=== PATIENT | female | born 1935 | race Caucasian/White ===

== ENCOUNTER 2018-11-11 17:29 | Emergency (ER) | payer MEDICARE ==
[2018-11-11] MEDS ORDERED: Ondansetron INJ* 2 MG/ML VIAL IV ONE (18:01)
[2018-11-11] MEDS ORDERED: NS 0.9% 1000 ML** 1,000 ML IV ONE (18:01)
[2018-11-11] MEDS ORDERED: Morphine VIAL* 10 MG/ML 1 ML VIAL IV ONE (18:01)
--- NOTE | 2018-11-11 18:07 | ED ---
Abdominal Pain/Female - HPI Summary HPI Summary: This pt is an 83 y/o female presenting to [facility] for left flank pain x3 days. She states her pain is non radiating and located on her left flank. Pt reports her pain is aggravated with deep breaths and sneezing. Denies any chest pain, SOB, nausea, vomiting, diarrhea, constipation. Per nurse's assessment, pt rates her pain 10/10 in severity. PMHx includes shingles, cholecystectomy, kidney stones. - History of Current Complaint Chief Complaint: EDAbdPain Stated Complaint: PAIN IN LEFT SIDE/HEART DROPPED DOWN, ITCHY PER PT Time Seen by Provider: 11/11/18 17:57 Hx Obtained From: Patient Onset/Duration: Lasting Days - 3, Still Present Timing: Days - 3 Severity Currently: Severe Pain Intensity: 10 Pain Scale Used: 0-10 Numeric Location: Flank - left Radiates: No Aggravating Factor(s): Deep Breaths Alleviating Factor(s): Nothing Associated Signs and Symptoms: Negative: Fever, Chest Pain, Constipation, Nausea , Vomiting, Diarrhea, Other: - SOB Allergies/Adverse Reactions: Allergies Allergy/AdvReac Type Severity Reaction Status Date / Time No Known Allergies Allergy Verified 11/11/18 17:34 PMH/Surg Hx/FS Hx/Imm Hx Endocrine/Hematology History: Reports: Hx Thyroid Disease - ON MEDS Cardiovascular History: Reports: Hx Hypertension - NO MEDS Denies: Hx Pacemaker/ICD, Other Cardiovascular Problems/Disorders GI History: Reports: Hx Gastroesophageal Reflux Disease, Hx Hiatal Hernia Musculoskeletal History: Reports: Hx Arthritis - WRIST AND FEET, LEGS AND BACK, Hx Bursitis Sensory History: Reports: Hx Cataracts - HAS HAD CATARACT SURGERY, Hx Contacts or Glasses Denies: Hx Hearing Aid Opthamlomology History: Reports: Hx Cataracts - HAS HAD CATARACT SURGERY, Hx Contacts or Glasses Neurological History: Denies: Other Neuro Impairments/Disorders Psychiatric History: Reports: Hx Anxiety - ON MEDS, Hx Depression - SEVERAL TIMES OVER THE YEARS, Hx Panic Disorder - Cancer History Cancer Type, Location and Year: Basal - Surgical History Surgery Procedure, Year, and Place: HYSTERECTOMY, , [facility]. GALLBLADDER, , [facility]. EMILIA CATARACTS, [facility], 2010. 1990S, EMILIA WRISTS, RIGHT 3 TIMES, [facility] - 4TH WRIST SURGERY NOW WITH PLATE. ABD SURGERY (ADIPOSE TISSUE REMOVAL) AND EMILIA BREAST REDUCTION, , [facility]. 6-7 SKIN CANCERS REMOVED. Marnie Hx Anesthesia Reactions: No Infectious Disease History: No Infectious Disease History: Reports: History Other Infectious Disease - shingles Denies: Traveled Outside the [place] in Last 30 Days - Family History Known Family History: Negative: Cardiac Disease, Hypertension, Diabetes - Social History Alcohol Use: None Substance Use Type: Reports: None Smoking Status (MU): Never Smoked Tobacco Have You Smoked in the Last Year: No Review of Systems Negative: Fever, Chills Negative: Chest Pain Negative: Shortness Of Breath Negative: Vomiting, Diarrhea, Nausea, Other - constipation Positive: flank pain - left All Other Systems Reviewed And Are Negative: Yes Physical Exam - Summary Physical Exam Summary: VITAL SIGNS: Reviewed. GENERAL: Patient is a well-developed and nourished female who is lying comfortable in the stretcher. Patient is not in any acute respiratory distress. HEAD AND FACE: Normocephalic EYES: PERRLA, EOMI x 2. EARS: Hearing grossly intact. MOUTH: Oropharynx within normal limits. NECK: Supple, trachea is midline, no adenopathy, no JVD, no carotid bruit. CHEST: Symmetric, no tenderness at palpation LUNGS: Clear to auscultation bilaterally. No wheezing or crackles. CVS: Regular rate and rhythm, S1 and S2 present, no murmurs or gallops appreciated. ABDOMEN: Soft, left flank tenderness. Bowel sounds are normal. No abdominal abnormal pulsations. EXTREMITIES: Full ROM in all major joints, no edema, no cyanosis or clubbing. NEURO: Alert and oriented x 3. No acute neurological deficits. Speech is normal and follows commands. SKIN: Dry and warm Triage Information Reviewed: Yes Vital Signs On Initial Exam: Initial Vitals Temp Pulse Resp BP Pulse Ox 98.3 F 101 18 121/74 99 11/11/18 17:34 11/11/18 17:34 11/11/18 17:34 11/11/18 17:34 11/11/18 17:34 Vital Signs Reviewed: Yes Diagnostics - Vital Signs Vital Signs Temp Pulse Resp BP Pulse Ox 11/11/18 17:34 98.3 F 101 18 121/74 99 - Laboratory Result Diagrams: 11/11/18 18:41 11/11/18 18:41 Lab Statement: Any lab studies that have been ordered have been reviewed, and results considered in the medical decision making process. - Radiology Chest XR Radiology Interpretation Completed By: ED Physician Summary of Radiographic Findings: Cardiomegaly. No acute pathology. She may have small pleural effusion. Questionable pulmonary nodules. - CT Abdomen/Pelvis CT CT Interpretation Completed By: Radiologist Summary of CT Findings: IMPRESSION: 1. No acute intra-abdominal pathology. 2. Scattered nodular opacities throughout the visualized lung bases, largest in the left lower lobe measuring 1.5 cm. Recommend correlation with dedicated chest imaging. 3. Other chronic findings, as above. Dr. Wilde has reviewed this report. - EKG 18:30 Cardiac Rate: NL - at 80 bpm EKG Rhythm: Sinus Rhythm EKG Comparison: No Significant Change - Similar to prior EKG on 02/03/15. Summary of EKG Findings: No ST elevations Re-Evaluation - Re-Evaluation First Eval Re-Evaluation Time: 18:28 Comment: Pt reports she is itchy all over. She states she has doubled up on her dose for Ativan. Will order Benadryl. Second Eval Re-Evaluation Time: 21:15 Comment: Reviewed lab, CT and CXR with pt. Pt will be discharged home with follow up from PCP. Abdominal Pain Fem Course/Dx - Course Course Of Treatment: This patient is an 83-year-old female who presents to the emergency department with a chief complaint of having left flank pain. She reports that the pain has been there for 3 days. The patient is intermittent and 10 out of 10 in severity. Patient reports history of kidney stones. Test results without any significant abnormality except for creatinine 1.33. Alkaline phosphatase is 118 and CRP is 87.14. Patient urineted w/o giving a sample. Waited a couple hours and she is unable to give urine. She reports she will f/u with PCP to check for a UTI. In the ED course the patient was given IV fluids and she was given Zofran and morphine for the pain. Abdominal/pelvic CT impression: No acute intra-abdominal pathology. His scattered nodular opacities throughout the visualized lung bases, largest in the left lower lobe measuring 1.5 cm. Positive chronic findings. After the patient was given these medications the patients symptoms improved. At this point the pain is 1 out of 10. Therefore I believe that the patient has musculoskeletal pain. I do not believe that the patient has pneumonia, she doesnt have any hypoxia or tachycardia therefore no suspicion for PE. Patient has lung nodules which she needs to follow up on with the primary care physician as an outpatient follow- up. Patient was given instructions to return to the emergency room if the patient develops any type of increased pain, nausea vomiting, dysuria or hematuria or fever. The patient also had hives and itching for which the patient was given Benadryl. The patient does have any shortness of breath, swelling of the tongue, or airway dysfunction. Patient is alert and oriented x3 , and hemodynamically stable. - Diagnoses Provider Diagnoses: Flank pain, Lung nodules, Urticaria Discharge - Sign-Out/Discharge Documenting (check all that apply): Patient Departure - Discharge home Patient Received Moderate/Deep Sedation with Procedure: No - Discharge Plan Condition: Stable Disposition: HOME Prescriptions: diPHENhydraMINE PO* [Benadryl PO 25 MG TAB*] 25 mg PO TID PRN #20 tab PRN Reason: Itching HYDROcodone/ACETAMIN 5-325 MG* [[place] 5-325 TAB*] 1 tab PO Q8H PRN #12 tab MDD 3 TABS PRN Reason: Pain Patient Education Materials: Urticaria (ED), Flank Pain (ED), Pulmonary Nodules (ED) Referrals: Naomi Ratliff MD [Primary Care Provider] - Additional Instructions: PLEASE FOLLOW UP WITH YOUR PRIMARY CARE PROVIDER IN 2-3 DAYS. RETURN TO THE ED FOR ANY WORSENING OR NEW SYMPTOMS. - Billing Disposition and Condition Condition: STABLE Disposition: Home - Attestation Statements Document Initiated by Son: Yes Documenting Scribe: Ingrid Avila Provider For Whom Son is Documenting (Include Credential): Jin Wilde MD Scribe Attestation: Ingrid Albright, scribed for Jin Wilde MD on 11/12/18 at 1015. Scribe Documentation Reviewed: Yes Provider Attestation: The documentation as recorded by the Ingrid noriega accurately reflects the service I personally performed and the decisions made by , Jin Wilde MD Status of Scribe Document: Viewed
[2018-11-11] MEDS ORDERED: diPHENhydraMINE PO* 25 MG PO ONE ×2 (18:28→21:13)
[2018-11-11 18:51] LABS: ABS Basophils 0.1 10^3/ul (0-0.2); ABS Eosinophils 0.4 10^3/ul (0-0.6); ABS Lymphocytes 1.1 10^3/ul (1.0-4.8); ABS Monocytes 0.9 10^3/ul (0-0.8); ABS Neutrophils 5.9 10^3/ul (1.5-7.7); ABS Nucleated RBC 0 10^3/ul; Eosinophil % 4.9 %; Hematocrit 40 % (35-47); Lymphocyte % 13.4 %; Mean Corpuscular HGB Conc 33 g/dl (31-36); Mean Corpuscular Hemoglobin 29 pg (27-31); Mean Corpuscular Volume 90 fL (80-97); Mean Platelet Volume 6.7 fL (7.4-10.4); Nucleated Red Blood Cells % 0; Platelet Count 309 10^3/ul (150-450); Red Blood Count 4.44 10^6/ul (4.00-5.40); Red Cell Distribution Width 13 % (10.5-15); White Blood Count 8.5 10^3/ul (3.5-10.8)
[2018-11-11 19:24] LABS: Albumin 4.2 g/dL (3.2-5.2); Albumin/Globulin Ratio 1.1 (1-3); C Reactive Protein 87.14 mg/L (<8.01); Calcium 9.5 mg/dL (8.6-10.3); EGFR African American 46.2 (>60); EGFR Non-African American 38.2 (>60); Potassium 4.2 mmol/L (3.5-5.0); Total Bilirubin 0.7 mg/dL (0.2-1.0); Total Protein 8.2 g/dL (6.4-8.9)
[2018-11-11] MEDS ORDERED: HYDROcodone/ACETAMIN 5-325 MG* 1 TAB PO ONE (21:13)
[2018-11-11 21:26] VITALS: BP 142/88
== END 2018-11-11 21:45 | disposition home or self-care (01) ==
LOC: ED 17:29
DX: R10.84 Generalized abdominal pain (principal); R91.8 Other nonspecific abnormal finding of lung field; L50.9 Urticaria, unspecified; K21.9 Gastro-esophageal reflux disease without esophagitis; Z87.19 Personal history of other diseases of the digestive system
CPT/HCPCS: 36415; 71046; 74176; 80053; 82150; 82550; 83605; 83690; 83880; 84484; 85025; 86140; 93005; 96374; 96375; 99283; A9270-GY; J2270; J2405

== ENCOUNTER 2018-11-24 13:27 | Emergency (ER) | payer MEDICARE ==
--- NOTE | 2018-11-24 16:56 | ED ---
Complex/Multi-Sys Presentation - HPI Summary HPI Summary: This patient is an 83 year old F presenting to ED with a chief complaint of LLQ abdominal pain radiating to the back but now it has rested on the R side of her abdomen since 2 weeks ago. The CC is described as sharp. She was seen in the ED 1 week ago and she had a CT done which was negative. The patient rates the pain 2/10 in severity. Symptoms aggravated by movement. Symptoms alleviated by nothing. Patient reports diffuse pruritus like somethings running through me for about 3 weeks ago and urinary incontinence (only has been going 2x a day, began a couple days ago). Patient denies N/V, SOB, CP, and edema. She has not been able to get in to see her PCP. The patient saw a doctor and she was negative for a UTI. The patient also saw a mechanical test technician for the rash and she was given a cream. - History Of Current Complaint Chief Complaint: EDAbdPain Time Seen by Provider: 11/24/18 13:43 Hx Obtained From: Patient Onset/Duration: Sudden Onset, Lasting Weeks Timing: Constant, Weeks Severity Currently: Mild - 2/10 Location: Pain At: - R-sided abdominal pain Aggravating Factor(s): movement Alleviating Factor(s): nothing Associated Signs And Symptoms: Positive: Abdominal Pain. Negative: SOB, Chest Pain, Edema, Nausea, Vomiting - Allergies/Home Medications Allergies/Adverse Reactions: Allergies Allergy/AdvReac Type Severity Reaction Status Date / Time No Known Allergies Allergy Verified 11/24/18 13:36 PMH/Surg Hx/FS Hx/Imm Hx Endocrine/Hematology History: Reports: Hx Thyroid Disease - ON MEDS Cardiovascular History: Reports: Hx Hypertension - NO MEDS Denies: Hx Pacemaker/ICD, Other Cardiovascular Problems/Disorders GI History: Reports: Hx Gastroesophageal Reflux Disease, Hx Hiatal Hernia Musculoskeletal History: Reports: Hx Arthritis - WRIST AND FEET, LEGS AND BACK, Hx Bursitis Sensory History: Reports: Hx Cataracts - HAS HAD CATARACT SURGERY, Hx Contacts or Glasses Denies: Hx Hearing Aid Opthamlomology History: Reports: Hx Cataracts - HAS HAD CATARACT SURGERY, Hx Contacts or Glasses Neurological History: Denies: Other Neuro Impairments/Disorders Psychiatric History: Reports: Hx Anxiety - ON MEDS, Hx Depression - SEVERAL TIMES OVER THE YEARS, Hx Panic Disorder - Cancer History Cancer Type, Location and Year: Basal - Surgical History Surgery Procedure, Year, and Place: HYSTERECTOMY, , [facility]. GALLBLADDER, , [facility]. EMILIA CATARACTS, [facility], 2010. 1990S, EMILIA WRISTS, RIGHT 3 TIMES, [facility] - 4TH WRIST SURGERY NOW WITH PLATE. ABD SURGERY (ADIPOSE TISSUE REMOVAL) AND EMILIA BREAST REDUCTION, , [facility]. 6-7 SKIN CANCERS REMOVED. Marnie Hx Anesthesia Reactions: No Infectious Disease History: No Infectious Disease History: Reports: History Other Infectious Disease - shinheidirip Denies: Traveled Outside the US in Last 30 Days - Family History Known Family History: Negative: Cardiac Disease, Hypertension, Diabetes - Social History Alcohol Use: None Substance Use Type: Reports: None Smoking Status (MU): Never Smoked Tobacco Have You Smoked in the Last Year: No Review of Systems Negative: Chest Pain Negative: Shortness Of Breath Positive: Abdominal Pain - LLQ abdominal pain radiating to the back but now it has rested on the R side of her abdomen . Negative: Vomiting, Nausea Positive: incontinence Positive: Other - back pain. Negative: Edema All Other Systems Reviewed And Are Negative: Yes Physical Exam - Summary Physical Exam Summary: Constitutional: Well-developed, Well-nourished, Alert. (-) Distressed Skin: Warm, Dry, Erythematous, papular, excoriated rash on her back HENT: Normocephalic; Atraumatic Eyes: Conjunctiva normal Neck: Musculoskeletal ROM normal neck. (-) JVD, (-) Stridor, (-) Tracheal deviation Cardio: Rhythm regular, rate normal, Heart sounds normal; Intact distal pulses; The pedal pulses are 2+ and symmetric. Radial pulses are 2+ and symmetric. (-) Murmur Pulmonary/Chest wall: Effort normal. (-) Respiratory distress, (-) Wheezes, (-) Rales Abd: Soft, (-) tenderness, (-) Distension, (-) Guarding, (-) Rebound Musculoskeletal: (-) Edema Lymph: (-) Cervical adenopathy Neuro: Alert, Oriented x3 Psych: Mood and affect Normal Triage Information Reviewed: Yes Vital Signs On Initial Exam: Initial Vitals Temp Pulse Resp BP Pulse Ox 98.2 F 85 18 129/75 98 11/24/18 13:37 11/24/18 13:37 11/24/18 13:37 11/24/18 13:37 11/24/18 13:37 Vital Signs Reviewed: Yes Diagnostics - Vital Signs Vital Signs Temp Pulse Resp BP Pulse Ox 11/24/18 15:54 98.1 F 74 16 120/75 98 11/24/18 13:37 98.2 F 85 18 129/75 98 - Laboratory Result Diagrams: 11/24/18 17:32 11/24/18 17:35 Lab Statement: Any lab studies that have been ordered have been reviewed, and results considered in the medical decision making process. Complex Multi-Symp Course/Dx Assessment/Plan: This patient is an 83 year old F presenting to ED with a chief complaint of LLQ abdominal pain radiating to the back but now it has rested on the R side of her abdomen since 2 weeks ago. There are no significant abnormalities upon physical exam. In the ED course, the patient was administered Flexeril and Atarax. Blood work reveals slightly elevated absolute monos, absolute eos, BUN, creatinine, and alkaline phosphatase, and decreased Hgb and MPV. UA is negative. She is diagnosed with chronic flank pain and dermatitis. She will be discharged home with a prescription for Flexeril and Atarax. She agrees with this plan and understands the need for return to the ED for any new or worsening symptoms. - Diagnoses Provider Diagnoses: Chronic flank pain, Dermatitis Discharge - Sign-Out/Discharge Documenting (check all that apply): Patient Departure - Patient will be discharged home. Patient Received Moderate/Deep Sedation with Procedure: No - Discharge Plan Condition: Good Disposition: HOME Prescriptions: Cyclobenzaprine TAB* [Flexeril 10 MG TAB*] 5 mg PO TID PRN #20 tab PRN Reason: Pain hydrOXYzine HCL TAB* [Atarax 25 MG TAB*] 25 mg PO QID PRN #20 tab PRN Reason: Itching Patient Education Materials: Flank Pain (ED), Dermatitis (ED) Print Language: OCCITAN Referrals: Naomi Ratliff MD [Primary Care Provider] - - Billing Disposition and Condition Condition: GOOD Disposition: Home - Attestation Statements Document Initiated by Scribe: Yes Documenting Scribe: Pedro Christine Provider For Whom Scribe is Documenting (Include Credential): Madalyn Powell Scribe Attestation: Pedro Albright, scribed for Madalyn Frank on 11/24/18 at 2113. Scribe Documentation Reviewed: Yes Provider Attestation: The documentation as recorded by the scribe, Pedro Christine accurately reflects the service I personally performed and the decisions made by me, Madalyn Powell Status of Scribe Document: Viewed
[2018-11-24 17:45] LABS: ABS Basophils 0.1 10^3/ul (0-0.2); ABS Eosinophils 0.7 10^3/ul (0-0.6); ABS Lymphocytes 1.6 10^3/ul (1.0-4.8); ABS Monocytes 0.9 10^3/ul (0-0.8); ABS Neutrophils 5.4 10^3/ul (1.5-7.7); ABS Nucleated RBC 0 10^3/ul; Eosinophil % 8.1 %; Hematocrit 35 % (33-41); Hemoglobin 11.5 g/dL (12.0-16.0); Lymphocyte % 18.7 %; Mean Corpuscular HGB Conc 33 g/dL (31-36); Mean Corpuscular Hemoglobin 30 pg (27-31); Mean Corpuscular Volume 90 fL (80-97); Mean Platelet Volume 6.8 fL (7.4-10.4); Nucleated Red Blood Cells % 0; Platelet Count 343 10^3/uL (150-450); Red Blood Count 3.91 10^6 /uL (3.70-4.87); Red Cell Distribution Width 14 % (10.5-15); White Blood Count 8.8 10^3/uL (3.5-10.8)
[2018-11-24 18:01] LABS: Albumin 3.7 g/dL (3.2-5.2); Albumin/Globulin Ratio 1.1 (1-3); BUN/Creatinine Ratio 35.9 (8-20); Calcium 9.4 mg/dL (8.6-10.3); EGFR African American 62.1 (>60); EGFR Non-African American 51.3 (>60); Globulin 3.3 g/dL (2-4); Potassium 4.4 mmol/L (3.5-5.0); Total Bilirubin 0.5 mg/dL (0.2-1.0)
[2018-11-24 18:21] LABS: Urine Appearance Clear; Urine Bilirubin Negative (Negative); Urine Blood Negative (Negative); Urine Color Yellow; Urine Glucose Negative (Negative); Urine Ketones Negative (Negative); Urine Nitrite Negative (Negative); Urine Protein Negative (Negative); Urine Specific Gravity 1.025 (1.010-1.030); Urine Urobilinogen Negative (Negative)
[2018-11-24] MEDS ORDERED: Cyclobenzaprine TAB* 10 MG PO ONE (18:37)
[2018-11-24] MEDS ORDERED: hydrOXYzine HCL TAB* 25 MG PO ONE (18:37)
[2018-11-24 19:31] VITALS: BP 120/76
== END 2018-11-24 19:29 | disposition home or self-care (01) ==
LOC: ED 13:27
DX: R10.32 Left lower quadrant pain (principal); L30.9 Dermatitis, unspecified; M54.9 Dorsalgia, unspecified; R32 Unspecified urinary incontinence; E07.9 Disorder of thyroid, unspecified; F41.9 Anxiety disorder, unspecified; Z90.49 Acquired absence of other specified parts of digestive tract
CPT/HCPCS: 36415; 80053; 81003; 85025; 99282; A9270-GY

== ENCOUNTER 2018-12-08 17:20 | Inpatient (IN) | payer MEDICARE ==
[2018-12-08 17:59] LABS: ABS Basophils 0.1 10^3/ul (0-0.2); ABS Eosinophils 0.1 10^3/ul (0-0.6); ABS Lymphocytes 1.2 10^3/ul (1.0-4.8); ABS Monocytes 0.6 10^3/ul (0-0.8); ABS Neutrophils 7.7 10^3/ul (1.5-7.7); ABS Nucleated RBC 0 10^3/ul; Hematocrit 43 % (33-41); Hemoglobin 14.5 g/dL (12.0-16.0); Lymphocyte % 12.5 %; Mean Corpuscular HGB Conc 34 g/dL (31-36); Mean Corpuscular Hemoglobin 30 pg (27-31); Mean Corpuscular Volume 88 fL (80-97); Mean Platelet Volume 7.6 fL (7.4-10.4); Nucleated Red Blood Cells % 0; Platelet Count 348 10^3/uL (150-450); Red Cell Distribution Width 15 % (10.5-15); White Blood Count 9.7 10^3/uL (3.5-10.8)
--- NOTE | 2018-12-08 17:59 | ED ---
Complex/Multi-Sys Presentation - HPI Summary HPI Summary: This patient is an 83 year old F presenting to ED accompanied by family with a chief complaint of increased memory loss since 12/04/2018. Her most recent fall was about 1 hour ago. The patient reports she hit her head on 12/06/18 that was unwitnessed. According to the nurse, the patient is unable to answer orientation questions except who she is and where shes at. The patient rates the pain 0/10 in severity. Symptoms aggravated by nothing. Symptoms alleviated by nothing. Patients family says she is more forgetful, and is c/o lower abdominal pain and pruritus. Patient says she has CP and cramps in my lungs. She is usually able to ambulate without a wheelchair or walker but has been using it recently because of how many times she falls. Patients family says the patient is refusing to eat. Patient denies dysuria, hematuria, and SOB. The nurse says no facial droop or arm weakness noted. Daughter says the patient has been sick for about 5 weeks. PMHx of removal of cancer spot on her back on 2018. - History Of Current Complaint Chief Complaint: EDWeakness Time Seen by Provider: 12/08/18 17:34 Hx Obtained From: Patient, Family/Harvest Manager - accompanied by family Onset/Duration: Sudden Onset, Lasting Days, Still Present Timing: Constant, Days Severity Currently: None Aggravating Factor(s): nothing Alleviating Factor(s): nothing Associated Signs And Symptoms: Positive: Chest Pain, Abdominal Pain - lower, Other - increased memory loss, "cramps in my lungs", pruritus, recent falls, decreased PO; denies dysuria, hematuria, and SOB. Negative: SOB - Allergies/Home Medications Allergies/Adverse Reactions: Allergies Allergy/AdvReac Type Severity Reaction Status Date / Time No Known Allergies Allergy Verified 11/24/18 13:36 Home Medications: Home Medications Doxycycline Hyclate 50 mg PO BID 12/08/18 [History Confirmed 12/08/18] Gabapentin CAP(*) [Neurontin 300 CAP(*)] 300 mg PO TID 12/08/18 [History Confirmed 12/08/18] Ibuprofen TAB* [Motrin TAB* 800 MG] 800 mg PO BID PRN 12/08/18 [History Confirmed 12/08/18] LORazepam TAB(*) [Ativan 1 MG TAB (*)] 1 mg PO DAILY PRN 12/08/18 [History Confirmed 12/08/18] Levothyroxine TAB* [Synthroid TAB*] 75 mcg PO QAM 12/08/18 [History Confirmed ] Permethrin 5% CREAM* 1 applic TOPICAL SEE INSTRUCTIONS 12/08/18 [History Confirmed 12/08/18] Triamcinolone 0.1% CREAM(NF) [Kenalog Cream 0.1%(NF)] 1 applic TOPICAL BID 12/08 [History Confirmed 12/08/18] PMH/Surg Hx/FS Hx/Imm Hx Endocrine/Hematology History: Reports: Hx Thyroid Disease - ON MEDS Cardiovascular History: Reports: Hx Hypertension - NO MEDS Denies: Hx Pacemaker/ICD, Other Cardiovascular Problems/Disorders GI History: Reports: Hx Gastroesophageal Reflux Disease, Hx Hiatal Hernia Musculoskeletal History: Reports: Hx Arthritis - WRIST AND FEET, LEGS AND BACK, Hx Bursitis Sensory History: Reports: Hx Cataracts - HAS HAD CATARACT SURGERY, Hx Contacts or Glasses Denies: Hx Hearing Aid Opthamlomology History: Reports: Hx Cataracts - HAS HAD CATARACT SURGERY, Hx Contacts or Glasses Neurological History: Denies: Other Neuro Impairments/Disorders Psychiatric History: Reports: Hx Anxiety - ON MEDS, Hx Depression - SEVERAL TIMES OVER THE YEARS, Hx Panic Disorder - Cancer History Cancer Type, Location and Year: Basal - Surgical History Surgery Procedure, Year, and Place: HYSTERECTOMY, , [facility]. GALLBLADDER, , [facility]. EMILIA CATARACTS, [facility], 2010. 1990S, EMILIA WRISTS, RIGHT 3 TIMES, [facility] - 4TH WRIST SURGERY NOW WITH PLATE. ABD SURGERY (ADIPOSE TISSUE REMOVAL) AND EMILIA BREAST REDUCTION, , [facility]. 6-7 SKIN CANCERS REMOVED. Marnie Hx Anesthesia Reactions: No Infectious Disease History: No Infectious Disease History: Reports: History Other Infectious Disease - shingles Denies: Traveled Outside the [place] in Last 30 Days - Family History Known Family History: Negative: Cardiac Disease, Hypertension, Diabetes - Social History Alcohol Use: None Substance Use Type: Reports: None Smoking Status (MU): Never Smoked Tobacco Have You Smoked in the Last Year: No Review of Systems Negative: Fever, Chills Negative: Erythema Negative: Sore Throat Positive: Chest Pain Positive: Other - "cramps in my lungs". Negative: Shortness Of Breath, Cough Positive: Abdominal Pain - lower, Other - decreased PO. Negative: Vomiting, Nausea Negative: dysuria, hematuria Positive: Other - recent falls. Negative: Myalgia, Edema Positive: Other - pruritus. Negative: Rash Neurological: Other - increased memory loss; per the nurse, no facial droop or arm weakness is noted All Other Systems Reviewed And Are Negative: Yes Physical Exam - Summary Physical Exam Summary: Constitutional: Well-developed, Well-nourished, Alert. (-) Distressed Skin: Warm, Dry HENT: Normocephalic; Atraumatic, dry mucous membranes Eyes: Conjunctiva normal Neck: Musculoskeletal ROM normal neck. (-) JVD, (-) Stridor, (-) Tracheal deviation Cardio: Rhythm regular, rate normal, Heart sounds normal; Intact distal pulses; The pedal pulses are 2+ and symmetric. Radial pulses are 2+ and symmetric. (-) Murmur Pulmonary/Chest wall: Effort normal. (-) Respiratory distress, (-) Wheezes, (-) Rales, Bibasilar crackles Abd: Soft, (-) epigastric tenderness, (-) Distension, (-) Guarding, (-) Rebound Musculoskeletal: (-) Edema Lymph: (-) Cervical adenopathy Neuro: Alert, Oriented x3 Psych: Mood and affect Normal GCS: 15 Triage Information Reviewed: Yes Vital Signs On Initial Exam: Initial Vitals Temp Pulse Resp BP Pulse Ox 96.3 F 107 20 116/86 100 12/08/18 17:23 12/08/18 17:23 12/08/18 17:23 12/08/18 17:23 12/08/18 17:23 Vital Signs Reviewed: Yes Diagnostics - Vital Signs Vital Signs Temp Pulse Resp BP Pulse Ox 12/08/18 17:23 96.3 F 107 20 116/86 100 - Laboratory Result Diagrams: 12/08/18 17:49 12/08/18 17:49 Lab Statement: Any lab studies that have been ordered have been reviewed, and results considered in the medical decision making process. - Radiology CXR Radiology Interpretation Completed By: Radiologist Summary of Radiographic Findings: NO EVIDENCE FOR ACUTE DISEASE. Dr. Laws has reviewed this radiology report. - CT Brain CT CT Interpretation Completed By: Radiologist Summary of CT Findings: 1. No traumatic intracranial abnormalities. 2. Age- related atrophy and mild chronic small vessel ischemic disease. Dr. Laws has reviewed this radiology report. CT C-spine CT Interpretation Completed By: Radiologist Summary of CT Findings: 1. No cervical spine traumatic abnormalities. 2. Mild multilevel cervical spondylopathy. Dr. Laws has reviewed this radiology report. Re-Evaluation - Re-Evaluation First Eval Re-Evaluation Time: 19:16 Comment: Discussed results and plan for admission. Patient understands and agrees with this plan. Complex Multi-Symp Course/Dx Assessment/Plan: This patient is an 83 year old F presenting to ED accompanied by family with a chief complaint of increased memory loss since 12/04/2018. In the ED course, the patient was given fluids. CXR reveals NO EVIDENCE FOR ACUTE DISEASE. Brain CT reveals 1. No traumatic intracranial abnormalities. 2. Age- related atrophy and mild chronic small vessel ischemic disease. CT C-spine reveals 1. No cervical spine traumatic abnormalities. 2. Mild multilevel cervical spondylopathy. Consulted Dr. Asher about the patient's case at 1847 and she accepts the patient for admission. This patient will be admitted with dx of acute renal failure and hypovolemia. Patient and family understand and agree with this plan. - Diagnoses Differential Diagnoses/HQI/PQRI: Other - acute renal failure and hypovolemia Provider Diagnoses: Acute renal failure, Hypovolemia - Physician Notifications Discussed Care Of Patient With: Eli Asher Time Discussed With Above Provider: 18:47 Instructed by Provider To: Admit As Inpatient Discharge - Sign-Out/Discharge Documenting (check all that apply): Patient Departure - admit Patient Received Moderate/Deep Sedation with Procedure: No - Discharge Plan Condition: Stable Disposition: ADMITTED TO [facility] Referrals: Naomi Ratliff MD [Primary Care Provider] - - Attestation Statements Document Initiated by Scribe: Yes Documenting Scribe: Pedro Christine Provider For Whom Janetteibe is Documenting (Include Credential): Quentin Laws MD Scribe Attestation: Pedro Albright, scribed for Quentin Laws MD on 12/08/18 at 1915. Status of Scribe Document: Ready
[2018-12-08 18:07] LABS: Activated Partial Thrombo Time 34.5 seconds (26.0-36.3); INR 1.15 (0.77-1.02)
[2018-12-08] MEDS: NS 0.9% 1000 ML** 2,000 ML IV ONE ×2 (18:12→18:13)
[2018-12-08 18:22] LABS: Albumin 3.9 g/dL (3.2-5.2); Albumin/Globulin Ratio 0.9 (1-3); BUN/Creatinine Ratio 55.8 (8-20); Calcium 9.9 mg/dL (8.6-10.3); EGFR African American 24.2 (>60); Globulin 4.2 g/dL (2-4); Potassium 4.1 mmol/L (3.5-5.0); Total Bilirubin 0.7 mg/dL (0.2-1.0); Total Protein 8.1 g/dL (6.4-8.9)
[2018-12-08 18:24] LABS: Troponin I 0.03 ng/mL (<0.04)
[2018-12-08] MEDS ORDERED: ED cefTRIAXone 1 GM/50 ML 1 GM/50 ML PREMIX.SET IVPB ONE (19:21)
[2018-12-08 19:40] LABS: Urine Appearance Cloudy; Urine Bacteria Absent (Absent); Urine Bilirubin Negative (Negative); Urine Blood 2+ (Negative); Urine Color Yellow; Urine Glucose Negative (Negative); Urine Ketones Negative (Negative); Urine Nitrite Negative (Negative); Urine Protein Negative (Negative); Urine Red Blood Cell Trace(0-2/hpf) (Absent); Urine Specific Gravity 1.015 (1.010-1.030); Urine Squamous Epithelial Cell Present (Absent); Urine Urobilinogen Negative (Negative); Urine White Blood Cell 2+(11-20/hpf) (Absent)
[2018-12-08] MEDS ORDERED: NS 0.9% 1000 ML** 1,000 ML IV ONE (20:39)
[2018-12-08 22:06] LABS: Alcohol < 10 mg/dL (<10); Prealbumin 15 mg/dL (18-38)
[2018-12-08 22:20] LABS: TSH (Thyroid Stimulating Horm) 0.16 mcIU/mL (0.34-5.60)
[2018-12-08] MEDS: Heparin VIAL(*) 5000 UNITS/ML VIAL (FIVE THOUSAND) SUBCUT SCH (22:44)
[2018-12-08] MEDS: NS 0.9% 1000 ML** 1,000 ML IV SCH (22:44)
[2018-12-09 00:21] LABS: Free T4 1.07 ng/dL (0.61-1.12)
--- NOTE | 2018-12-09 00:25 | HP ---
CC: Naomi Ratliff MD * HISTORY AND PHYSICAL: DATE OF ADMISSION: 12/08/18 PRIMARY CARE PROVIDER: Namoi Ratliff MD. ATTENDING PHYSICIAN: Bruna Guadarrama MD * (dictated by CÉSAR Acevedo). CHIEF COMPLAINT: Weakness, decreased oral intake. HISTORY OF PRESENT ILLNESS: Ms. Martin is an 83-year-old female with a past medical history of hiatal hernia, GERD, hyperlipidemia, hypothyroidism, who presents to the ER today at the request of her son and daughter. She states that she was forced here. She states that she has not been eating "because I do not want to gain weight." She also notes that when she eats she gets a cramping feeling in the stomach and she immediately has diarrhea. She describes her bowel movements as brown in color, although she states she does not look at them often. Her daughter states that she noted the color was brown today, both deny melena and hematochezia. The patient is typically ambulatory and very active. Her daughter notes that she mows her own lawn over the summer , now she has decreased walking due to weakness. She also reports 3 to 4 falls in the last week. The patient noted that she did hit her head on one occasion. It is noted that the patient has been to the ER twice in the last 1 month. She presented in the beginning of November with abdominal pain and left flank pain and had a CT abdomen and pelvis without contrast that showed no acute intraabdominal pathology, scattered nodular opacities throughout the lung bases. She went to the ER on 11/24/18 and was discharged with flank pain and dermatitis. Currently, she complains of diarrhea x2 days, which occurs every time she eats solid food. She denies weight loss, although notes that does not weigh herself. She denies cough, fever, confusion. Her daughter states that she is occasionally confused regarding details. She denies any focal weakness or sidedness. She denies urinary symptoms. She denies presyncope or syncope. She denies loss of consciousness with falls. She denies use of NSAIDs or alcohol. In the ER, the patient received a full workup including chest x-ray, brain and C-spine CAT scan as well as laboratory work. The hospitalist team was asked to evaluate the patient for admission. PAST MEDICAL HISTORY: 1. Hyperlipidemia. 2. Hypothyroidism. 3. GERD. 4. Hiatal hernia. 5. Neuropathy. 6. History of skin cancer. PAST SURGICAL HISTORY: 1. Cholecystectomy. 2. Hysterectomy. 3. Cataracts. 4. Bilateral wrist surgery, multiple on the right. 5. Abdominal surgery where adipose tissue was removed. 6. Bilateral breast reduction. 7. She is also noted to have had 6 to 7 skin cancers removed, most recent was on Saturday on her back. HOME MEDICATIONS: 1. Lorazepam 1 mg p.o. daily p.r.n. 2. Omeprazole 40 mg p.o. daily. 3. Levothyroxine 75 mcg p.o. q.a.m. 4. Simvastatin 40 mg p.o. daily. 5. Gabapentin 300 mg p.o. q.i.d. ALLERGIES: No known drug allergies. FAMILY HISTORY: The patient states that she has an extensive history of cancer throughout her family including lung, skin, and brain cancer. Her daughter has had a CVA. She denies a cardiac history. SOCIAL HISTORY: The patient states that she has never smoked. She socially drinks alcohol and has not done so in quite some time. She does not use illicit drugs. She is retired from [employer]. She typically lives alone, and her boyfriend visits on the weekends, but her daughter has been staying with her for the past approximately 5 weeks due to ongoing illness. In the event that she is unable to make her own medical decision, she appoints her daughter Hanna Rowe, home phone number is [phone], cell number [phone] to be her surrogate decision maker. REVIEW OF SYSTEMS: A 10-point review of systems was performed and all the pertinent positives and negatives are in the HPI. All other findings are negative. PHYSICAL EXAMINATION GENERAL: Ms. Martin is a well-developed, well-nourished elderly white woman, who is sitting up in bed. She appears pale, but not acutely ill, she is in no acute distress. VITAL SIGNS: Temperature 96.3, heart rate 112, respiratory rate 16, oxygen saturation 97% on room air, blood pressure 159/91. HEENT: Visual carranza are grossly intact. Her pupils are equally round and reactive to light. Extraocular movements are intact. Hearing is grossly intact. The oral mucous membranes are dry. There are no lesions. The pharynx is clear. RESPIRATORY: Symmetrical chest expansion with no use of accessory muscles. The lungs are clear to auscultation. There is no rhonchi, wheezes or rubs. CARDIOVASCULAR: Regular rate and rhythm with S1, S2 present. There are no murmurs, rubs or gallops. There is no JVD. ABDOMEN: Bowel sounds are hypoactive throughout. The abdomen is soft, is nontender. There is no hepatosplenomegaly. EXTREMITIES: Skin is warm and smooth bilaterally. There is no edema. There is no clubbing or cyanosis. Radial pulses 1+ bilaterally, pedal pulses 2+ bilaterally. NEURO: The patient is awake. She is alert. She is oriented to self and location. She is able to move all of her extremities. Her motor strength is 5/ 5 in both upper and lower extremities bilaterally. The skin is grossly intact. There is a healing wound on the right upper back with no signs of infection. The wound is intact. There is no discharge. There is no surrounding erythema. This is from the removal of a skin cancer that occurred on Saturday. DIAGNOSTIC STUDIES/LAB DATA: Chest x-ray 12/08/18, impression: No evidence for acute disease. Brain CT on 12/08/18, impression: No traumatic intracranial abnormalities, age - related atrophy and mild chronic small vessel ischemic disease. Cervical spine CT 12/08/18, impression: No cervical spine traumatic abnormalities, mild multilevel cervical spondylopathy. WBC 9.7, RBC 4.9, HGB 14.5, HCT 43, platelets 348. Sodium 136, potassium 4.1, chloride 106, carbon dioxide 16, anion gap 14, BUN 130, creatinine 2.33. BUN over creatinine ratio 55.8. Lactic acid 1.3. AST 60, ALT 39, alk phos 201. Troponin 0.03, albumin 3.9, globulin 4.2. ASSESSMENT AND PLAN: Ms. Martin is an 83-year-old female with a past medical history as described above, who presents to the ER today with complaints of weakness and decreased oral intake. The patient will be admitted inpatient for: 1. Anion gap metabolic acidosis with uremia and acute kidney injury, unsure if this is prerenal or due to gastrointestinal bleed. Hemoglobin is within normal limits, but may be hemoconcentrated. Ordered fecal occult blood to rule out gastrointestinal bleed. Unsure if this is due to hypovolemia and dehydration. FENa, urine sodium, and urine creatinine have been ordered. The patient will be given 3 L bolus of normal saline followed by normal saline at 125 an hour after that. 2. Weakness. This could also be multifactorial likely due, in part, to decreased p.o. intake but could also be due to acute kidney injury causing poor renal excretion of medication such as gabapentin or lorazepam. These medications will be held temporarily. Physical therapy, occupational therapy, and nutritional consult will be ordered. I's and O's and calorie count have also been ordered. TSH ordered. 3. Possible urinary tract infection. The patient did have 3+ leukocyte esterase, but there was no bacteria and there was presence of squamous epithelial cells, which could indicate contamination. Ceftriaxone 1 g IV was given in the ER. The patient denies symptoms of urinary tract infection such as frequency, urgency, burning, or retention. Urine has been sent to the lab for culture and sensitivity. 4. Gastroesophageal reflux disease. Continue omeprazole 40 mg p.o. daily. 5. Hypothyroidism. Continue levothyroxine 75 mcg p.o. q.a.m. 6. Hyperlipidemia. Continue simvastatin. 7. DVT prophylaxis: According to the DVT risk assessment, the patient scores 3 and is high risk. She will be placed on heparin 5000 subcu q.8 hours. 8. FEN: The patient will have a heart healthy diet with no caffeine. TIME SPENT: Approximately 70 minutes were spent on this admission, greater than half that time was spent with the patient and her caregivers obtaining history, performing a physical, and reviewing the plan of care. This case has been reviewed with my attending Dr. Guadarrama, who is in agreement with the plan of care. CÉSAR SMITH [id number]/[facility] #: [id number] SHREE
--- NOTE | 2018-12-09 00:41 | PN ---
Progress Note - Progress Note Date of Service: 12/09/18 Note: Patient with hypothyroid on synthroid. TSH low with normal Free T4. Will lower her synthroid dose to 50 mcg from 75 mcg. Recommend follow up in 2-3 weeks.
[2018-12-09] MEDS: Levothyroxine TAB* 50 MCG TAB PO SCH (05:08)
[2018-12-09] MEDS: Heparin VIAL(*) 5000 UNITS/ML VIAL (FIVE THOUSAND) SUBCUT SCH ×3 (05:08→21:15)
[2018-12-09] MEDS ORDERED: Levothyroxine TAB* 75 MCG TAB PO SCH (06:00)
[2018-12-09 07:07] LABS: ABS Basophils 0.1 10^3/ul (0-0.2); ABS Eosinophils 0.3 10^3/ul (0-0.6); ABS Lymphocytes 1.5 10^3/ul (1.0-4.8); ABS Monocytes 0.7 10^3/ul (0-0.8); ABS Nucleated RBC 0 10^3/ul; Eosinophil % 3.9 %; Hematocrit 34 % (33-41); Hemoglobin 11.3 g/dL (12.0-16.0); Lymphocyte % 19.3 %; Mean Corpuscular HGB Conc 33 g/dL (31-36); Mean Corpuscular Hemoglobin 29 pg (27-31); Mean Corpuscular Volume 88 fL (80-97); Mean Platelet Volume 7.4 fL (7.4-10.4); Nucleated Red Blood Cells % 0; Platelet Count 216 10^3/uL (150-450); Red Blood Count 3.85 10^6 /uL (3.70-4.87); Red Cell Distribution Width 15 % (10.5-15); White Blood Count 7.5 10^3/uL (3.5-10.8)
[2018-12-09 07:25] LABS: Albumin 2.8 g/dL (3.2-5.2); BUN/Creatinine Ratio 67.7 (8-20); Calcium 8.1 mg/dL (8.6-10.3); EGFR African American 47.5 (>60); EGFR Non-African American 39.2 (>60); Globulin 2.9 g/dL (2-4); Potassium 3.4 mmol/L (3.5-5.0); Total Bilirubin 0.6 mg/dL (0.2-1.0); Total Protein 5.7 g/dL (6.4-8.9)
[2018-12-09] MEDS: NS 0.9% 1000 ML** 1,000 ML IV SCH (08:21)
[2018-12-09] MEDS: Pantoprazole TAB * 40 MG TAB PO SCH (08:25)
[2018-12-09] MEDS: Atorvastatin* 20 MG TAB PO SCH (08:25)
[2018-12-09 08:42] LABS: Urine Creatinine Concentration 39.31 mg/dL
[2018-12-09] MEDS ORDERED: Potassium Chlor TAB* 20 MEQ TAB.ER PO ONE (11:26)
[2018-12-09] MEDS: Lactated Ringers 1000 ML Bag* 1,000 ML IV SCH (13:54)
--- NOTE | 2018-12-09 15:37 | PN ---
Subjective Date of Service: 12/09/18 Interval History: Resting in bed on assessment. Patient alert to self and place. She is engaging in ROS and exam well. Patient denies abd pain, diarrhea, nausea, vomiting. Reports she has not had any diarrhea since admission. Denies cp, sob, palpitations, dizziness, headache, focal weakness. Objective Active Medications: Atorvastatin Calcium (Lipitor*) 20 mg PO DAILY [facility] Last Admin: 12/09/18 08:25 Dose: 20 mg Heparin Sodium (Porcine) (Heparin Vial(*)) 5,000 units SUBCUT Q8HR [facility] Last Admin: 12/09/18 13:55 Dose: 5,000 units Lactated Ringer's (Lactated Ringers 1000 Ml Bag*) 1,000 mls @ 125 mls/hr IV PER RATE [facility] Last Admin: 12/09/18 13:54 Dose: 125 mls/hr Levothyroxine Sodium (Synthroid Tab*) 50 mcg PO 0600 [facility] Last Admin: 12/09/18 05:08 Dose: 50 mcg Pantoprazole Sodium (Protonix Tab*) 40 mg PO DAILY [facility] Last Admin: 12/09/18 08:25 Dose: 40 mg Vital Signs - 8 hr 12/09/18 12/09/18 12/09/18 07:36 08:00 11:29 Temperature 97.1 F 97.4 F Pulse Rate 82 83 Respiratory 16 16 18 Rate Blood Pressure 126/59 117/60 (mmHg) O2 Sat by Pulse 99 100 Oximetry Oxygen Devices in Use Now: None Appearance: Comfortable, NAD Eyes: No Scleral Icterus Ears/Nose/Mouth/Throat: Clear Oropharnyx, Mucous Membranes Moist Neck: NL Appearance and Movements; NL JVP Respiratory: Symmetrical Chest Expansion and Respiratory Effort, Clear to Auscultation Cardiovascular: NL Sounds; No Murmurs; No JVD, RRR, No Edema Abdominal: NL Sounds; No Tenderness; No Distention Lymphatic: No Cervical Adenopathy Extremities: No Clubbing, Cyanosis Skin: No Rash or Ulcers Neurological: NL Muscle Strength and Tone, - - Alert to self and place. Nutrition: Taking PO's Result Diagrams: 12/09/18 06:53 12/09/18 06:53 Additional Lab and Data: Laboratory Results - last 24 hr 12/08/18 12/08/18 12/08/18 17:35 17:49 17:49 WBC 9.7 RBC 4.90 H Hgb 14.5 Hct 43 H MCV 88 MCH 30 MCHC 34 RDW 15 Plt Count 348 MPV 7.6 Neut % (Auto) 79.0 Lymph % (Auto) 12.5 [place] % (Auto) 6.1 Eos % (Auto) 1.0 Baso % (Auto) 1.4 Absolute Neuts (auto) 7.7 Absolute Lymphs (auto) 1.2 Absolute Monos (auto) 0.6 Absolute Eos (auto) 0.1 Absolute Basos (auto) 0.1 Absolute Nucleated RBC 0 Nucleated RBC % 0 INR (Anticoag Therapy) 1.15 H APTT 34.5 Sodium Potassium Chloride Carbon Dioxide Anion Gap BUN Creatinine Est GFR ( Amer) Est GFR (Non-Af Amer) BUN/Creatinine Ratio Glucose Lactic Acid Calcium Total Bilirubin AST ALT Alkaline Phosphatase Troponin I Total Protein Albumin Globulin Albumin/Globulin Ratio Prealbumin TSH Free T4 Urine Color Yellow Urine Appearance Cloudy Urine pH 5.0 Ur Specific [place] 1.015 Urine Protein Negative Urine Ketones Negative Urine Blood 2+ A Urine Nitrate Negative Urine Bilirubin Negative Urine Urobilinogen Negative Ur Leukocyte Esterase 3+ A Urine WBC (Auto) 2+(11-20/hpf) A Urine RBC (Auto) Trace(0-2/hpf) Ur Squamous Epith Cells Present A Urine Bacteria Absent Ur Creatinine Concen U Sodium Concentration Urine Glucose Negative Serum Alcohol 12/08/18 12/08/18 12/08/18 17:49 17:49 21:18 WBC RBC Hgb Hct MCV MCH MCHC RDW Plt Count MPV Neut % (Auto) Lymph % (Auto) [place] % (Auto) Eos % (Auto) Baso % (Auto) Absolute Neuts (auto) Absolute Lymphs (auto) Absolute Monos (auto) Absolute Eos (auto) Absolute Basos (auto) Absolute Nucleated RBC Nucleated RBC % INR (Anticoag Therapy) APTT Sodium 136 Potassium 4.1 Chloride 106 Carbon Dioxide 16 L Anion Gap 14 H BUN 130 H Creatinine 2.33 H Est GFR ( Amer) 24.2 Est GFR (Non-Af Amer) 20.0 BUN/Creatinine Ratio 55.8 H Glucose 186 H Lactic Acid 1.3 0.6 Calcium 9.9 Total Bilirubin 0.70 AST 60 H ALT 39 Alkaline Phosphatase 201 H Troponin I 0.03 Total Protein 8.1 Albumin 3.9 Globulin 4.2 H Albumin/Globulin Ratio 0.9 L Prealbumin TSH Free T4 Urine Color Urine Appearance Urine pH Ur Specific [place] Urine Protein Urine Ketones Urine Blood Urine Nitrate Urine Bilirubin Urine Urobilinogen Ur Leukocyte Esterase Urine WBC (Auto) Urine RBC (Auto) Ur Squamous Epith Cells Urine Bacteria Ur Creatinine Concen U Sodium Concentration Urine Glucose Serum Alcohol 12/08/18 12/09/18 12/09/18 21:18 06:53 06:53 WBC 7.5 RBC 3.85 Hgb 11.3 L Hct 34 MCV 88 MCH 29 MCHC 33 RDW 15 Plt Count 216 MPV 7.4 Neut % (Auto) 67.0 Lymph % (Auto) 19.3 [place] % (Auto) 9.0 Eos % (Auto) 3.9 Baso % (Auto) 0.8 Absolute Neuts (auto) 5.0 Absolute Lymphs (auto) 1.5 Absolute Monos (auto) 0.7 Absolute Eos (auto) 0.3 Absolute Basos (auto) 0.1 Absolute Nucleated RBC 0 Nucleated RBC % 0 INR (Anticoag Therapy) APTT Sodium 140 Potassium 3.4 L Chloride 114 H Carbon Dioxide 15 L Anion Gap 11 BUN 88 H Creatinine 1.30 H Est GFR ( Amer) 47.5 Est GFR (Non-Af Amer) 39.2 BUN/Creatinine Ratio 67.7 H Glucose 79 Lactic Acid Calcium 8.1 L Total Bilirubin 0.60 AST 38 ALT 25 Alkaline Phosphatase 138 H Troponin I Total Protein 5.7 L Albumin 2.8 L Globulin 2.9 Albumin/Globulin Ratio 1.0 Prealbumin 15 L TSH 0.16 L Free T4 1.07 Urine Color Urine Appearance Urine pH Ur Specific [place] Urine Protein Urine Ketones Urine Blood Urine Nitrate Urine Bilirubin Urine Urobilinogen Ur Leukocyte Esterase Urine WBC (Auto) Urine RBC (Auto) Ur Squamous Epith Cells Urine Bacteria Ur Creatinine Concen U Sodium Concentration Urine Glucose Serum Alcohol < 10 12/09/18 08:12 WBC RBC Hgb Hct MCV MCH MCHC RDW Plt Count MPV Neut % (Auto) Lymph % (Auto) [place] % (Auto) Eos % (Auto) Baso % (Auto) Absolute Neuts (auto) Absolute Lymphs (auto) Absolute Monos (auto) Absolute Eos (auto) Absolute Basos (auto) Absolute Nucleated RBC Nucleated RBC % INR (Anticoag Therapy) APTT Sodium Potassium Chloride Carbon Dioxide Anion Gap BUN Creatinine Est GFR ( Amer) Est GFR (Non-Af Amer) BUN/Creatinine Ratio Glucose Lactic Acid Calcium Total Bilirubin AST ALT Alkaline Phosphatase Troponin I Total Protein Albumin Globulin Albumin/Globulin Ratio Prealbumin TSH Free T4 Urine Color Urine Appearance Urine pH Ur Specific [place] Urine Protein Urine Ketones Urine Blood Urine Nitrate Urine Bilirubin Urine Urobilinogen Ur Leukocyte Esterase Urine WBC (Auto) Urine RBC (Auto) Ur Squamous Epith Cells Urine Bacteria Ur Creatinine Concen 39.31 U Sodium Concentration 42 Urine Glucose Serum Alcohol Microbiology and Other Data: . Assess/Plan/Problems-Billing Assessment: 83 yr old female who has pmh of hld, hypothyroid, gerd, hiatal hernia, and neuropathy; who presented to the ED with c/o abd pain, diarrhea, increase weakness and frequent falls - Patient Problems (1) Metabolic acidosis Comment: - Anion gap metabolic acidosis on admissoin, bolus of NS provided, NS continued as infusion - Today Chloride 114 and Carbon dioxide 15, therefore, IVF changed to LR - Cont to monitor (2) Acute kidney injury Comment: - On admission creatinine 2.33 and today 1.30 - Fena consistent with pre - renal and improving with IVF; suspected dehydration - Continue IVF and monitor creatinine (3) Hypothyroidism Comment: - TSH elevated on admission and Levothyroxine decreased in response. - Will need repeat TSH in 4 to 6 wks as outpatient. - Continue lower dose of Levothyroxine. (4) Diarrhea Comment: - Reported diarrhea after eating when presenting to ED yesterday. - Denies diarrhea today since being admitted. - Could be secondary to hyperthyroid state noted on admission (5) Abdominal pain Comment: - On admission reports abd pain/cramping with eating - Today ate 10 and 20 percent of breakfast and lunch respectively. Denies pain. - Cont to monitor. (6) Weakness Comment: - Phyiscal therapy consulting - MY? (7) Hyperlipidemia Comment: - Cont Simvastatin (8) GERD (gastroesophageal reflux disease) Comment: - Cont omeprazole - Currently asymptomatic (9) DVT prophylaxis Comment: - SQ heparin. Status and Disposition: Inpatient. May need MY at discharge as she lives alone Attending: Mihaela Borja
[2018-12-10] MEDS: Lactated Ringers 1000 ML Bag* 1,000 ML IV SCH (02:14)
[2018-12-10] MEDS: Levothyroxine TAB* 50 MCG TAB PO SCH (05:35)
[2018-12-10] MEDS: Heparin VIAL(*) 5000 UNITS/ML VIAL (FIVE THOUSAND) SUBCUT SCH ×3 (05:35→21:29)
--- NOTE | 2018-12-10 06:07 | PN ---
Progress Note - Progress Note Date of Service: 12/10/18 Note: Per RN - crackles heard on respiratory exam. Will d/c IVFs.
[2018-12-10 07:24] LABS: Albumin 2.8 g/dL (3.2-5.2); Albumin/Globulin Ratio 0.9 (1-3); BUN/Creatinine Ratio 49.4 (8-20); Calcium 8.5 mg/dL (8.6-10.3); EGFR African American 75.4 (>60); EGFR Non-African American 62.3 (>60); Potassium 3.9 mmol/L (3.5-5.0); Total Bilirubin 0.6 mg/dL (0.2-1.0); Total Protein 5.8 g/dL (6.4-8.9)
[2018-12-10] MEDS: Pantoprazole TAB * 40 MG TAB PO SCH (09:41)
[2018-12-10] MEDS: Atorvastatin* 20 MG TAB PO SCH (09:41)
[2018-12-10 09:59] LABS: Magnesium 1.6 mg/dL (1.9-2.7)
[2018-12-10] MEDS ORDERED: cefTRIAXone(*) 1 GM in NS 0.9% 50 ML* 50 ML IVPB SCH (10:00)
--- NOTE | 2018-12-10 12:49 | PN ---
Subjective Date of Service: 12/10/18 Interval History: Patient sitting in chair on assessment. Reports she has not had any episodes of diarrhea since admission. In addition she ate meals yesterday and breakfast today with no pain or diarrhea. Denies weakness, dizziness, chest pain or palpitations. Objective Active Medications: Atorvastatin Calcium (Lipitor*) 20 mg PO DAILY [facility] Last Admin: 12/10/18 09:41 Dose: 20 mg Heparin Sodium (Porcine) (Heparin Vial(*)) 5,000 units SUBCUT Q8HR [facility] Last Admin: 12/10/18 05:35 Dose: 5,000 units Levothyroxine Sodium (Synthroid Tab*) 50 mcg PO 0600 [facility] Last Admin: 12/10/18 05:35 Dose: 50 mcg Pantoprazole Sodium (Protonix Tab*) 40 mg PO DAILY [facility] Last Admin: 12/10/18 09:41 Dose: 40 mg Vital Signs - 8 hr 12/10/18 12/10/18 12/10/18 05:00 07:21 11:30 Temperature 97.1 F 97.3 F Pulse Rate 80 94 99 Respiratory 16 16 Rate Blood Pressure 133/69 113/73 (mmHg) O2 Sat by Pulse 99 99 Oximetry Oxygen Devices in Use Now: None Appearance: Comfortable, NAD Eyes: No Scleral Icterus Ears/Nose/Mouth/Throat: Clear Oropharnyx, Mucous Membranes Moist Neck: NL Appearance and Movements; NL JVP Respiratory: Symmetrical Chest Expansion and Respiratory Effort, Clear to Auscultation Cardiovascular: NL Sounds; No Murmurs; No JVD, RRR, No Edema Abdominal: NL Sounds; No Tenderness; No Distention Lymphatic: No Cervical Adenopathy Extremities: No Edema, No Clubbing, Cyanosis Skin: No Rash or Ulcers Neurological: NL Muscle Strength and Tone, - - Alert. Oriented to self and place. Nutrition: Taking PO's Result Diagrams: 12/09/18 06:53 12/10/18 06:22 Additional Lab and Data: Laboratory Results - last 24 hr 12/10/18 06:22 Sodium 141 Potassium 3.9 Chloride 113 H Carbon Dioxide 20 L Anion Gap 8 BUN 43 H Creatinine 0.87 Est GFR ( Amer) 75.4 Est GFR (Non-Af Amer) 62.3 BUN/Creatinine Ratio 49.4 H Glucose 81 Calcium 8.5 L Magnesium 1.6 L Total Bilirubin 0.60 AST 42 H ALT 31 Alkaline Phosphatase 141 H Total Protein 5.8 L Albumin 2.8 L Globulin 3.0 Albumin/Globulin Ratio 0.9 L Microbiology and Other Data: Microbiology 12/08/18 17:35 Urine Urine Culture - Final Escherichia Coli 12/09/18 20:52 Stool Stool Occult Blood (BAYRON) - Final 12/08/18 17:35 Blood Venous Aerobic Blood Culture - Preliminary No Growth Day 1 12/08/18 17:35 Blood Venous Anaerobic Blood Culture - Preliminary No Growth Day 1 12/08/18 17:49 Blood Venous Aerobic Blood Culture - Preliminary No Growth Day 1 12/08/18 17:49 Blood Venous Anaerobic Blood Culture - Preliminary No Growth Day 1 Assess/Plan/Problems-Billing Assessment: 83 yr old female who has pmh of hld, hypothyroid, gerd, hiatal hernia, and neuropathy; who presented to the ED with c/o abd pain, diarrhea, increase weakness and frequent falls - Patient Problems (1) Urine finding Comment: - Urine grew 25,000 to 50,000 Ecoli. - Suspected contaimination and/or colonization. - Free from other signs/symptoms of UTI or infection. - Did have hoskins placed in ED. Order placed to remove today. (2) Metabolic acidosis Comment: - Anion gap metabolic acidosis on admissoin, initially received NS than changed to LR given hyperchorimic metabolic acidosis. - Last night nurse expressed concern for crackles at bases and IVF discontinued by night time provider - Labs improving - Cont to monitor (3) Acute kidney injury Comment: - On admission creatinine 2.33 and now 0.81 - Fena consistent with pre - renal and improved with IVF; suspected secondary to dehydration - Continue PO fluids (4) Hypothyroidism Comment: - TSH elevated on admission and Levothyroxine decreased in response. - Will need repeat TSH in 4 to 6 wks as outpatient. - Continue lower dose of Levothyroxine. (5) Diarrhea Comment: - Reported diarrhea after eating when presenting to ED yesterday. - Denies diarrhea since admission - Could be secondary to hyperthyroid state noted on admission (6) Abdominal pain Comment: - On admission reports abd pain/cramping with eating - Has been eating without difficulty and continues to deny abd pain/cramping - Cont to monitor. (7) Weakness Comment: - Phyiscal therapy consulting - Per SW PT recommend MY, but daughter refused stating she will take the patient home and be with her 01/04 (8) Hyperlipidemia Comment: - Cont Simvastatin (9) GERD (gastroesophageal reflux disease) Comment: - Cont omeprazole - Currently asymptomatic (10) DVT prophylaxis Comment: - SQ heparin. Status and Disposition: Inpatient. Discharge home when medically stable as family refused MY Attending: Mihaela Borja
[2018-12-10] MEDS ORDERED: Magnesium Sulfate 2 GM IV* 2 GM/50 ML BAG IVPB ONE (13:08)
[2018-12-11] MEDS: Heparin VIAL(*) 5000 UNITS/ML VIAL (FIVE THOUSAND) SUBCUT SCH (05:29)
[2018-12-11] MEDS: Levothyroxine TAB* 50 MCG TAB PO SCH (05:30)
[2018-12-11 07:47] LABS: Albumin 2.7 g/dL (3.2-5.2); BUN/Creatinine Ratio 32.9 (8-20); Calcium 8.3 mg/dL (8.6-10.3); EGFR African American 92.4 (>60); EGFR Non-African American 76.3 (>60); Globulin 2.8 g/dL (2-4); Magnesium 1.7 mg/dL (1.9-2.7); Potassium 3.5 mmol/L (3.5-5.0); Total Bilirubin 0.5 mg/dL (0.2-1.0); Total Protein 5.5 g/dL (6.4-8.9)
[2018-12-11] MEDS ORDERED: Magnesium Sulfate IV* 3 GM in NS 0.9% 100 ML* 100 ML IVPB ONE (08:30)
[2018-12-11] MEDS: Atorvastatin* 20 MG TAB PO SCH (09:40)
[2018-12-11] MEDS: Pantoprazole TAB * 40 MG TAB PO SCH (09:40)
[2018-12-11 12:05] VITALS: BP 118/76
--- NOTE | 2018-12-11 16:15 | DS ---
CC: Dr. Naomi Ratliff * DISCHARGE SUMMARY: DATE OF ADMISSION: 12/08/18 DATE OF DISCHARGE: 12/11/18 PRIMARY CARE PROVIDER: Dr. Naomi Ratliff. MY ATTENDING WHILE IN THE HOSPITAL: Dr. Doug Thorne.* (DICTATED BY CÉSAR GREWAL) PRIMARY DISCHARGE DIAGNOSES: 1. Toxic metabolic encephalopathy due to decreased medication clearance. 2. Acute kidney injury secondary to dehydration. SECONDARY DISCHARGE DIAGNOSES: 1. Hypertension. 2. Hyperlipidemia. 3. Gastroesophageal reflux disease. 4. Hiatal hernia. 5. Neuropathy. 6. History of skin cancer. STUDIES DONE WHILE IN THE HOSPITAL: Chest x-ray from 12/08/18 read as no evidence for acute disease. Brain CT from 12/08/18 read as no traumatic intracranial abnormalities, age- related atrophy, and mild chronic vessel ischemic disease. Cervical spine CT from 12/08/18 read as no cervical spine traumatic abnormalities, mild multilevel cervical spondylopathy. MEDICATIONS AT DISCHARGE: 1. Omeprazole 40 mg p.o. daily. 2. Simvastatin 40 mg p.o. daily. 3. Permethrin 1 application topical as needed. 4. Lorazepam 1 mg at bedtime as needed. 5. Triamcinolone 1 application topical b.i.d. 6. Tylenol 650 mg p.o. q.6 hours as needed. 7. Levothyroxine 50 mcg p.o. daily. Medications discontinued at discharge: 1. Motrin 800 mg p.o. b.i.d. as needed. 2. Doxycycline 50 mg p.o. b.i.d. 3. Synthroid 75 mcg p.o. daily. 4. Gabapentin 300 mg p.o. four times a day. New medications at discharge: 1. Tylenol. 2. Synthroid. HOSPITAL COURSE: This is a brief summary of the patient's presentation. For more details, please see the history and physical from CÉSAR Acevedo, on 12/08/18. In brief, the patient is an 83-year-old female with past medical history significant for the above, who presented to the emergency department with several days of decreased oral intake, confusion, ataxia with falls, and diarrhea with abdominal pain. The patient is having normal bowel movements and has no melena or hematochezia. The patient is generally very active. The patient also had diarrhea before coming in. The patient was found to have acute kidney injury with acidosis. The patient was admitted to the hospital and started on normal saline. The patient's renal function improved, but her acidosis worsened. The patient's fluids were switched to lactated Ringer's and her acidosis again improved. The patient initially was recommended to go to rehab by Physical Therapy and Occupational Therapy due to confusion and unsteadiness on her feet; however, these improved throughout her hospitalization. The patient had pyuria, but only a small amount of E. coli in her urine likely indicative of urinary tract infection. The patient continued to improve throughout her hospitalization with her lorazepam and gabapentin ____ _. The patient's creatinine on her day of discharge was 0.73. The patient on admission had a slightly elevated globulin and as above a significant acidosis with a low potassium as well. The patient's potassium increased without supplementation. The patient had decreased TSH with a normal T4 and her Synthroid was decreased. The patient was stable and amenable for discharge on 12/11/18 to home with 24x7 care with her daughter and visiting nurse services. PHYSICAL EXAM ON THE DAY OF DISCHARGE: General: The patient is an 83-year-old female, who appears stated age and sitting comfortably in bed, in no acute distress. Vital Signs: At the time of evaluation, temperature 97.6, pulse rate 80, respiratory rate 18, oxygen saturation 100% on room air, blood pressure 118/76. HEENT: Head normocephalic, atraumatic. Sclerae anicteric. No conjunctival injection. Nasal mucosa moist. Oral mucosa moist. No pharyngeal erythema, discharge, or exudate. Neck: Supple, nontender. No lymphadenopathy. No carotid bruits auscultated. No JVD. Cardiac: Regular rate and rhythm. No clicks, murmurs, gallops, or rubs. Pulses are 2+ in the bilateral dorsalis pedis, posterior tibialis, and radial areas. Respiratory: Clear to auscultation bilaterally. No wheezes, rales, or rhonchi. Good air exchange bilaterally. Abdomen: Soft, nontender, nondistended. Bowel sounds present and normoactive in all 4 quadrants. No hepatosplenomegaly. No abdominal bruits auscultated. No hepatojugular reflux. Genitourinary: No suprapubic or CVA tenderness. Skin: Clean, dry, and intact. No rash. Neuro: Cranial nerves II through XII grossly intact. No focal deficits. Alert and oriented x3. Psychiatric: Pleasant and cooperative. DISCHARGE PLAN: The patient will be discharged to home. The patient has 24- hour care from her daughter and will also have visiting nurse services. The family is working on getting a live-in home health aide. The patient's gabapentin at this time will be discontinued as while she was in the hospital, the patient noticed no difference with it being gone and it was likely due to the accumulation of this medication with acute kidney injury the patient was acutely confused. It was discussed with the patient and her family that she should be encouraged to have oral intake particularly fluids. The patient had no issues with nausea, vomiting, or diarrhea while she was in the hospital. The patient should have a repeat TSH drawn in 3 months with a decrease in her Synthroid dosing. The patient has a low albumin/prealbumin. The patient's oral intake should be encouraged. However, low albumin/prealbumin, elevated globulin, elevated alkaline phosphatase, and metabolic acidosis raise the possibility of myeloma. If the patient continues to be significantly acidotic, repeat BMP should be performed in 1 week and SPEP and UPEP should be considered. However, the more likely explanation for the patient's laboratory abnormalities was prerenal acute kidney injury. The patient should have a regular unrestricted diet with encouragement of p.o. intake. The patient should engage in activity as tolerated, working with PT and OT to restore functional status. TIME SPENT: Approximately 60 minutes was spent on the discharge of this patient , 30 of which was spent [id number] with the patient obtaining history and physical and discussing treatment plan. CÉSAR GREWAL [id number]/[facility] #: [id number] SHREE
== END 2018-12-11 14:30 | disposition home health service (06) | DRG 682 ==
LOC: ED 17:20 → MED 20:28
PROVIDERS: ADMIT Pediatrics; ATTEND Internal Medicine
DX: N17.9 Acute kidney failure, unspecified (principal); G92 Toxic encephalopathy; E87.2 Acidosis; N39.0 Urinary tract infection, site not specified; E86.0 Dehydration; E86.1 Hypovolemia; E78.5 Hyperlipidemia, unspecified; E03.9 Hypothyroidism, unspecified; K21.9 Gastro-esophageal reflux disease without esophagitis; T50.995A Adverse effect of other drugs, medicaments and biological substances, initial encounter; K44.9 Diaphragmatic hernia without obstruction or gangrene; G62.9 Polyneuropathy, unspecified; R29.6 Repeated falls; B96.20 Unspecified Escherichia coli [E. coli] as the cause of diseases classified elsewhere; M48.8X2 Other specified spondylopathies, cervical region; R19.7 Diarrhea, unspecified; I10 Essential (primary) hypertension; F41.9 Anxiety disorder, unspecified; F32.9 Major depressive disorder, single episode, unspecified; M15.9 Polyosteoarthritis, unspecified; Z98.42 Cataract extraction status, left eye; Z85.828 Personal history of other malignant neoplasm of skin; Y92.9 Unspecified place or not applicable; Z98.41 Cataract extraction status, right eye; Z90.710 Acquired absence of both cervix and uterus; Z80.1 Family history of malignant neoplasm of trachea, bronchus and lung; Z80.8 Family history of malignant neoplasm of other organs or systems
CPT/HCPCS: 36415; 70450; 71045; 72125; 80053; 80320; 81003; 81015; 82272; 82570; 83605; 83735; 84134; 84300; 84439; 84443; 84484; 85025; 85610; 85730; 87040; 87077; 87086; 87186; 99284; A9270-GY; G0480; G8978-GP-CK; G8979-GP-CI; G8987-GO-CJ; G8988-GO-CI; J0696; J1644; J3475

== ENCOUNTER 2019-01-04 19:42 | Inpatient (IN) | payer MEDICARE ==
--- NOTE | 2019-01-04 20:15 | ED ---
Complex/Multi-Sys Presentation - HPI Summary HPI Summary: This patient is an 83 year old F presenting to [facility] accompanied by with a chief complaint of weakness that began approximately 2 weeks ago. The patient rates the pain 0/10 in severity. Symptoms aggravated by nothing. Symptoms alleviated by nothing. Patient reports fatigue, sores on back, vomiting , SOB, and decreased memory. Patient denies abd pain. Patient states she was admitted to the hospital for these symptoms; she reports her symptoms had improved by the time of her discharge. - History Of Current Complaint Chief Complaint: EDNauseaVomitDiarrh Time Seen by Provider: 01/04/19 20:05 Hx Obtained From: Patient Onset/Duration: Sudden Onset, Lasting Weeks, Still Present Timing: Constant Severity Currently: Mild Severity Initially: Mild Aggravating Factor(s): Nothing Alleviating Factor(s): Nothing Associated Signs And Symptoms: Positive: Other - Positive fatigue, sores on back , vomiting, SOB, and decreased memory. Negative abd pain. - Allergies/Home Medications Allergies/Adverse Reactions: Allergies Allergy/AdvReac Type Severity Reaction Status Date / Time iodine Allergy Unknown Verified 01/04/19 22:15 Reaction Details Home Medications: Home Medications Gabapentin 600 mg PO BID 01/04/19 [History Confirmed 01/04/19] Magnesium Oxide TAB* [MagOx 400 TAB*] 400 mg PO BID 01/04/19 [History Confirmed 01/04/19] PMH/Surg Hx/FS Hx/Imm Hx Previously Healthy: No Endocrine/Hematology History: Reports: Hx Thyroid Disease - ON MEDS Cardiovascular History: Reports: Hx Hypertension - NO MEDS Denies: Hx Pacemaker/ICD, Other Cardiovascular Problems/Disorders GI History: Reports: Hx Gastroesophageal Reflux Disease, Hx Hiatal Hernia Musculoskeletal History: Reports: Hx Arthritis - WRIST AND FEET, LEGS AND BACK, Hx Bursitis Sensory History: Reports: Hx Cataracts - HAS HAD CATARACT SURGERY, Hx Contacts or Glasses - not with pt Denies: Hx Hearing Aid Opthamlomology History: Reports: Hx Cataracts - HAS HAD CATARACT SURGERY, Hx Contacts or Glasses - not with pt Neurological History: Denies: Other Neuro Impairments/Disorders Psychiatric History: Reports: Hx Anxiety - ON MEDS, Hx Depression - SEVERAL TIMES OVER THE YEARS, Hx Panic Disorder - Cancer History Cancer Type, Location and Year: Basal - Surgical History Surgery Procedure, Year, and Place: HYSTERECTOMY, , [facility]. GALLBLADDER, , [facility]. EMILIA CATARACTS, [facility], 2011. 1990S, EMILIA WRISTS, RIGHT 3 TIMES, [facility] - 4TH WRIST SURGERY NOW WITH PLATE. ABD SURGERY (ADIPOSE TISSUE REMOVAL) AND EMILIA BREAST REDUCTION, , [facility]. 6-7 SKIN CANCERS REMOVED. Marnie Hx Anesthesia Reactions: No Infectious Disease History: No Infectious Disease History: Reports: History Other Infectious Disease - shingles Denies: Traveled Outside the [place] in Last 30 Days - Family History Known Family History: Negative: Cardiac Disease, Hypertension, Diabetes - Social History Occupation: Retired Lives: With Family Alcohol Use: None Hx Substance Use: No Substance Use Type: Reports: None Hx Tobacco Use: No Smoking Status (MU): Never Smoked Tobacco Have You Smoked in the Last Year: No Review of Systems Positive: Fatigue Positive: Shortness Of Breath Positive: Vomiting. Negative: Abdominal Pain Positive: Other - Positive sores on back Neurological: Other - Positive decreased memory Positive: Weakness All Other Systems Reviewed And Are Negative: Yes Physical Exam - Summary Physical Exam Summary: Appearance: Elderly, Well-appearing, Well-nourished, lying in bed comfortably Skin: Warm, dry, no obvious rash Eyes: sclera anicteric, no conjunctival pallor ENT: mucous membranes somewhat dry, pharynx appears normal Neck: Supple, nontender Respiratory: Clear to auscultation, no signs of respiratory distress Cardiovascular: Normal S1, S2. No murmurs. Mildly elevated pulse, somewhat low BP in triage. Abdomen: Soft, nontender, normal active bowel sounds present Musculoskeletal: Normal, Strength/ROM Intact Neurological: A&Ox3, awake and alert, mentation is normal, speech is fluent and appropriate Psychiatric: affect is normal, does not appear anxious or depressed Triage Information Reviewed: Yes Vital Signs On Initial Exam: Initial Vitals Temp Pulse Resp BP Pulse Ox 97 F 104 20 91/67 97 01/04/19 19:46 01/04/19 19:46 01/04/19 19:46 01/04/19 19:46 01/04/19 19:46 Vital Signs Reviewed: Yes Diagnostics - Vital Signs Vital Signs Temp Pulse Resp BP Pulse Ox 01/04/19 19:46 97 F 104 20 91/67 97 - Laboratory Result Diagrams: 01/04/19 21:05 01/04/19 21:05 Lab Statement: Any lab studies that have been ordered have been reviewed, and results considered in the medical decision making process. - CT CT Abdomen and Pelvis CT Interpretation Completed By: Radiologist Summary of CT Findings: CT abdomen and pelvis reveals, per radiologist, 1. Several pulmonary nodules located in the lung bases. Some of these were noted on the prior study of 11/11/2018. A prominent pulmonary nodule located in the left lung base above the diaphragm is not seen on the current study. There are other subpleural nodules. For patients at low risk (minimal or absent history of smoking and of other known risk factors), no routine follow-up is indicated. For patients at high risk (history of smoking or of other known risk factors), consider optional CT at 12 months. (PatricMahoez, et al., Fleischner Society, 2017) . 2. Prominent lymph nodes located around the abdominal aorta and inferior vena cava. This has developed since the prior study of 11/11/2018. This may represent reactive adenopathy. Cannot exclude the present of an occult neoplasm. Recommend followup CT scan in 6 months to a year. ED physician has reviewed this radiology report. Complex Multi-Symp Course/Dx Course Of Treatment: This patient is an 83 year old F presenting to [facility] accompanied by with a chief complaint of weakness that began approximately 2 weeks ago. Physical Exam Findings: Elderly female lying comfortably in the stretcher. Mildly elevated pulse, somewhat low BP in triage, elderly, mucous membranes are somewhat dry. CT abdomen and pelvis reveals, per radiologist, 1. Several pulmonary nodules located in the lung bases. Some of these were noted on the prior study of 11/11/2018. A prominent pulmonary nodule located in the left lung base above the diaphragm is not seen on the current study. There are other subpleural nodules. For patients at low risk (minimal or absent history of smoking and of other known risk factors), no routine follow- up is indicated. For patients at high risk (history of smoking or of other known risk factors), consider optional CT at 12 months. (Piedad et al., Fleischner Society, 2017). 2. Prominent lymph nodes located around the abdominal aorta and inferior vena cava. This has developed since the prior study of 11/11/2018. This may represent reactive adenopathy. Cannot exclude the present of an occult neoplasm. Recommend followup CT scan in 6 months to a year. In the ED course the patient was given fluids. Consult with Dr. Cartagena ( hospitalist) at 0200. She agrees to admit the pt for further evaluation. The patient is agreeable with this plan. - Diagnoses Provider Diagnoses: Weakness, Dehydration - Physician Notifications Discussed Care Of Patient With: Bhumika Cartagena Time Discussed With Above Provider: 02:00 Instructed by Provider To: Other - Consult with Dr. Cartagena (hospitalist) at 0200. She agrees to admit the pt for further evaluation. Discharge - Sign-Out/Discharge Documenting (check all that apply): Patient Departure - Admit to [facility] Patient Received Moderate/Deep Sedation with Procedure: No - Discharge Plan Condition: Stable Disposition: ADMITTED TO [facility] Referrals: Naomi Ratliff MD [Primary Care Provider] - - Billing Disposition and Condition Condition: STABLE Disposition: Admitted to [facility] - Attestation Statements Document Initiated by Janetteibe: Yes Documenting Scribe: Flores Somers Provider For Whom Scribe is Documenting (Include Credential): Dr. Reed Maher MD Scribe Attestation: IFlores scribed for Dr. Reed Maher MD on 01/05/19 at 0354. Scribe Documentation Reviewed: Yes Provider Attestation: The documentation as recorded by the Flores noriega accurately reflects the service I personally performed and the decisions made by me, Dr. Reed Maher MD Status of Scribe Document: Viewed
[2019-01-04] MEDS ORDERED: NS 0.9% 1000 ML** 2,000 ML IV ONE (20:16)
[2019-01-04 21:17] LABS: ABS Basophils 0.1 10^3/ul (0-0.2); ABS Eosinophils 0.6 10^3/ul (0-0.6); ABS Lymphocytes 1.4 10^3/ul (1.0-4.8); ABS Neutrophils 6.4 10^3/ul (1.5-7.7); ABS Nucleated RBC 0 10^3/ul; Eosinophil % 6.2 %; Hematocrit 33 % (33-41); Hemoglobin 10.8 g/dL (12.0-16.0); Lymphocyte % 14.5 %; Mean Corpuscular HGB Conc 33 g/dL (31-36); Mean Corpuscular Hemoglobin 29 pg (27-31); Mean Corpuscular Volume 89 fL (80-97); Mean Platelet Volume 6.6 fL (7.4-10.4); Nucleated Red Blood Cells % 0; Platelet Count 290 10^3/uL (150-450); Red Blood Count 3.67 10^6 /uL (3.70-4.87); Red Cell Distribution Width 17 % (10.5-15); White Blood Count 9.4 10^3/uL (3.5-10.8)
[2019-01-04 21:33] LABS: Albumin 2.7 g/dL (3.2-5.2); BUN/Creatinine Ratio 18.4 (8-20); C Reactive Protein 123.65 mg/L (<8.01); Calcium 7.9 mg/dL (8.6-10.3); EGFR African American 65.7 (>60); EGFR Non-African American 54.3 (>60); Globulin 2.6 g/dL (2-4); Magnesium 1.7 mg/dL (1.9-2.7); Total Bilirubin 0.6 mg/dL (0.2-1.0); Total Protein 5.3 g/dL (6.4-8.9)
[2019-01-05 07:23] LABS: TSH (Thyroid Stimulating Horm) 3.86 mcIU/mL (0.34-5.60)
[2019-01-05 07:25] LABS: Carcinoembryonic Antigen 6.2 ng/mL (0.1-5.0)
[2019-01-05 07:30] LABS: Ferritin 875.7 ng/mL (11-307)
[2019-01-05 07:34] LABS: Folate 3.93 ng/mL (>3.99)
[2019-01-05] MEDS ORDERED: Omeprazole CAP (NF) 20 MG CAP.DR PO SCH (09:00)
[2019-01-05] MEDS: NS 0.9% 1000 ML** 1,000 ML IV SCH ×2 (09:18→19:55)
[2019-01-05] MEDS: Ondansetron INJ* 2 MG/ML VIAL IV SCH ×5 (09:19→23:19)
[2019-01-05] MEDS: Atorvastatin* 20 MG TAB PO SCH (09:34)
[2019-01-05] MEDS: Enoxaparin(*) 40 MG/0.4 ML SYR SUBCUT SCH (09:34)
[2019-01-05] MEDS: Magnesium Oxide TAB* 400 MG PO SCH ×2 (09:35→19:54)
[2019-01-05] MEDS: Gabapentin CAP(*) 300 MG PO SCH ×2 (09:35→19:54)
[2019-01-05] MEDS: Potassium Chloride LIQUID* 20 MEQ PACKET PO SCH (09:37)
[2019-01-05] MEDS: Pantoprazole TAB * 40 MG TAB PO SCH (09:37)
[2019-01-05] MEDS: Hydrocortisone 1% CREAM* 30 GM TUBE TOPICAL SCH ×2 (09:43→19:55)
--- NOTE | 2019-01-05 12:58 | HP ---
HISTORY AND PHYSICAL: DATE OF ADMISSION: 01/05/19 CHIEF COMPLAINT: Nausea, weakness, and altered mental status. PRIMARY CARE PROVIDER: Dr. Naomi Ratliff. PROFESSOR/NURSE ANESTHETIST: Trev Martin, patient's son. CODE STATUS: Full. History of present illness is obtained from family and review of chart and from patient though patient is a very poor historian. HISTORY OF PRESENT ILLNESS: This is an 83-year-old female with a past medical history of GERD, hyperlipidemia, hypothyroidism, neuropathy, and recurrent skin cancer, nonmelanoma, per patient, who presents to the emergency room with her children today for the second time in 1 month for weakness, nausea, and decreased oral intake. Patient's son reports that over the last 2-1/2 to 3 months, patient has had a decline in her health, notably decreased oral intake with patient stating that she gets nauseous and wants to throw up every time she eats. Patient's son says that they have to frequently encourage her to drink in that she easily gets dehydrated and as a result gets very weak and spends a lot of time sleeping in the bed. Her children brought her in for this earlier in the month and she was found to have a UTI. She was discharged to home with 24-hour care with her daughter caring for her, although both the son and the daughter feel that her care needs are now overwhelming the home situation and that her health status has declined. Also, they said that she has had new altered mental status and easily confused and needs frequent redirection, which has been going on for the past week or so. They said that she had always had perhaps some difficulty with specifics in memory but never problems with cue alteration, they deny any pepe obtundation or waxing and waning or changes in day and night pattern, although they do say that she sleeps most of the day. At her baseline, earlier the son and daughter say that patient is typically very active and used to live alone unassisted and completed all her IADLs and ADLs independently. She basically has these symptoms in about the end of October. EMERGENCY ROOM COURSE: Patient's vital signs on arrival are 91/67, temperature 97, pulse rate 98, respiratory rate 18, saturating 97% on room air. Laboratory data notable for hemoglobin of 10.8, potassium of 3, elevated anion gap at 16, hypocalcemia at 7.9, and elevated alkaline phosphatase to 150, elevated CRP at 123, and low albumin at 2.7. Imaging was done, which included CT of the abdomen and pelvis, which showed several pulmonary nodules located in the lung bases and subpleural nodules, looking largely unchanged in appearance from prior CT scan as well as prominent lymph nodes around the abdominal aorta and inferior vena cava. This is a new finding since the prior study done on 11/11/18 that is concerning for reactive adenopathy. Because of patient's weakness and inability to be cared for in the home and persistent nausea and poor p.o. intake, the hospitalist team was asked to evaluate patient for admission for further treatment and workup. PAST MEDICAL HISTORY: Hyperlipidemia, hypothyroidism, GERD, hiatal hernia, neuropathy, and history of skin cancer. PAST SURGICAL HISTORY: Cholecystectomy, hysterectomy, cataracts, bilateral wrist surgery, abdominal surgery, bilateral breast reduction, history of frequent skin cancer what sounds like actinic keratosis removal. MEDICATIONS: 1. Lorazepam 1 mg p.o. daily. 2. Omeprazole 40 mg p.o. daily. 3. Levothyroxine 75 mcg p.o. q.a.m. 4. Simvastatin 40 mg p.o. daily. 5. Gabapentin 300 mg p.o. four times a day. ALLERGIES: No known drug allergies. FAMILY HISTORY: Patient states that there is extensive cancer history throughout her family, lung, skin, and brain cancer. SOCIAL HISTORY: Patient is retired and currently living with her daughter for the last month and used to live alone. She is a lifetime nonsmoker. She does not use alcohol, she has never used illicit's. REVIEW OF SYSTEMS: Review of systems was completed. Constitutional: Negative for fevers or chills. Positive for fatigue. HEENT: Denies vision changes or headaches. Some difficulty swallowing. Cardiovascular: Negative for chest pain, palpitations. Respiratory: Negative for shortness of breath, cough. GI: Positive for nausea and vomiting. No pepe abdominal pain. Denies constipation or diarrhea. : Denies dysuria or hematuria. Musculoskeletal: Denies myalgias or arthralgias. Skin: Does complain of frequent itching and scaly frequent rashes and dermitis. Neurologic: Negative for focal weakness. Positive for confusion. Psychiatric: Negative for depression, positive for anxiety. Endocrine: Negative for polyuria, polydipsia. Heme: Negative for easy bruising or bleeding. PHYSICAL EXAMINATION GENERAL: This is a frail woman in no acute distress, lying up in bed, she is A and O x2, oriented to herself and place and not time. VITAL SIGNS: At the time of physical exam, blood pressure is 114/79, heart rate is 93, oxygen saturation is 98% on room air. HEENT: Shows dry mucous membranes. Pupils are equal and reactive. Extraocular muscles are intact, although she is difficult to complete the exam. NECK: Supple with no supraclavicular or cervical lymphadenopathy. LUNGS: Clear to auscultation bilaterally. CARDIAC: Heart has regular rate and rhythm with no murmurs, rubs or gallops. ABDOMEN: Belly is soft, nontender, nondistended. Scaphoid abdomen. MUSCULOSKELETAL: Moves all 4 extremities spontaneously, no edema. 2+ pulses and bilateral DPs. NEUROLOGIC: Cranial nerves II through XII are intact. Patient is A and O x2. She is easily agitated and has difficulty following commands or to task. Her sensation is intact throughout. She has no focal neurological deficits. SKIN: She has diffuse maculopapular areas of excoriation across both forearms, but otherwise clean, dry, and intact. DIAGNOSTIC STUDIES/LAB DATA: White blood cell count 9.4, hemoglobin 10.8, hematocrit 33, platelets 290. Sodium 136, potassium 3, chloride 98, carbon dioxide 22, anion gap 16, BUN 18, creatinine 0.98, glucose 79, lactic acid 1.4, calcium 7.9. Alkaline phosphatase 150, AST 31, ALT 21. CRP is elevated at 123. Total protein 5.[address] abdomen and pelvis completed, which shows new reactive adenopathy at abdominal aorta and inferior vena cava that is new since prior study in November 2018 and stable pulmonary nodules located in the lung bases. Imaging and labs reviewed by myself. ASSESSMENT AND PLAN: This is an 83-year-old female with past medical history of gastroesophageal reflux disease and hypothyroidism, who is formerly independent until early October 2018, who has had precipitous decline in health with poor p.o. intake, nausea, weakness, and overall clinical presentation concerning for failure to thrive. Furthermore, she presents to the emergency room today with new altered mental status and reactive adenopathy with elevated alkaline phosphatase and possible concern for occult malignancy as the unifying diagnosis for the total of her symptoms. 1. Nausea and weakness with poor p.o. intake. Again, all this is in the setting of new reactive lymphadenopathy. We will hydrate patient with normal saline. We will replete electrolytes as needed. We will consult GI to consider if EGD is appropriate in this setting. We will add tumor markers given no clear mass seen on CT abdomen and pelvis though high suspicion. 2. Elevated alkaline phosphatase. Again, in the above setting, no clear pathology seen on CT abdomen and pelvis. We will add GGT to determine source. 3. Altered mental status. Patient has new altered mental status A and O x2 and is easily agitated, which her family says this is an acute deviation from her prior baseline earlier in the year. I have added vitamin B12, TSH, and folate and a social work consult. We will also hold patient's p.r.n. Lorazepam at this time given it is not helping in her altered mental status. 4. Anion gap. This most likely in the setting of ketosis with poor p.o. intake. 5. Gastroesophageal reflux disease. We will offer PPI. 6. Hypothyroidism. We will give home levothyroxine. 7. Hypokalemia. We will replete potassium for goal greater than 3.5. 8. Neuropathy. We will continue home gabapentin. 9. Dermatitis. Patient has itchy, scaly rash throughout her body, which she reports has been going on since the beginning of her symptoms. We will offer hydroxyzine and hydrocortisone, consider biopsy or reaching out to her outpatient director of assisted living if there is any concern that this is her overall presentation. 10. DVT prophylaxis. Patient will be placed on Lovenox. 11. FEN. Patient will be placed on clear liquid diet. 12. Disposition: Patient is stable for admission to medical floor [address] [place] [address]. 13. Code status: Full. Long discussion with son and patient about code measures including CPR, intubation, and "life support" and family is incredibly ambivalent on our discussion and ultimately opts for full code while her son and daughter continued to discuss her overall prognosis and care as more data is obtained. TIME SPENT: Thirty-five minutes was spent in the planning of this admission with over half of that spent directly at the bedside providing direct patient care. Plan of care was discussed with patient's son, who is agreeable to admission and continued workup for her ongoing symptoms. Furthermore, he expresses to me his concerns for unsafe home environment and would like Social Work consult placed, which was generated for him. [id number]/CPS #: [id number] SHREE
[2019-01-05] MEDS: hydrOXYzine HCL TAB* 25 MG PO PRN ×2 (13:00→19:54)
[2019-01-06] MEDS: hydrOXYzine HCL TAB* 25 MG PO PRN ×4 (01:48→21:15)
[2019-01-06] MEDS: Ondansetron INJ* 2 MG/ML VIAL IV SCH ×6 (03:46→23:22)
[2019-01-06] MEDS: Levothyroxine TAB* 50 MCG TAB PO SCH (05:48)
[2019-01-06] MEDS: Enoxaparin(*) 40 MG/0.4 ML SYR SUBCUT SCH (05:48)
[2019-01-06 06:26] LABS: ABS Basophils 0.1 10^3/ul (0-0.2); ABS Eosinophils 1.2 10^3/ul (0-0.6); ABS Lymphocytes 1.5 10^3/ul (1.0-4.8); ABS Monocytes 0.8 10^3/ul (0-0.8); ABS Neutrophils 4.9 10^3/ul (1.5-7.7); ABS Nucleated RBC 0 10^3/ul; Eosinophil % 13.9 %; Hematocrit 30 % (33-41); Lymphocyte % 17.6 %; Mean Corpuscular HGB Conc 34 g/dL (31-36); Mean Corpuscular Hemoglobin 30 pg (27-31); Mean Corpuscular Volume 89 fL (80-97); Mean Platelet Volume 6.5 fL (7.4-10.4); Nucleated Red Blood Cells % 0; Platelet Count 228 10^3/uL (150-450); Red Blood Count 3.35 10^6 /uL (3.70-4.87); Red Cell Distribution Width 17 % (10.5-15); White Blood Count 8.5 10^3/uL (3.5-10.8)
[2019-01-06 06:56] LABS: BUN/Creatinine Ratio 13.2 (8-20); Calcium 7.3 mg/dL (8.6-10.3); EGFR African American 88.2 (>60); EGFR Non-African American 72.9 (>60); Potassium 3.3 mmol/L (3.5-5.0)
[2019-01-06] MEDS: Gabapentin CAP(*) 300 MG PO SCH ×2 (09:12→21:14)
[2019-01-06] MEDS: Atorvastatin* 20 MG TAB PO SCH (09:12)
[2019-01-06] MEDS: Pantoprazole TAB * 40 MG TAB PO SCH (09:13)
[2019-01-06] MEDS: Magnesium Oxide TAB* 400 MG PO SCH ×2 (09:13→21:15)
[2019-01-06] MEDS: Polyethylene Glycol 3350* 17 GM PACKET PO SCH ×2 (09:14→21:14)
[2019-01-06] MEDS: Hydrocortisone 1% CREAM* 30 GM TUBE TOPICAL SCH ×2 (09:14→21:16)
[2019-01-06] MEDS: Potassium Chloride LIQUID* 20 MEQ PACKET PO SCH (09:19)
[2019-01-06 09:24] LABS: Urine Appearance Clear; Urine Bacteria Absent (Absent); Urine Bilirubin Negative (Negative); Urine Blood Negative (Negative); Urine Color Yellow; Urine Glucose Negative (Negative); Urine Ketones 1+ (Negative); Urine Nitrite Negative (Negative); Urine Protein Negative (Negative); Urine Red Blood Cell 1+(3-5/hpf) (Absent); Urine Specific Gravity 1.016 (1.010-1.030); Urine Squamous Epithelial Cell Present (Absent); Urine Urobilinogen Negative (Negative); Urine White Blood Cell 3+(>20/hpf) (Absent)
[2019-01-06] MEDS ORDERED: Metoprolol Tartrate IV* 1 MG/ML 5 ML VIAL ONE (11:48)
--- NOTE | 2019-01-06 12:28 | PN ---
Hospitalist Progress Note Date of Service: 01/06/19 I was called for a HR of 180 found on routine vital signs. Ms. Martin was having no complaints at that time. I came to see her and we connected her to the EKG machine and she was in a regular, narrow complex tachycardia at 180. She had no palpitations, chest pain, shortness of breath, lightheadedness, or any other symptoms. Initial BP was 90s/50s. Valsalva maneuver was attempted with no success. 1L NS was hung wide open. A subsequent BP was unable to be obtained even manually, so the CAT team was called in preparation for possible cardioversion, however her heart rate converted spontaneously to sinus tachycardia at 108 and a manual BP was 102/58. She remained asymptomatic. Will transfer to and check TTE now.
--- NOTE | 2019-01-06 12:36 | PN ---
Hospitalist Progress Note Date of Service: 01/06/19 Concepcion (patient's daughter) called the floor and asked that I call her and update her--Lenka agreed with this. I called Concepcion and updated her that an egd is planned and and echo, and the events of this morning. She explains that she and her brother Trev do not talk, so I called Trev separately updated him.
[2019-01-06] MEDS: NS 0.9% 1000 ML** 1,000 ML IV SCH ×2 (14:16→22:51)
[2019-01-06] MEDS ORDERED: LORazepam TAB(*) 1 MG PO PRN (15:10)
--- NOTE | 2019-01-06 15:45 | PN ---
Subjective Date of Service: 01/06/19 Interval History: Lenka is admittedly depressed--she has no specific complaints other than being in the hospital. She denies pain, nausea, vomiting, diarrhea, constipation. See my progress notes from earlier today for the events of the morning. RN reported that she found several loose pills in the patient's bed this morning and they were identified as lorazepam and tylenol pm. Lenka says she had not taken any of them. Objective Active Medications: Acetaminophen (Tylenol Tab*) 650 mg PO Q6H PRN PRN Reason: PAIN Atorvastatin Calcium (Lipitor*) 20 mg PO DAILY [facility] Last Admin: 01/06/19 09:12 Dose: 20 mg Enoxaparin Sodium (Lovenox(*)) 40 mg SUBCUT Q24H [facility] Last Admin: 01/06/19 05:48 Dose: 40 mg Gabapentin (Neurontin Cap(*)) 600 mg PO BID [facility] Last Admin: 01/06/19 09:12 Dose: Not Given Hydrocortisone (Hytone Cream 1%*) 1 applic TOPICAL BID [facility] Last Admin: 01/06/19 09:14 Dose: 1 applic Hydroxyzine HCl (Atarax Tab*) 25 mg PO Q4H PRN PRN Reason: ANXIETY Last Admin: 01/06/19 14:16 Dose: 25 mg Sodium Chloride (Ns 0.9% 1000 Ml) 1,000 mls @ 150 mls/hr IV PER RATE [facility] Last Admin: 01/06/19 14:16 Dose: 150 mls/hr Levothyroxine Sodium (Synthroid Tab*) 50 mcg PO 0600 [facility] Last Admin: 01/06/19 05:48 Dose: 50 mcg Lorazepam (Ativan Tab(*)) 1 mg PO DAILY PRN PRN Reason: ANXIETY Magnesium Oxide (Magox 400 Tab*) 400 mg PO BID [facility] Last Admin: 01/06/19 09:13 Dose: 400 mg Ondansetron HCl (Zofran Inj*) 4 mg IV Q4H [facility] Last Admin: 01/06/19 14:30 Dose: Not Given Pantoprazole Sodium (Protonix Tab*) 40 mg PO DAILY [facility] Last Admin: 01/06/19 09:13 Dose: 40 mg Polyethylene Glycol/Electrolytes (Miralax*) 17 gm PO 0800,2100 [facility] Last Admin: 01/06/19 09:14 Dose: 17 gm Potassium Chloride (Klor-Con Liquid*) 20 meq PO DAILY [facility] Last Admin: 01/06/19 09:19 Dose: 20 meq Vital Signs - 8 hr 01/06/19 01/06/19 01/06/19 07:50 08:00 09:12 Temperature 98.3 F Pulse Rate 90 94 Respiratory 18 20 Rate Blood Pressure 102/54 (mmHg) O2 Sat by Pulse 92 Oximetry 01/06/19 01/06/19 01/06/19 09:15 11:29 12:54 Temperature 97.6 F 97.5 F Pulse Rate 176 67 Respiratory 18 18 16 Rate Blood Pressure 94/67 103/64 (mmHg) O2 Sat by Pulse 96 100 Oximetry Oxygen Devices in Use Now: None Appearance: elderly, thin, no distress Eyes: No Scleral Icterus Ears/Nose/Mouth/Throat: NL Teeth, Lips, Gums Neck: NL Appearance and Movements; NL JVP Respiratory: Symmetrical Chest Expansion and Respiratory Effort, Clear to Auscultation Cardiovascular: - - tachycardic Lymphatic: No Cervical Adenopathy Extremities: No Edema Skin: No Rash or Ulcers Neurological: Alert and Oriented x 3, - - withdrawn Result Diagrams: 01/06/19 06:07 01/06/19 06:07 Assess/Plan/Problems-Billing Assessment: This is an 83 year old lady with history of GERD, neuropathy, and nonmelanoma skin cancer who had had poor PO intake and declining functional status over hte past two months who was brought to the ED 01/05 because her family could not get her to eat. - Patient Problems (1) Lymphadenopathy, abdominal Current Visit: Yes Status: Acute Code(s): R59.0 - LOCALIZED ENLARGED LYMPH NODES SNOMED Code(s): 041138156 Comment: unclear significance reactive vs. malignant? Dr. Bruno consulted; plan for EGD (2) SVT (supraventricular tachycardia) Current Visit: Yes Status: Acute Code(s): I47.1 - SUPRAVENTRICULAR TACHYCARDIA SNOMED Code(s): 5331023 Comment: no history check TTE lytes okay check TSH (3) Hypothyroidism Current Visit: No Status: Acute Code(s): E03.9 - HYPOTHYROIDISM, UNSPECIFIED SNOMED Code(s): 60937907 Comment: levothyroxine dose just adjusted earlier this month (4) Weakness Current Visit: No Status: Acute Code(s): R53.1 - WEAKNESS SNOMED Code(s): 30705055 Comment: PT recommended MY at last visit but family declined Evaluated by PT again this morning, recommended MY again
[2019-01-06] MEDS: KCL 20 MEQ/100 ML IVPREMIX* 20 MEQ/100 ML BAG IV SCH ×2 (16:12→22:48)
--- NOTE | 2019-01-06 17:04 | ECHO ---
*[facility]* [place] [address] Fax #: [phone] Transthoracic Echocardiogram Patient: Mario, Height: 61 in / Lenka Mathis 154.9 cm : 1935 Weight: 140.7 lb / Study Date: 01/06/2019 64 kg Age: 83 BP: 94 / 67 Gender: F BMI/BSA: 26.6 kg/m^2 HR: 93 bpm / 1.63 m^2 *Sales Support Specialist: * Rufina Quach RDCS RN *Referring Physician: * Kasey Isbell *Reading Physician: * Ruslan Still MD Indications: Abnormal EKG. Supraventricular tachycardia. History: Risk factors: Dyslipidemia. Hypothroidism. Conclusions Summary: 1. Left ventricle: The cavity size is normal. Wall thickness is normal. Systolic function is at the lower limits of normal. The estimated ejection fraction is 50-55%. Wall motion is normal; there are no regional wall motion abnormalities. 2. Mitral valve: The annulus is mildly calcified. The leaflets are mildly thickened. There is trivial regurgitation. 3. Aortic valve: The findings are consistent with mild stenosis. There is no significant regurgitation. The mean systolic gradient is 7.0 mm Hg. 4. Tricuspid valve: There is trivial regurgitation. 5. Study data: No prior study is available for comparison. Study data: Transthoracic echocardiogram. Procedure: Transthoracic echocardiography was performed. Image quality was fair. Complete 2D, spectral Doppler, and color flow Doppler. Patient status: Inpatient. Patient room number: 439. No prior study is available for comparison. Rhythm: Normal sinus rhythm with PAC's. Findings Left ventricle: The cavity size is normal. Wall thickness is normal. Systolic function is at the lower limits of normal. The estimated ejection fraction is 50-55%. Wall motion is normal; there are no regional wall motion abnormalities. There is no consistent Doppler evidence of clinically significant diastolic dysfunction. Right ventricle: The cavity size is normal. Systolic function is normal. Left atrium: The atrium is normal in size. Right atrium: The atrium is normal in size. Mitral valve: The annulus is mildly calcified. The leaflets are mildly thickened. There is no evidence of stenosis. There is trivial regurgitation. Aortic valve: The annulus is mildly calcified. The valve is trileaflet. The leaflets are mildly thickened. The findings are consistent with mild stenosis. There is no significant regurgitation. The LVOT to aortic valve VTI ratio is 0.5. The valve area by the velocity-time integral method is 1.60 cm^2. The valve area index by the velocity-time integral method is 0.98 cm^2/m^2. The ratio of LVOT to aortic valve peak velocity is 0.59. The valve area by the peak velocity method is 1.80 cm^2. The valve area index by the peak velocity method is 1.1 cm^2/m^2. The ratio of LVOT to aortic valve mean velocity is 0.58. The valve area by the mean velocity method is 1.8 cm^2. The valve area index by the mean velocity method is 1.12 cm^2/m^2. The mean systolic gradient is 7.0 mm Hg. The peak systolic gradient is 11.0 mm Hg. Tricuspid valve: The valve is structurally normal. There is no evidence of stenosis. There is trivial regurgitation. Pulmonic valve: Not well visualized. There is no evidence of stenosis. There is no significant regurgitation. The peak systolic gradient is 2.0 mm Hg. Aorta: Aortic root: The aortic root is not dilated. Ascending aorta: The ascending aorta is not dilated. Aortic arch: The aortic arch is not dilated. Pericardium: There is no pericardial effusion. Pulmonary arteries: Not well visualized. Systemic veins: Inferior vena cava: The vessel is normal in size. The respirophasic diameter changes are in the normal range (>= 50%). Measurements Left ventricle Value Ref Right atrium Value Ref BRENDA, LAX (L) 3.6 cm 3.8 - 5.2 ML dim, ES, A4C 2.9 cm 2.6 - ESD, LAX 2.8 cm 2.2 - 3.5 4.4 PW, ED, LAX (H) 1.0 cm 0.6 - 0.9 SI dim, ES, A4C 4.8 cm 3.4 - FS (L) 23 % 27 - 45 5.3 E', lat stephen, TDI (L) 7.8 cm/sec >=10.0 SI dim/bsa, ES, 2.9 cm/m^2 1.9 - E/e', lat stephen, 8 A4C 3.1 TDI E', med stephen, TDI (L) 5.9 cm/sec >=7.0 Aortic valve Value Ref E/e', med stephen, 11 Stephen diam, ED 1.9 cm --- ----- TDI Peak v, S 1.65 m/sec -------- E', avg, TDI 6.9 cm/sec Mean v, S 1.14 m/sec --- ----- E/e', avg, TDI 10 <=14 VTI, S 34.4 cm -------- Mean grad, S 7.0 mm Hg -------- LVOT Value Ref Peak grad, S 11.0 mm Hg -------- Diam, S 2.00 cm GO, VTI 1.60 cm^2 -------- Area 3.1 cm^2 GO, Vmax 1.80 cm^2 -------- Peak paulette, S 0.97 m/sec Mean paulette, S 0.66 m/sec Mitral valve Value Ref VTI, S 17.2 cm Peak E 0.65 m/sec -------- Mean grad, S 2 mm Hg Peak A 0.79 m/sec -------- SV 54 ml Decel time 313 ms -------- Peak E/A ratio 0.8 -------- Ventricular septum Value Ref IVS, ED 0.9 cm 0.6 - 0.9 Aortic root Value Ref Root diam 3.1 cm <3.9 Right ventricle Value Ref BRENDA minor ax, 3.1 cm 1.9 - 3.5 Ascending aorta Value Ref A4C mid AAo AP diam, S 3.2 cm -------- Left atrium Value Ref Aortic arch Value Ref AP dim, ES 2.80 cm 2.70 - Arch diam 2.5 cm -------- 3.80 ML dim, A4C 3.0 cm Decending aorta Value Ref Vol/bsa, ES, 1-p 18 ml/m^2 11 - 40 Emmanuel peak paulette 0.59 m/sec -------- A4C Vol/bsa, ES, 1-p 17 ml/m^2 13 - 40 Inferior vena cava Value Ref A2C Diam 2.0 cm -------- Vol/bsa, ES, A/L 20 ml/m^2 16 - 34 Legend: (L) and (H) alyson values outside specified reference range. Prepared and electronically signed by Ruslan Still MD 01/06/2019 17:03
[2019-01-06] MEDS: Acetaminophen TAB* 325 MG PO PRN (23:14)
[2019-01-07] MEDS: Ondansetron INJ* 2 MG/ML VIAL IV SCH ×5 (04:45→20:29)
[2019-01-07] MEDS ORDERED: Haloperidol INJ IV/IM* 5 MG/ML AMP IM PRN (05:06)
[2019-01-07] MEDS: Levothyroxine TAB* 50 MCG TAB PO SCH (05:33)
[2019-01-07 06:48] LABS: ABS Basophils 0.1 10^3/ul (0-0.2); ABS Eosinophils 1.1 10^3/ul (0-0.6); ABS Lymphocytes 0.9 10^3/ul (1.0-4.8); ABS Monocytes 0.6 10^3/ul (0-0.8); ABS Neutrophils 4.9 10^3/ul (1.5-7.7); ABS Nucleated RBC 0 10^3/ul; Eosinophil % 14.4 %; Hematocrit 29 % (33-41); Hemoglobin 9.6 g/dL (12.0-16.0); Lymphocyte % 12.4 %; Mean Corpuscular HGB Conc 33 g/dL (31-36); Mean Corpuscular Hemoglobin 30 pg (27-31); Mean Corpuscular Volume 90 fL (80-97); Mean Platelet Volume 6.8 fL (7.4-10.4); Nucleated Red Blood Cells % 0.1; Platelet Count 229 10^3/uL (150-450); Red Blood Count 3.22 10^6 /uL (3.70-4.87); Red Cell Distribution Width 18 % (10.5-15); White Blood Count 7.6 10^3/uL (3.5-10.8)
[2019-01-07] MEDS: Enoxaparin(*) 40 MG/0.4 ML SYR SUBCUT SCH (06:49)
[2019-01-07 07:04] LABS: INR 1.2 (0.82-1.09)
[2019-01-07 07:05] LABS: Calcium 7.4 mg/dL (8.6-10.3); Magnesium 1.5 mg/dL (1.9-2.7); Potassium 3.7 mmol/L (3.5-5.0)
[2019-01-07 07:11] LABS: BUN/Creatinine Ratio 10.8 (8-20); C Reactive Protein 93.49 mg/L (<8.01); EGFR African American 90.9 (>60); EGFR Non-African American 75.1 (>60); Phosphorus 2.1 mg/dL (2.5-5.0)
[2019-01-07 07:25] LABS: TSH (Thyroid Stimulating Horm) 8.26 mcIU/mL (0.34-5.60)
[2019-01-07] MEDS: Polyethylene Glycol 3350* 17 GM PACKET PO SCH ×2 (09:07→20:29)
[2019-01-07] MEDS: Gabapentin CAP(*) 300 MG PO SCH ×3 (09:25→21:07)
[2019-01-07] MEDS: Magnesium Oxide TAB* 400 MG PO SCH ×2 (09:25→20:27)
[2019-01-07] MEDS: Hydrocortisone 1% CREAM* 30 GM TUBE TOPICAL SCH ×2 (09:31→20:29)
[2019-01-07] MEDS ORDERED: Magnesium Sulfate 2 GM IV* 2 GM/50 ML BAG IVPB ONE (11:10)
[2019-01-07] MEDS: Pantoprazole TAB * 40 MG TAB PO SCH (11:54)
[2019-01-07] MEDS: Atorvastatin* 20 MG TAB PO SCH (11:54)
[2019-01-07] MEDS: Potassium Chloride LIQUID* 20 MEQ PACKET PO SCH (11:54)
--- NOTE | 2019-01-07 15:36 | PN ---
Subjective Date of Service: 01/07/19 Interval History: Lenka received haldol at 5am this morning for agitation, scratching herself, and pulling her IVs out. She is sleepy this morning but awakens to voice and has no complaints. She says she has an appetite this morning but is NPO for a possible EGD. She has no pain. Objective Active Medications: Acetaminophen (Tylenol Tab*) 650 mg PO Q6H PRN PRN Reason: PAIN Last Admin: 01/06/19 23:14 Dose: 650 mg Atorvastatin Calcium (Lipitor*) 20 mg PO DAILY [facility] Last Admin: 01/07/19 11:54 Dose: Not Given Enoxaparin Sodium (Lovenox(*)) 40 mg SUBCUT Q24H [facility] Last Admin: 01/07/19 06:49 Dose: 40 mg Gabapentin (Neurontin Cap(*)) 600 mg PO BID [facility] Last Admin: 01/07/19 09:25 Dose: Not Given Haloperidol Lactate (Haldol Inj Iv/Im*) 5 mg IM Q6H PRN PRN Reason: AGITATION Last Admin: 01/07/19 05:18 Dose: 5 mg Hydrocortisone (Hytone Cream 1%*) 1 applic TOPICAL BID [facility] Last Admin: 01/07/19 09:31 Dose: 1 applic Hydroxyzine HCl (Atarax Tab*) 25 mg PO Q4H PRN PRN Reason: ANXIETY Last Admin: 01/06/19 21:15 Dose: 25 mg Sodium Chloride (Ns 0.9% 1000 Ml) 1,000 mls @ 150 mls/hr IV PER RATE [facility] Last Admin: 01/06/19 22:51 Dose: 150 mls/hr Levothyroxine Sodium (Synthroid Tab*) 50 mcg PO 0600 [facility] Last Admin: 01/07/19 05:33 Dose: Not Given Magnesium Oxide (Magox 400 Tab*) 400 mg PO BID [facility] Last Admin: 01/07/19 09:25 Dose: Not Given Ondansetron HCl (Zofran Inj*) 4 mg IV Q4H [facility] Last Admin: 01/07/19 11:54 Dose: Not Given Pantoprazole Sodium (Protonix Tab*) 40 mg PO DAILY [facility] Last Admin: 01/07/19 11:54 Dose: Not Given Polyethylene Glycol/Electrolytes (Miralax*) 17 gm PO 0800,2100 [facility] Last Admin: 01/07/19 09:07 Dose: Not Given Potassium Chloride (Klor-Con Liquid*) 20 meq PO DAILY [facility] Last Admin: 01/07/19 11:54 Dose: Not Given Vital Signs - 8 hr 01/07/19 01/07/19 01/07/19 07:52 08:00 11:07 Temperature 98.3 F 97.7 F Pulse Rate 85 89 Respiratory 22 12 20 Rate Blood Pressure 112/56 118/54 (mmHg) O2 Sat by Pulse 97 95 Oximetry 01/07/19 13:44 Temperature 97.6 F Pulse Rate 88 Respiratory 22 Rate Blood Pressure 100/58 (mmHg) O2 Sat by Pulse 92 Oximetry Oxygen Devices in Use Now: None Appearance: sleepy but arousable, elderly, no distress Eyes: No Scleral Icterus Ears/Nose/Mouth/Throat: NL Teeth, Lips, Gums Neck: NL Appearance and Movements; NL JVP Respiratory: Symmetrical Chest Expansion and Respiratory Effort, Clear to Auscultation Cardiovascular: NL Sounds; No Murmurs; No JVD, RRR Abdominal: NL Sounds; No Tenderness; No Distention Lymphatic: No Cervical Adenopathy Extremities: No Edema Skin: - - scattered excoriations on arms and legs Result Diagrams: 01/07/19 06:25 01/07/19 06:25 Microbiology and Other Data: Microbiology 01/06/19 09:00 Urine Culture - Final Urine Assess/Plan/Problems-Billing Assessment: This is an 83 year old lady with history of GERD, neuropathy, and nonmelanoma skin cancer who had had poor PO intake and declining functional status over hte past two months who was brought to the ED 01/05 because her family could not get her to eat. - Patient Problems (1) Anorexia Current Visit: Yes Status: Acute Code(s): R63.0 - ANOREXIA SNOMED Code(s) : 59012673 Comment: unclear etiology--patient does not provide revealing history general failure to thrive at home noted by her family (2) Lymphadenopathy, abdominal Current Visit: Yes Status: Acute Code(s): R59.0 - LOCALIZED ENLARGED LYMPH NODES SNOMED Code(s): 115476427 Comment: unclear significance reactive vs. malignant? Dr. Bruno consulted; plan for EGD today (3) SVT (supraventricular tachycardia) Current Visit: Yes Status: Acute Code(s): I47.1 - SUPRAVENTRICULAR TACHYCARDIA SNOMED Code(s): 1998304 Comment: episode occured yesterday and resolved spontaneously, no further tele events TTE okay lytes okay TSH elevated today but was mistakenly ordered, as she had a normal TSH two days ago--likely sicu thyroid (4) Hypothyroidism Current Visit: No Status: Acute Code(s): E03.9 - HYPOTHYROIDISM, UNSPECIFIED SNOMED Code(s): 74402378 Comment: levothyroxine dose just adjusted earlier this month (5) Weakness Current Visit: No Status: Acute Code(s): R53.1 - WEAKNESS SNOMED Code(s): 56558410 Comment: needs MY
[2019-01-07] MEDS: NS 0.9% 1000 ML** 1,000 ML IV SCH (15:59)
[2019-01-07] MEDS ORDERED: Midazolam* 1 MG/ML 10 ML VIAL (10 MG) ONE (16:16)
[2019-01-07] MEDS ORDERED: fentaNYL* 50 MCG/ML 2 ML VIAL (100 MCG VIAL) ONE (16:16)
[2019-01-07] MEDS: hydrOXYzine HCL TAB* 25 MG PO PRN (16:34)
--- NOTE | 2019-01-07 21:21 | PRO ---
CC: Dr. Naomi Ratliff; Dr. Kasey Isbell * DATE OF PROCEDURE: 01/07/19 - ROOM #[id number] PROCEDURE: EGD with biopsy. PRIMARY CARE PHYSICIAN: Naomi Ratliff MD. INPATIENT HOSPITALIST: Kasey Isbell MD. INDICATIONS: The patient was admitted with failure to thrive as well as decreased appetite. CT of the abdomen and pelvis demonstrated some abdominal lymphadenopathy of unclear etiology or significance. Upper endoscopy is recommended to evaluate for potential cause of abnormal imaging and symptoms. MEDICATIONS GIVEN: Midazolam 7 mg IV, Fentanyl 75 mcg IV. DESCRIPTION OF PROCEDURE: Full disclosure of risks was reviewed with the patient as detailed on the consent form. The patient was placed in the left lateral decubitus position and monitored with continuous pulse oximetry, capnography, interval blood pressure monitoring, and direct observation. A bite block was placed between the patient's teeth. An adult gastroscope was then inserted into the patient's mouth and advanced down the esophagus, into the stomach, and into the distal duodenum. Findings and interventions are described below. FINDINGS: Esophagus was a normal tubular structure without rings or strictures. No mass. GE junction was regular and occurred at 32 cm. The scope was then easily advanced into the stomach. The stomach was examined in the forward and retroflexed views. The gastric mucosa was diffusely erythematous. The gastric folds were markedly thickened. There was a 1 cm polyp seen in the proximal body along the greater curvature. There was a 1.5 cm polyp in the proximal body of the lesser curvature. These polyps were biopsied. Biopsies were obtained from the gastric body and gastric antrum for histologic evaluation. Biopsy was obtained from the antrum and sent for CLOtest. Scope was then advanced into the duodenum to at least the third portion. The duodenum was unremarkable in appearance. No erosions or ulcers. No mass. Biopsy obtained. Scope was then withdrawn from the patient. The patient tolerated the procedure well and was recovered in the GI recovery area. IMPRESSION: 1. Complete upper endoscopy to the distal duodenum. 2. Very thickened gastric folds. This endoscopic finding raises the question of Menetrier's disease, particularly given the patient's low albumin level. We will await path to determine if findings suggestive of Menetrier's such as foveolar hyperplasia are present. It is worth noting full-thickness biopsy occasionally needed to see these histologic changes. 3. Two gastric polyps, biopsied. Will need to discuss if the polyps should be removed at a later date depending on pathology and the patient's wishes. FOLLOWUP: 1. Await pathology. 2. Consider colonoscopy given failure to thrive and abdominal lymphadenopathy raising concern for possible occult malignancy. The patient is quite elderly and frail, so we would have to discuss with the patient and family if this is something that she would be interested in pursuing. Thank you very much for this consult. GI will continue to follow. [id number]/[facility] #: [id number] SH[facility]
[2019-01-08] MEDS: Ondansetron INJ* 2 MG/ML VIAL IV SCH ×7 (00:01→23:10)
[2019-01-08] MEDS: Acetaminophen TAB* 325 MG PO PRN ×2 (00:03→21:50)
[2019-01-08] MEDS: hydrOXYzine HCL TAB* 25 MG PO PRN ×5 (00:04→19:14)
[2019-01-08] MEDS: NS 0.9% 1000 ML** 1,000 ML IV SCH ×3 (02:28→19:17)
[2019-01-08] MEDS: Levothyroxine TAB* 50 MCG TAB PO SCH (04:46)
[2019-01-08] MEDS: Enoxaparin(*) 40 MG/0.4 ML SYR SUBCUT SCH (06:48)
[2019-01-08] MEDS: Gabapentin CAP(*) 300 MG PO SCH ×3 (09:38→21:51)
[2019-01-08] MEDS: Hydrocortisone 1% CREAM* 30 GM TUBE TOPICAL SCH ×2 (09:38→21:50)
[2019-01-08] MEDS: Atorvastatin* 20 MG TAB PO SCH (09:39)
[2019-01-08] MEDS: Pantoprazole TAB * 40 MG TAB PO SCH (09:39)
[2019-01-08] MEDS: Potassium Chloride LIQUID* 20 MEQ PACKET PO SCH (09:40)
[2019-01-08] MEDS: Magnesium Oxide TAB* 400 MG PO SCH ×2 (09:40→21:50)
[2019-01-08] MEDS: Polyethylene Glycol 3350* 17 GM PACKET PO SCH ×2 (09:40→09:46)
--- NOTE | 2019-01-08 15:59 | PN ---
Subjective Date of Service: 01/08/19 Interval History: This morning Lenka was disgruntled that I did not have answers for her about why she hasn't had an appetite, but then says she KNOWS why she hasn't had an appetite, and it was because her family was forcing her to eat and she didn't like it when they tell her what to do. She has a good appetite here. Objective Active Medications: Acetaminophen (Tylenol Tab*) 650 mg PO Q6H PRN PRN Reason: PAIN Last Admin: 01/08/19 00:03 Dose: 650 mg Atorvastatin Calcium (Lipitor*) 20 mg PO DAILY [facility] Last Admin: 01/08/19 09:39 Dose: 20 mg Enoxaparin Sodium (Lovenox(*)) 40 mg SUBCUT Q24H [facility] Last Admin: 01/08/19 06:48 Dose: 40 mg Gabapentin (Neurontin Cap(*)) 600 mg PO BID [facility] Last Admin: 01/08/19 09:45 Dose: Not Given Haloperidol Lactate (Haldol Inj Iv/Im*) 5 mg IM Q6H PRN PRN Reason: AGITATION Last Admin: 01/07/19 05:18 Dose: 5 mg Hydrocortisone (Hytone Cream 1%*) 1 applic TOPICAL BID [facility] Last Admin: 01/08/19 09:38 Dose: 1 applic Hydroxyzine HCl (Atarax Tab*) 25 mg PO Q4H PRN PRN Reason: ANXIETY Last Admin: 01/08/19 13:41 Dose: 25 mg Sodium Chloride (Ns 0.9% 1000 Ml) 1,000 mls @ 150 mls/hr IV PER RATE [facility] Last Admin: 01/08/19 11:27 Dose: 150 mls/hr Levothyroxine Sodium (Synthroid Tab*) 50 mcg PO 0600 [facility] Last Admin: 01/08/19 04:46 Dose: 50 mcg Magnesium Oxide (Magox 400 Tab*) 400 mg PO BID [facility] Last Admin: 01/08/19 09:40 Dose: 400 mg Ondansetron HCl (Zofran Inj*) 4 mg IV Q4H [facility] Last Admin: 01/08/19 15:21 Dose: 4 mg Pantoprazole Sodium (Protonix Tab*) 40 mg PO DAILY [facility] Last Admin: 01/08/19 09:39 Dose: 40 mg Polyethylene Glycol/Electrolytes (Miralax*) 17 gm PO 0800,2100 [facility] Last Admin: 01/08/19 09:46 Dose: Not Given Vital Signs - 8 hr 01/08/19 01/08/19 07:58 08:00 Temperature 98.1 F Pulse Rate 93 Respiratory 18 17 Rate Blood Pressure 143/73 (mmHg) O2 Sat by Pulse 97 Oximetry Oxygen Devices in Use Now: None Appearance: elderly, oriented, no distress Eyes: No Scleral Icterus Ears/Nose/Mouth/Throat: NL Teeth, Lips, Gums Neck: NL Appearance and Movements; NL JVP Respiratory: Symmetrical Chest Expansion and Respiratory Effort, Clear to Auscultation Cardiovascular: NL Sounds; No Murmurs; No JVD, RRR Abdominal: NL Sounds; No Tenderness; No Distention Lymphatic: No Cervical Adenopathy Extremities: No Edema Skin: - - scattered excoriations and scratches and sores Neurological: Alert and Oriented x 3 Result Diagrams: 01/07/19 06:25 01/07/19 06:25 Microbiology and Other Data: Microbiology 01/06/19 09:00 Urine Culture - Final Urine Assess/Plan/Problems-Billing Assessment: This is an 83 year old lady with history of GERD, neuropathy, and nonmelanoma skin cancer who had had poor PO intake and declining functional status over hte past two months who was brought to the ED 01/05 because her family could not get her to eat. - Patient Problems (1) Anorexia Current Visit: Yes Status: Acute Code(s): R63.0 - ANOREXIA SNOMED Code(s) : 97795299 Comment: patient admits there is a behavioral component in acting out against her family, but intra-abdominal lymphadenopathy suggests an organic component (2) Lymphadenopathy, abdominal Current Visit: Yes Status: Acute Code(s): R59.0 - LOCALIZED ENLARGED LYMPH NODES SNOMED Code(s): 528236345 Comment: unclear significance reactive vs. malignant? awaiting gastric biopsy pathology; patient and her family want to pursue a colonoscopy. Dr. Tomlin to discuss with them. (3) SVT (supraventricular tachycardia) Current Visit: Yes Status: Acute Code(s): I47.1 - SUPRAVENTRICULAR TACHYCARDIA SNOMED Code(s): 0632829 Comment: episode occured 01/06 and resolved spontaneously, no further tele events TTE okay lytes okay TSH elevated but was mistakenly ordered, as she had a normal TSH two days prior- - likely sicu thyroid (4) Hypothyroidism Current Visit: No Status: Acute Code(s): E03.9 - HYPOTHYROIDISM, UNSPECIFIED SNOMED Code(s): 02345689 Comment: levothyroxine dose just adjusted earlier this month (5) Weakness Current Visit: No Status: Acute Code(s): R53.1 - WEAKNESS SNOMED Code(s): 32852835 Comment: needs MY--I discussed this with her today and she will think about it
[2019-01-08] MEDS ORDERED: PEG 3000 GI LAVAGE* 1 GALLON PO ONE (17:35)
[2019-01-09] MEDS: NS 0.9% 1000 ML** 1,000 ML IV SCH ×2 (02:21→09:28)
[2019-01-09] MEDS: hydrOXYzine HCL TAB* 25 MG PO PRN ×4 (02:39→22:10)
[2019-01-09] MEDS: Ondansetron INJ* 2 MG/ML VIAL IV SCH ×5 (02:42→21:07)
[2019-01-09] MEDS: Levothyroxine TAB* 50 MCG TAB PO SCH (05:29)
[2019-01-09 06:12] LABS: Hematocrit 34 % (35-47); Mean Corpuscular HGB Conc 33 g/dL (31-36); Mean Corpuscular Hemoglobin 29 pg (27-31); Mean Corpuscular Volume 90 fL (80-97); Mean Platelet Volume 7.1 fL (7.4-10.4); Platelet Count 248 10^3/uL (150-450); Red Blood Count 3.77 10^6 /uL (3.70-4.87); Red Cell Distribution Width 20 % (10.5-15); White Blood Count 9.5 10^3/uL (3.5-10.8)
[2019-01-09 06:21] LABS: INR 1.2 (0.82-1.09)
[2019-01-09 06:31] LABS: Albumin 2.4 g/dL (3.2-5.2); Albumin/Globulin Ratio 0.9 (1-3); BUN/Creatinine Ratio 6.9 (8-20); Calcium 7.6 mg/dL (8.6-10.3); EGFR African American 93.8 (>60); EGFR Non-African American 77.5 (>60); Globulin 2.7 g/dL (2-4); Magnesium 1.7 mg/dL (1.9-2.7); Potassium 3.4 mmol/L (3.5-5.0); Total Bilirubin 0.6 mg/dL (0.2-1.0); Total Protein 5.1 g/dL (6.4-8.9)
[2019-01-09] MEDS: Enoxaparin(*) 40 MG/0.4 ML SYR SUBCUT SCH (07:41)
[2019-01-09] MEDS: Magnesium Oxide TAB* 400 MG PO SCH ×2 (07:58→21:06)
[2019-01-09] MEDS: Pantoprazole TAB * 40 MG TAB PO SCH (07:59)
[2019-01-09] MEDS: Atorvastatin* 20 MG TAB PO SCH (07:59)
[2019-01-09] MEDS: Gabapentin CAP(*) 300 MG PO SCH ×2 (08:00→20:45)
[2019-01-09] MEDS: Hydrocortisone 1% CREAM* 30 GM TUBE TOPICAL SCH ×2 (08:00→21:07)
--- NOTE | 2019-01-09 10:43 | PN ---
Subjective Date of Service: 01/09/19 Interval History: No overnight events. Lenka has been doing prep for colonoscopy, has drank about half of the liquid. No complaints. Objective Active Medications: Acetaminophen (Tylenol Tab*) 650 mg PO Q6H PRN PRN Reason: PAIN Last Admin: 01/08/19 21:50 Dose: 650 mg Atorvastatin Calcium (Lipitor*) 20 mg PO DAILY [facility] Last Admin: 01/09/19 07:59 Dose: 20 mg Enoxaparin Sodium (Lovenox(*)) 40 mg SUBCUT Q24H [facility] Last Admin: 01/09/19 07:41 Dose: 40 mg Gabapentin (Neurontin Cap(*)) 600 mg PO BID [facility] Last Admin: 01/09/19 08:00 Dose: Not Given Hydrocortisone (Hytone Cream 1%*) 1 applic TOPICAL BID [facility] Last Admin: 01/09/19 08:00 Dose: 1 applic Hydroxyzine HCl (Atarax Tab*) 25 mg PO Q4H PRN PRN Reason: ANXIETY Last Admin: 01/09/19 07:59 Dose: 25 mg Sodium Chloride (Ns 0.9% 1000 Ml) 1,000 mls @ 150 mls/hr IV PER RATE [facility] Last Admin: 01/09/19 09:28 Dose: 150 mls/hr Levothyroxine Sodium (Synthroid Tab*) 50 mcg PO 0600 [facility] Last Admin: 01/09/19 05:29 Dose: 50 mcg Magnesium Oxide (Magox 400 Tab*) 400 mg PO BID [facility] Last Admin: 01/09/19 07:58 Dose: 400 mg Ondansetron HCl (Zofran Inj*) 4 mg IV Q4H [facility] Last Admin: 01/09/19 07:41 Dose: 4 mg Pantoprazole Sodium (Protonix Tab*) 40 mg PO DAILY [facility] Last Admin: 01/09/19 07:59 Dose: 40 mg Vital Signs - 8 hr 01/09/19 01/09/19 07:20 07:52 Temperature 98.1 F Pulse Rate 96 Respiratory 20 20 Rate Blood Pressure 141/75 (mmHg) O2 Sat by Pulse 97 Oximetry Oxygen Devices in Use Now: None Appearance: alert, sitting up in recliner, daughter is visiting Eyes: No Scleral Icterus Ears/Nose/Mouth/Throat: NL Teeth, Lips, Gums Neck: NL Appearance and Movements; NL JVP Respiratory: Symmetrical Chest Expansion and Respiratory Effort, Clear to Auscultation Cardiovascular: NL Sounds; No Murmurs; No JVD, RRR Abdominal: NL Sounds; No Tenderness; No Distention Lymphatic: No Cervical Adenopathy Extremities: No Edema Skin: No Rash or Ulcers Result Diagrams: 01/09/19 05:15 01/09/19 05:15 Microbiology and Other Data: Microbiology 01/06/19 09:00 Urine Culture - Final Urine Assess/Plan/Problems-Billing Assessment: This is an 83 year old lady with history of GERD, neuropathy, and nonmelanoma skin cancer who had had poor PO intake and declining functional status over hte past two months who was brought to the ED 01/05 because her family could not get her to eat. - Patient Problems (1) Dementia Current Visit: Yes Status: Acute Code(s): F03.90 - UNSPECIFIED DEMENTIA WITHOUT BEHAVIORAL DISTURBANCE SNOMED Code(s): 14054640 Comment: MOCA = 14 This is suggestive of severe cognitive impairment Unfortunately I do not have a prior one for comparison--will reach out to her PCP to see if this has ever been done before. (2) Anorexia Current Visit: Yes Status: Acute Code(s): R63.0 - ANOREXIA SNOMED Code(s) : 33931177 Comment: patient admits there is a behavioral component in acting out against her family, but intra-abdominal lymphadenopathy suggests an organic component (3) Lymphadenopathy, abdominal Current Visit: Yes Status: Acute Code(s): R59.0 - LOCALIZED ENLARGED LYMPH NODES SNOMED Code(s): 889597762 Comment: unclear significance reactive vs. malignant? awaiting gastric biopsy pathology plan for colonoscopy today (mildly elevated cea + lad) (4) SVT (supraventricular tachycardia) Current Visit: Yes Status: Acute Code(s): I47.1 - SUPRAVENTRICULAR TACHYCARDIA SNOMED Code(s): 3432168 Comment: episode occured 01/06 and resolved spontaneously, no further tele events TTE okay lytes okay TSH elevated but was mistakenly ordered, as she had a normal TSH two days prior- - likely sicu thyroid (5) Hypothyroidism Current Visit: No Status: Acute Code(s): E03.9 - HYPOTHYROIDISM, UNSPECIFIED SNOMED Code(s): 66043464 Comment: levothyroxine dose just adjusted earlier this month (6) Weakness Current Visit: No Status: Acute Code(s): R53.1 - WEAKNESS SNOMED Code(s): 38013110 Comment: needs MY--she and her family agree
[2019-01-09] MEDS ORDERED: Midazolam* 1 MG/ML 10 ML VIAL (10 MG) ONE (12:19)
[2019-01-09] MEDS ORDERED: fentaNYL* 50 MCG/ML 2 ML VIAL (100 MCG VIAL) ONE (12:19)
[2019-01-09] MEDS ORDERED: Potassium Chloride* LIQUID 20 MEQ/15 ML UDC PO ONE (14:04)
--- NOTE | 2019-01-09 18:56 | PN ---
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 This suggests a more rapid deterioration in her cognitive disease than would be expected in something like alzheimer dementia, so will check an MRI, RPR, b12.
[2019-01-09] MEDS: Acetaminophen TAB* 325 MG PO PRN (21:07)
[2019-01-09] MEDS: Melatonin 3 MG TAB PO SCH (22:09)
--- NOTE | 2019-01-10 00:35 | PRO ---
DATE: 01/09/19 - ROOM #439 REFERRING PHYSICIAN: Naomi Ratliff * PROCEDURE: Colonoscopy and ileoscopy INDICATION: This 83-year-old woman has been in the hospital four days evaluating anorexia, poor intake, weight loss, low albumin, and a CT scan showing prominent intraabdominal nodes. Upper endoscopy 2 days ago showed granular inflamed gastric folds of normal configuration, benign gastric polyps, and no kathleen massss lesion or inflammatory process. Biopsies are not specific. She has been moderately anemic. A month ago or so was heme-negative. Her CEA is slightly up at 6.2. Dr Reyna had seen her yesterday in consultation and in discussion with the family colonoscopy was agreed upon. She took about half the prep. Liquid stool was coming through. ENDOSCOPIST: Dr. Bruno. MEDICATIONS: Midazolam 8, fentanyl 75. FINDINGS: She is a chronically ill woman, pale, in no overt distress but clearly frail. Her abdomen was soft and nontender. Rectal shows diminished tone. She was positioned left side down and moderate sedation induced. Initial views show a poor prep, but the retained material is loose, scattered, and no stool formations are present. Scope passes into the sigmoid and then descending. There was a fair amount of floppiness and reduced haustral markings. External hand checks from the nurse helped. Sigmoid and descending and transverse was entered. Once in the transverse colon, the cecum was reached easily. The cecum, ileocecal valve, 10-cm terminal ileum in the right colon directly was normal. On slow withdrawal, contours were well seen and no polyps or major lesions present. No diverticula were seen. No areas of colitis seen. IMPRESSION: Normal colonoscopy and ileoscopy - no colonic pathology explains her presentation. [id number][place] [place]: [id number] [facility]
[2019-01-10] MEDS: Ondansetron INJ* 2 MG/ML VIAL IV SCH ×3 (01:21→06:14)
[2019-01-10] MEDS: hydrOXYzine HCL TAB* 25 MG PO PRN ×3 (02:39→22:13)
[2019-01-10] MEDS: Enoxaparin(*) 40 MG/0.4 ML SYR SUBCUT SCH (06:11)
[2019-01-10] MEDS: Levothyroxine TAB* 50 MCG TAB PO SCH (06:14)
--- NOTE | 2019-01-10 07:03 | PN ---
Progress Note - Progress Note Date of Service: 01/10/19 Note: Event Note: Called to patient bedside due to change in status. She was comfortable overnight, walked to bathroom around 630am w/ assist. When she got back to chair, she developed dyspnea, and inability to hold posture in chair. Blood sugar was 70, was given apple juice, repeat blood sugar in 120s. O2sat fell below 84%, she was placed on 100% face mask, now has 96% sat. HR 120s , regular. BP was falling when seated, 135/87 when in bed. When assessed, she cannot speak, can mumble a few words in response. She is wobbling in chair, tripoding at times. She was helped to bed Lungs are clear, heart tachy A/P: differential includes new a-fib with RVR, pulmonary embolism, sepsis. Will have CXR portable, EKG, ABG. Has CBC, BMP pending on AM labs. May require ICU transfer if not improving.
[2019-01-10] MEDS ORDERED: Furosemide IV* 10 MG/ML VIAL (40 MG) IV ONE (07:28)
[2019-01-10] MEDS: Acetaminophen TAB* 325 MG PO PRN (08:12)
[2019-01-10 09:08] LABS: Hematocrit 33 % (35-47); Mean Corpuscular HGB Conc 33 g/dL (31-36); Mean Corpuscular Hemoglobin 30 pg (27-31); Mean Corpuscular Volume 89 fL (80-97); Platelet Count 251 10^3/uL (150-450); Red Blood Count 3.71 10^6 /uL (3.70-4.87); Red Cell Distribution Width 19 % (10.5-15); White Blood Count 12.8 10^3/uL (3.5-10.8)
[2019-01-10 09:29] LABS: BUN/Creatinine Ratio 6.7 (8-20); EGFR African American 89.5 (>60); Potassium 3.5 mmol/L (3.5-5.0)
[2019-01-10 09:37] LABS: Troponin I 0.04 ng/mL (<0.04)
[2019-01-10] MEDS ORDERED: Enoxaparin(*) 30 MG/0.3 ML SYR SUBCUT ONE (09:48)
[2019-01-10] MEDS ORDERED: predniSONE TAB* 50 MG PO ONE ×3 (10:00→22:00)
--- NOTE | 2019-01-10 10:05 | PN ---
Subjective Date of Service: 01/10/19 Interval History: Sarah developed SOB this AM, CXR shows pulm edema. Pr is anxious, cont to c/o left sided pleuritic CP. Aslo asks to urinate frequently-Avila will be inserted. Received 40 mg IV Lasix, still diuresing. C/o left rip pain -tender to palpation of L 10-11 rib. As per pt she has h/o rib fractures there in the past now breathing normalizing on 02 mask. Had a long conversation with pt's son (HCP) Cameron Objective Active Medications: Acetaminophen (Tylenol Tab*) 650 mg PO Q6H PRN PRN Reason: PAIN Last Admin: 01/10/19 08:12 Dose: 650 mg Atorvastatin Calcium (Lipitor*) 20 mg PO DAILY [facility] Last Admin: 01/09/19 07:59 Dose: 20 mg Diphenhydramine HCl (Benadryl Po*) 50 mg PO ONCE ONE Stop: 01/10/19 22:01 Dronabinol (Marinol Cap*) 2.[address] [facility] Enoxaparin Sodium (Lovenox(*)) 40 mg SUBCUT Q24H [facility] Last Admin: 01/10/19 06:11 Dose: 40 mg Enoxaparin Sodium (Lovenox(*)) 30 mg SUBCUT ONCE ONE Stop: 01/10/19 09:49 Gabapentin (Neurontin Cap(*)) 600 mg PO BID [facility] Last Admin: 01/09/19 20:45 Dose: Not Given Hydrocortisone (Hytone Cream 1%*) 1 applic TOPICAL BID [facility] Last Admin: 01/09/19 21:07 Dose: 1 applic Hydroxyzine HCl (Atarax Tab*) 25 mg PO Q4H PRN PRN Reason: ANXIETY Last Admin: 01/10/19 08:12 Dose: 25 mg Levothyroxine Sodium (Synthroid Tab*) 50 mcg PO 0600 [facility] Last Admin: 01/10/19 06:14 Dose: 50 mcg Magnesium Oxide (Magox 400 Tab*) 400 mg PO BID [facility] Last Admin: 01/09/19 21:06 Dose: 400 mg Melatonin (Melatonin) 3 mg PO BEDTIME [facility] Last Admin: 01/09/19 22:09 Dose: 3 mg Pantoprazole Sodium (Protonix Tab*) 40 mg PO DAILY [facility] Last Admin: 01/09/19 07:59 Dose: 40 mg Prednisone (Deltasone Tab*) 50 mg PO ONCE ONE Stop: 01/10/19 10:01 Prednisone (Deltasone Tab*) 50 mg PO ONCE ONE Stop: 01/10/19 16:01 Prednisone (Deltasone Tab*) 50 mg PO ONCE ONE Stop: 01/10/19 22:01 Vital Signs - 8 hr 01/10/19 01/10/19 01/10/19 03:15 06:37 06:41 Temperature 97.6 F 98 F 98 F Pulse Rate 87 110 102 Respiratory 12 30 Rate Blood Pressure 119/58 142/76 136/78 (mmHg) O2 Sat by Pulse 93 98 98 Oximetry 01/10/19 01/10/19 06:45 07:41 Temperature 98 F 97.6 F Pulse Rate 88 Respiratory 30 16 Rate Blood Pressure 129/85 137/77 (mmHg) O2 Sat by Pulse 100 100 Oximetry Oxygen Devices in Use Now: OxyMask Appearance: 83 yo f in nAD, AAOx3, poor historian, anxious Eyes: No Scleral Icterus, PERRLA Ears/Nose/Mouth/Throat: NL Teeth, Lips, Gums Neck: NL Appearance and Movements; NL JVP Respiratory: Symmetrical Chest Expansion and Respiratory Effort, - - rales b/l Cardiovascular: NL Sounds; No Murmurs; No JVD, RRR - chest palpated, pt has point tenderness on palpation of lower ribs on left side Abdominal: NL Sounds; No Tenderness; No Distention, No Hepatosplenomegaly Lymphatic: No Cervical Adenopathy Extremities: No Edema Skin: No Nodules or Sclerosis, - - superficial excoriations of b/l shoulders, distal LE's-not infected, lesions covered with eschar Neurological: NL Muscle Strength and Tone Result Diagrams: 01/10/19 08:56 01/10/19 08:56 Microbiology and Other Data: Microbiology 01/06/19 09:00 Urine Culture - Final Urine Assess/Plan/Problems-Billing Assessment: This is an 83 year old lady with history of GERD, neuropathy, and nonmelanoma skin cancer who had had poor PO intake and declining functional status over hte past two months who was brought to the ED 01/05 because her family could not get her to eat. - Patient Problems (1) SOB (shortness of breath) Comment: occured acutely on 01/10/19 resulting in acute hypoxemic resp failure due to pulm edema (suspect due to IVF earlier on hospital stay ) and diastolic dysfunction EF noted to be 55% this hosp stay pt treated with one dose of Lasix. Cont to monitor weights trop 0.04 likley demand ischemia, cont to trend. Pt has pleuritic CP with point tendernes on L lower ribs. CTA ordered. Pt with h/o iodine allergy -will be premedicated and covered with additional dose of Lovenox for now. (2) Anorexia Comment: patient admits there is a behavioral component in acting out against her family, but intra-abdominal lymphadenopathy suggests an organic component will start calorie count will start marinol (3) Dementia Comment: MOCA = 14 This is suggestive of severe cognitive impairment Unfortunately I do not have a prior one for comparison MRI brain unremarkable RPR pending, vit B12 level pending (4) Lymphadenopathy, abdominal Comment: unclear significance -consulted oncology gastric biopsy pathology unremarkable colonoscopy 01/09/19 WNL (5) SVT (supraventricular tachycardia) Comment: episode occured 01/06 and resolved spontaneously, no further tele events TTE okay lytes okay TSH elevated but was mistakenly ordered, as she had a normal TSH two days prior- - likely sicu thyroid (6) Hypothyroidism Comment: levothyroxine dose just adjusted earlier this month (7) DVT prophylaxis Comment: -lovenox, added on amnother dose to make up a total of 1 mg/kg to cover for poss PE. when awaiting CTA tonight (8) Full code status Comment: d/w son HCP-full code Status and Disposition: inpatient
[2019-01-10 10:09] LABS: Magnesium 1.6 mg/dL (1.9-2.7)
[2019-01-10] MEDS: Pantoprazole TAB * 40 MG TAB PO SCH (10:46)
[2019-01-10] MEDS: Magnesium Oxide TAB* 400 MG PO SCH ×2 (10:47→22:13)
[2019-01-10] MEDS: Atorvastatin* 20 MG TAB PO SCH (10:47)
[2019-01-10] MEDS: Gabapentin CAP(*) 300 MG PO SCH ×2 (10:50→19:52)
[2019-01-10] MEDS: Hydrocortisone 1% CREAM* 30 GM TUBE TOPICAL SCH ×2 (10:50→22:14)
[2019-01-10] MEDS: Dronabinol CAP* 2.5 MG PO SCH ×2 (12:14→16:40)
[2019-01-10] MEDS ORDERED: diPHENhydraMINE PO* 50 MG PO ONE (22:00)
[2019-01-10] MEDS: Melatonin 3 MG TAB PO SCH (22:12)
[2019-01-10] MEDS ORDERED: Iohexol 350* (CONTRAST) 500 ML MDV IV ONE (22:24)
[2019-01-11 05:31] LABS: ABS Lymphocytes 1.2 10^3/ul (1.0-4.8); ABS Monocytes 0.2 10^3/ul (0-0.8); ABS Neutrophils 5.7 10^3/ul (1.5-7.7); Eosinophil % 0.2 %; Hematocrit 31 % (35-47); Hemoglobin 10.4 g/dL (12.0-16.0); Lymphocyte % 16.3 %; Mean Corpuscular HGB Conc 33 g/dL (31-36); Mean Corpuscular Hemoglobin 30 pg (27-31); Mean Corpuscular Volume 89 fL (80-97); Mean Platelet Volume 7.1 fL (7.4-10.4); Platelet Count 274 10^3/uL (150-450); Red Cell Distribution Width 20 % (10.5-15); White Blood Count 7.1 10^3/uL (3.5-10.8)
[2019-01-11 05:42] LABS: Albumin 2.4 g/dL (3.2-5.2); Albumin/Globulin Ratio 0.9 (1-3); BUN/Creatinine Ratio 8.3 (8-20); C Reactive Protein 134.48 mg/L (<8.01); Calcium 7.7 mg/dL (8.6-10.3); EGFR African American 93.8 (>60); EGFR Non-African American 77.5 (>60); Globulin 2.6 g/dL (2-4); Potassium 3.4 mmol/L (3.5-5.0); Total Bilirubin 0.8 mg/dL (0.2-1.0)
[2019-01-11] MEDS: Enoxaparin(*) 40 MG/0.4 ML SYR SUBCUT SCH (06:16)
[2019-01-11] MEDS: Levothyroxine TAB* 50 MCG TAB PO SCH (06:16)
[2019-01-11] MEDS: hydrOXYzine HCL TAB* 25 MG PO PRN ×4 (06:20→22:13)
[2019-01-11 06:56] LABS: Erythrocyte Sed Rate 27 mm/Hr (0-29)
[2019-01-11] MEDS: Dronabinol CAP* 2.5 MG PO SCH ×3 (07:49→15:16)
[2019-01-11] MEDS: Atorvastatin* 20 MG TAB PO SCH (09:56)
[2019-01-11] MEDS: Gabapentin CAP(*) 300 MG PO SCH ×2 (09:58→19:58)
[2019-01-11] MEDS: Pantoprazole TAB * 40 MG TAB PO SCH (09:58)
[2019-01-11] MEDS: Hydrocortisone 1% CREAM* 30 GM TUBE TOPICAL SCH ×2 (09:58→22:13)
[2019-01-11] MEDS: Acetaminophen TAB* 325 MG PO PRN ×2 (10:02→18:27)
[2019-01-11] MEDS: Magnesium Oxide TAB* 400 MG PO SCH ×3 (10:04→22:12)
[2019-01-11] MEDS ORDERED: Furosemide IV* 10 MG/ML 2 ML VIAL (20 MG) IV ONE (10:56)
[2019-01-11] MEDS ORDERED: Calamine/Pramoxine LOTION 8%/1%* 180 ML TOPICAL PRN (11:01)
--- NOTE | 2019-01-11 11:14 | PN ---
Subjective Date of Service: 01/11/19 Interval History: Pt c/o multiple things during our long conversations about her new dx of lung cancer, but then forgets that she spoke about it. Those included: skin itching, sore throat, "if the IV is working", "feeling something in my belly, maybe I may need to go to the bathroom soon". Pt's son Cameron is by the bedside. . We spoke about the likely cancer diagnosis and about that that we need a sample of tissue to guide tx. Pt's breathing is better today, but still requires 02 Objective Active Medications: Acetaminophen (Tylenol Tab*) 650 mg PO Q6H PRN PRN Reason: PAIN Last Admin: 01/11/19 10:02 Dose: 650 mg Atorvastatin Calcium (Lipitor*) 20 mg PO DAILY [facility] Last Admin: 01/11/19 09:56 Dose: 20 mg Calamine/Pramoxine (Caladryl Lotion*) 1 applic TOPICAL QID PRN PRN Reason: skin itching Dronabinol (Marinol Cap*) 2.5 mg PO AC [facility] Last Admin: 01/11/19 07:49 Dose: 2.5 mg Enoxaparin Sodium (Lovenox(*)) 40 mg SUBCUT Q24H [facility] Last Admin: 01/11/19 06:16 Dose: 40 mg Gabapentin (Neurontin Cap(*)) 600 mg PO BID [facility] Last Admin: 01/11/19 09:58 Dose: Not Given Hydrocortisone (Hytone Cream 1%*) 1 applic TOPICAL BID [facility] Last Admin: 01/11/19 09:58 Dose: 1 applic Hydroxyzine HCl (Atarax Tab*) 25 mg PO Q4H PRN PRN Reason: ANXIETY Last Admin: 01/11/19 10:02 Dose: 25 mg Levothyroxine Sodium (Synthroid Tab*) 50 mcg PO 0600 [facility] Last Admin: 01/11/19 06:16 Dose: 50 mcg Magnesium Oxide (Magox 400 Tab*) 400 mg PO BID [facility] Last Admin: 01/11/19 10:04 Dose: Not Given Melatonin (Melatonin) 3 mg PO BEDTIME [facility] Last Admin: 01/10/19 22:12 Dose: 3 mg Pantoprazole Sodium (Protonix Tab*) 40 mg PO DAILY [facility] Last Admin: 01/11/19 09:58 Dose: 40 mg Vital Signs - 8 hr 01/11/19 01/11/19 01/11/19 03:52 07:43 07:49 Temperature 97.4 F 97.9 F Pulse Rate 81 78 Respiratory 18 18 18 Rate Blood Pressure 129/101 112/67 (mmHg) O2 Sat by Pulse 84 96 Oximetry 01/11/19 08:00 Temperature Pulse Rate Respiratory 18 Rate Blood Pressure (mmHg) O2 Sat by Pulse Oximetry Oxygen Devices in Use Now: Nasal Cannula Appearance: 83 yo F in nAD, aAOx3, poor recall, poor historian, tangential manner of speech Eyes: No Scleral Icterus, PERRLA Ears/Nose/Mouth/Throat: NL Teeth, Lips, Gums, Mucous Membranes Moist Neck: NL Appearance and Movements; NL JVP, Trachea Midline Respiratory: Symmetrical Chest Expansion and Respiratory Effort, - - crackles at b/l bases Cardiovascular: NL Sounds; No Murmurs; No JVD, RRR Abdominal: NL Sounds; No Tenderness; No Distention Lymphatic: No Cervical Adenopathy Extremities: No Edema, No Clubbing, Cyanosis Skin: No Nodules or Sclerosis, - - scattered excoriations on arms and legs Neurological: Alert and Oriented x 3, NL Muscle Strength and Tone Result Diagrams: 01/11/19 05:06 01/11/19 05:06 Microbiology and Other Data: Microbiology 01/06/19 09:00 Urine Culture - Final Urine Assess/Plan/Problems-Billing Assessment: This is an 83 year old lady with history of GERD, neuropathy, and nonmelanoma skin cancer who had had poor PO intake and declining functional status over hte past two months who was brought to the ED 01/05 because her family could not get her to eat. - Patient Problems (1) Lung cancer Comment: New dx on 01/10/19-left hilar mass with muliple LN and lymphadenopathy on abd CT noted. Oncology consulted Long conversation with daughter Hanna on the phone today. son Cameron by the bedside. Pt may be inclined to get bx and look at options before deciding if she wants tx. (2) SOB (shortness of breath) Comment: occured acutely on 01/10/19 resulting in acute hypoxemic resp failure due to pulm edema (suspect due to IVF earlier on hospital stay ) and diastolic dysfunction EF noted to be 55% this hosp stay pt treated with one dose of Lasix on 01/10, will rrepeat today.CTA neg for PE , positive for L hilar lung cancer (3) Anorexia Comment: patient admits there is a behavioral component in acting out against her family, but intra-abdominal lymphadenopathy suggests an organic component calorie count pneding marinol started 01/10/19 (4) Dementia Comment: MOCA = 14 This is suggestive of severe cognitive impairment Unfortunately we do not have a prior one for comparison MRI brain unremarkable RPR pending, vit B12 level WNL (5) SVT (supraventricular tachycardia) Comment: episode occured 01/06 and resolved spontaneously, no further tele events TTE okay lytes okay TSH elevated but was mistakenly ordered, as she had a normal TSH two days prior- - likely sicu thyroid (6) Hypothyroidism Comment: levothyroxine dose just adjusted earlier this month (7) Full code status Comment: d/w son HCP-full code (8) DVT prophylaxis Comment: -lovenox, Status and Disposition: inpatient
[2019-01-11] MEDS: KCL 20 MEQ/100 ML IVPREMIX* 20 MEQ/100 ML BAG IV SCH ×2 (12:44→15:54)
--- NOTE | 2019-01-11 13:44 | PN ---
Progress Note - Progress Note Date of Service: 01/11/19 SOAP: Subjective: [83 yo non-smoking female with GERD and hypothyroidism who presented with progressive weakness, weight loss and freq vomiting. CT demonstrated scattered LAD and oncology has been asked to consult for possibility of malignancy. Patient and her family report that as of 2 months she was a very functional and active lady. She lived independently and maintained a large piece of property. Starting 2 months ago she developed some difficulty swallowing and freq nausea. Appetite has been poor and she lost ~25# over the last 2 months. No fevers, chills or night sweats. She reports that she was seen by her PCP, Dr Michael, with these complaints and pulm nodules were seen on imaging. Per patient, plan was to monitor the nodules, and no biopsy has been done. CT chest was completed yesterday which demonstrates a large R lung mass and significantly LAD. Patient reports that her appetite continues to be poor and she does not want to be forced to eat. Reports dyspnea and mild cough. Still has some nausea and persistent dysphagia with the feeling that things have a difficult time passing in the proximal esophagus. She has had an upper endoscopy this admission which was unremarkable for structural explanation for her dysphagia. ] Objective: [ Laboratory Results - last 24 hr 01/10/19 01/10/19 01/11/19 08:56 14:49 05:06 WBC 7.1 RBC 3.50 L Hgb 10.4 L Hct 31 L MCV 89 MCH 30 MCHC 33 RDW 20 H Plt Count 274 MPV 7.1 L Neut % (Auto) 80.3 Lymph % (Auto) 16.3 [place] % (Auto) 2.9 Eos % (Auto) 0.2 Baso % (Auto) 0.3 Absolute Neuts (auto) 5.7 Absolute Lymphs (auto) 1.2 Absolute Monos (auto) 0.2 Absolute Eos (auto) 0.0 Absolute Basos (auto) 0.0 Absolute Nucleated RBC 0.0 Nucleated RBC % 0.0 ESR 27 Sodium 141 Potassium 3.5 Chloride 110 Carbon Dioxide 22 Anion Gap 9 BUN 5 L Creatinine 0.75 Est GFR ( Amer) 89.5 Est GFR (Non-Af Amer) 74.0 BUN/Creatinine Ratio 6.7 L Glucose 108 H Calcium 8.0 L Magnesium 1.6 L Total Bilirubin AST ALT Alkaline Phosphatase Lactate Dehydrogenase 564 H Troponin I 0.04 H* 0.03 C-Reactive Protein Total Protein Albumin Globulin Albumin/Globulin Ratio Vitamin B12 769 01/11/19 05:06 WBC RBC Hgb Hct MCV MCH MCHC RDW Plt Count MPV Neut % (Auto) Lymph % (Auto) [place] % (Auto) Eos % (Auto) Baso % (Auto) Absolute Neuts (auto) Absolute Lymphs (auto) Absolute Monos (auto) Absolute Eos (auto) Absolute Basos (auto) Absolute Nucleated RBC Nucleated RBC % ESR Sodium 140 Potassium 3.4 L Chloride 105 Carbon Dioxide 26 Anion Gap 9 BUN 6 Creatinine 0.72 Est GFR ( Amer) 93.8 Est GFR (Non-Af Amer) 77.5 BUN/Creatinine Ratio 8.3 Glucose 153 H Calcium 7.7 L Magnesium Total Bilirubin 0.80 AST 26 ALT 19 Alkaline Phosphatase 143 H Lactate Dehydrogenase Troponin I C-Reactive Protein 134.48 H Total Protein 5.0 L Albumin 2.4 L Globulin 2.6 Albumin/Globulin Ratio 0.9 L Vitamin B12 Acetaminophen (Tylenol Tab*) 650 mg PO Q6H PRN PRN Reason: PAIN Last Admin: 01/11/19 10:02 Dose: 650 mg Atorvastatin Calcium (Lipitor*) 20 mg PO DAILY [facility] Last Admin: 01/11/19 09:56 Dose: 20 mg Calamine/Pramoxine (Caladryl Lotion*) 1 applic TOPICAL QID PRN PRN Reason: skin itching Dronabinol (Marinol Cap*) 2.5 mg PO AC [facility] Last Admin: 01/11/19 12:12 Dose: Not Given Enoxaparin Sodium (Lovenox(*)) 40 mg SUBCUT Q24H [facility] Last Admin: 01/11/19 06:16 Dose: 40 mg Gabapentin (Neurontin Cap(*)) 600 mg PO BID [facility] Last Admin: 01/11/19 09:58 Dose: Not Given Hydrocortisone (Hytone Cream 1%*) 1 applic TOPICAL BID [facility] Last Admin: 01/11/19 09:58 Dose: 1 applic Hydroxyzine HCl (Atarax Tab*) 25 mg PO Q4H PRN PRN Reason: ANXIETY Last Admin: 01/11/19 10:02 Dose: 25 mg Potassium Chloride (Potassium Chloride 20 Meq/100 Ml Ivpremix*) 20 meq in 100 mls @ 50 mls/hr IV Q2H [facility] Stop: 01/11/19 15:59 Last Admin: 01/11/19 12:44 Dose: 50 mls/hr Levothyroxine Sodium (Synthroid Tab*) 50 mcg PO 0600 [facility] Last Admin: 01/11/19 06:16 Dose: 50 mcg Magnesium Oxide (Magox 400 Tab*) 400 mg PO BID [facility] Last Admin: 01/11/19 10:04 Dose: Not Given Melatonin (Melatonin) 3 mg PO BEDTIME [facility] Last Admin: 01/10/19 22:12 Dose: 3 mg Pantoprazole Sodium (Protonix Tab*) 40 mg PO DAILY [facility] Last Admin: 01/11/19 09:58 Dose: 40 mg Vital Signs: Temp Pulse Resp BP Pulse Ox 97.9 F 78 18 112/67 96 01/11/19 07:43 01/11/19 07:43 01/11/19 12:12 01/11/19 07:43 01/11/19 07:43 Exam: Gen: Alert, but frail appearing 83 yo female in NAD accompanied by her son and daughter HEENT: MMM Neck: mobile R posterior cervical node ~[address]: palpable LAD in both axilla, L is central and ~3cm in size, R is more inferior/central and ~2cm, no supra/infraclavicular or inguinal LAD Abd: soft, nonTTP Ext: no edema] Assessment: [83 yo female with GERD and hypothyroidism who presents with weight loss and generalized decline who now has findings c/w metastatic disease with primary mass likely being L hilar mass.] Plan: [1. Suspected metastatic malignancy - recommend bx, she has palpable axillary LAD which appears malignant on imaging , these are easily accessible for FNA done by palpation - further discussion with patient and family regarding prognosis and treatment planning can occur following review of biopsy results 2. Anorexia 3. Hypothyroidism 4. GERD Dispo: per hospitalist, full oncology consultation pending biopsy results Spent 30 min face to face, >50% spent in counseling
[2019-01-11] MEDS ORDERED: LORazepam TAB(*) 0.5 MG PO ONE (22:07)
[2019-01-11] MEDS: Melatonin 3 MG TAB PO SCH (22:13)
[2019-01-12] MEDS: Enoxaparin(*) 40 MG/0.4 ML SYR SUBCUT SCH ×2 (07:33→07:43)
[2019-01-12] MEDS: Dronabinol CAP* 2.5 MG PO SCH (07:33)
[2019-01-12] MEDS: Levothyroxine TAB* 50 MCG TAB PO SCH (07:34)
[2019-01-12 07:40] LABS: BUN/Creatinine Ratio 16.7 (8-20); Calcium 7.4 mg/dL (8.6-10.3); EGFR African American 103.7 (>60); EGFR Non-African American 85.7 (>60); Magnesium 1.6 mg/dL (1.9-2.7); Potassium 3.4 mmol/L (3.5-5.0)
[2019-01-12] MEDS ORDERED: Furosemide IV* 10 MG/ML 2 ML VIAL (20 MG) IV ONE (08:43)
[2019-01-12] MEDS ORDERED: Magnesium Sulfate 2 GM IV* 2 GM/50 ML BAG IVPB ONE (08:55)
[2019-01-12] MEDS: Magnesium Oxide TAB* 400 MG PO SCH ×2 (09:00→20:26)
[2019-01-12] MEDS: Gabapentin CAP(*) 300 MG PO SCH ×3 (09:00→20:28)
[2019-01-12] MEDS: Pantoprazole TAB * 40 MG TAB PO SCH (09:00)
[2019-01-12] MEDS: Atorvastatin* 20 MG TAB PO SCH (09:00)
--- NOTE | 2019-01-12 09:02 | PN ---
Subjective Date of Service: 01/12/19 Interval History: Pt went to bathroom, got very SOB and anxious, calling to RN "I'm going to ! " currently unable to get comfortable in chair, but no increased WOB noted on exam. c/o lower back pain Objective Active Medications: Acetaminophen (Tylenol Tab*) 650 mg PO Q6H PRN PRN Reason: PAIN Last Admin: 01/11/19 18:27 Dose: 650 mg Atorvastatin Calcium (Lipitor*) 20 mg PO DAILY [facility] Last Admin: 01/11/19 09:56 Dose: 20 mg Calamine/Pramoxine (Caladryl Lotion*) 1 applic TOPICAL QID PRN PRN Reason: skin itching Dronabinol (Marinol Cap*) 2.5 mg PO AC [facility] Last Admin: 01/12/19 07:33 Dose: 2.5 mg Enoxaparin Sodium (Lovenox(*)) 40 mg SUBCUT Q24H [facility] Last Admin: 01/12/19 07:43 Dose: Not Given Gabapentin (Neurontin Cap(*)) 600 mg PO BID [facility] Last Admin: 01/11/19 19:58 Dose: Not Given Hydrocortisone (Hytone Cream 1%*) 1 applic TOPICAL BID [facility] Last Admin: 01/11/19 22:13 Dose: 1 applic Hydroxyzine HCl (Atarax Tab*) 25 mg PO Q4H PRN PRN Reason: ANXIETY Last Admin: 01/11/19 22:13 Dose: 25 mg Levothyroxine Sodium (Synthroid Tab*) 50 mcg PO 0600 [facility] Last Admin: 01/12/19 07:34 Dose: 50 mcg Magnesium Oxide (Magox 400 Tab*) 400 mg PO BID [facility] Last Admin: 01/11/19 22:12 Dose: 400 mg Melatonin (Melatonin) 3 mg PO BEDTIME [facility] Last Admin: 01/11/19 22:13 Dose: 3 mg Morphine Sulfate (Morphine Inj (Syringe)*) 2 mg IV Q6H PRN PRN Reason: PAIN Pantoprazole Sodium (Protonix Tab*) 40 mg PO DAILY [facility] Last Admin: 01/11/19 09:58 Dose: 40 mg Vital Signs - 8 hr 01/12/19 01/12/19 02:59 07:33 Temperature 97.8 F Pulse Rate 77 Respiratory 16 16 Rate Blood Pressure 108/57 (mmHg) O2 Sat by Pulse 100 Oximetry Oxygen Devices in Use Now: Nasal Cannula Appearance: 83 yo F in nAD, AAOx2, anxious Eyes: No Scleral Icterus, PERRLA Ears/Nose/Mouth/Throat: NL Teeth, Lips, Gums, Mucous Membranes Moist Neck: NL Appearance and Movements; NL JVP, Trachea Midline Respiratory: Symmetrical Chest Expansion and Respiratory Effort, - - rales at b/ l bases Cardiovascular: NL Sounds; No Murmurs; No JVD, RRR Abdominal: NL Sounds; No Tenderness; No Distention Lymphatic: No Cervical Adenopathy Extremities: No Edema, No Clubbing, Cyanosis Skin: No Rash or Ulcers Neurological: NL Muscle Strength and Tone Result Diagrams: 01/11/19 05:06 01/12/19 06:37 Microbiology and Other Data: Microbiology 01/06/19 09:00 Urine Culture - Final Urine Assess/Plan/Problems-Billing Assessment: This is an 83 year old lady with history of GERD, neuropathy, and nonmelanoma skin cancer who had had poor PO intake and declining functional status over hte past two months who was brought to the ED 01/05 because her family could not get her to eat. - Patient Problems (1) Lung cancer Comment: New dx on 01/10/19-left hilar mass with muliple LN and lymphadenopathy on abd CT noted. Oncology consulted, recommended left axillary LN bx. Will try to arrange it for today Long conversation with daughter Hanna on the phone 01/11/19 and son Cameron by the bedside the same day. Pt may be inclined to get bx and look at options before deciding if she wants tx. for now she is still full code. will consult Palliative Care for goals of care and further discussion re: code status (2) SOB (shortness of breath) Comment: occured acutely on 01/10/19 resulting in acute hypoxemic resp failure, recurred today. due to pulm edema (suspect due to IVF earlier on hospital stay ) and diastolic dysfunction EF noted to be 55% this hosp stay pt treated with a dose of Lasix on 01/10, will repeat today.CTA neg for PE , positive for L hilar lung cancer (3) Anorexia Comment: patient admits there is a behavioral component in acting out against her family, but intra-abdominal lymphadenopathy suggests an organic component calorie count pneding marinol started 01/10/19, pt did not like it-discontinued (4) Dementia Comment: MOCA = 14 This is suggestive of severe cognitive impairment Unfortunately we do not have a prior one for comparison MRI brain unremarkable RPR pending, vit B12 level WNL (5) SVT (supraventricular tachycardia) Comment: episode occured 01/06 and resolved spontaneously, no further tele events TTE okay lytes okay TSH elevated but was mistakenly ordered, as she had a normal TSH two days prior- - likely sicu thyroid (6) Hypothyroidism Comment: levothyroxine dose just adjusted earlier this month (7) Full code status Comment: d/w son HCP-full code (8) DVT prophylaxis Comment: -lovenox, Status and Disposition: inpatient
[2019-01-12] MEDS: Morphine 4 MG/ML VIAL (1 ml) 4 MG/ML VIAL IV PRN (09:10)
[2019-01-12] MEDS: Hydrocortisone 1% CREAM* 30 GM TUBE TOPICAL SCH ×2 (09:22→20:26)
[2019-01-12] MEDS: hydrOXYzine HCL TAB* 25 MG PO PRN (17:06)
--- NOTE | 2019-01-12 17:47 | CONSULT ---
Palliative / Hospice Consult Ordering Provider: Eli Asher - PCP-Gaudencio Referal Reason: Goals of care and MOLST form completion - Subjective Code Status: Full Code Advance Directives Location: No Advance Directives - History or Present Illness History or Present Illness: 83yo female presents to ER with weakness, decrease intake and nausea since the end of October. She was living independently and able to care for herself, now her daughter is caring for her most of the day. PMH is significant for GERD, hyperlipidemia, hypothyroidism, neuropathy, skin cancer which was removed and hiatal hernia. She is a non smoker, no drugs and no etoh user, had 5 children 3 are still living(Cameron and Hanna are her HCP). All history is from pt and old medical records. Significant tests ECHO EF 50-55%, brain CT neg, MRI brain shows no acute changes but does have chronic microvascular ischemic changes, CT abd/pelvis shows pulm nodules & adenopathy, CTA no pulmonary embolism but suspect primary lung ca & met to T6 with fracture, H/H 10.4/31, BUN /Cr 11/.66 egfr 85.7, tprot 5 & alb 2.4. Awaiting FNA of node for definitive tissue diagnosis. Lab Values: Abnormal Lab Results 01/10/19 01/12/19 08:56 06:37 Sodium 139 Potassium 3.4 L Chloride 106 Carbon Dioxide 24 Anion Gap 9 BUN 11 Creatinine 0.66 Est GFR ( Amer) 103.7 Est GFR (Non-Af Amer) 85.7 BUN/Creatinine Ratio 16.7 Glucose 65 L Calcium 7.4 L Magnesium 1.6 L Syphilis IgG Antibody Negative Laboratory Last Values WBC 7.1 10^3/uL (3.5-10.8) 01/11/19 05:06 RBC 3.50 10^6 /uL (3.70-4.87) L 01/11/19 05:06 Hgb 10.4 g/dL (12.0-16.0) L 01/11/19 05:06 Hct 31 % (35-47) L 01/11/19 05:06 MCV 89 fL (80-97) 01/11/19 05:06 MCH 30 pg (27-31) 01/11/19 05:06 MCHC 33 g/dL (31-36) 01/11/19 05:06 RDW 20 % (10.5-15) H 01/11/19 05:06 Plt Count 274 10^3/uL (150-450) 01/11/19 05:06 MPV 7.1 fL (7.4-10.4) L 01/11/19 05:06 Neut % (Auto) 80.3 % 01/11/19 05:06 Lymph % (Auto) 16.3 % 01/11/19 05:06 [place] % (Auto) 2.9 % 01/11/19 05:06 Eos % (Auto) 0.2 % 01/11/19 05:06 Baso % (Auto) 0.3 % 01/11/19 05:06 Absolute Neuts (auto) 5.7 10^3/ul (1.5-7.7) 01/11/19 05:06 Absolute Lymphs (auto) 1.2 10^3/ul (1.0-4.8) 01/11/19 05:06 Absolute Monos (auto) 0.2 10^3/ul (0-0.8) 01/11/19 05:06 Absolute Eos (auto) 0.0 10^3/ul (0-0.6) 01/11/19 05:06 Absolute Basos (auto) 0.0 10^3/ul (0-0.2) 01/11/19 05:06 Absolute Nucleated RBC 0.0 10^3/ul 01/11/19 05:06 Nucleated RBC % 0.0 01/11/19 05:06 ESR 27 mm/Hr (0-29) 01/11/19 05:06 INR (Anticoag Therapy) 1.20 (0.82-1.09) H 01/09/19 05:15 Patient Temperature Not Reportable 01/10/19 07:15 ABG pH 7.39 (7.35-7.45) 01/10/19 07:15 ABG pH (Temp Correct) Not Reportable 01/10/19 07:15 ABG pCO2 32 mmHg (35-45) L 01/10/19 07:15 ABG pCO2 (Temp Corrct Not Reportable 01/10/19 07:15 ABG pO2 145 mmHg (80-100) H 01/10/19 07:15 ABG pO2 (Temp Correct Not Reportable 01/10/19 07:15 ABG HCO3 21.3 mmol/L (19-31) 01/10/19 07:15 ABG O2 Saturation 100.0 % (94.0-98.0) H 01/10/19 07:15 ABG Base Excess -4.6 mmol/L (-2.0-2.0) L 01/10/19 07:15 Respiration Rate Not Reportable 01/10/19 07:15 O2 Delivery Device 3lpm oxymask 01/10/19 07:15 Ventilator Type Not Reportable 01/10/19 07:15 Vent Mode Not Reportable 01/10/19 07:15 FiO2 Not Reportable 01/10/19 07:15 Inspiratory Time Not Reportable 01/10/19 07:15 PEEP Not Reportable 01/10/19 07:15 Pressure Support Not Reportable 01/10/19 07:15 Pressure Control Not Reportable 01/10/19 07:15 EPAP Not Reportable 01/10/19 07:15 IPAP Not Reportable 01/10/19 07:15 BiPAP Not Reportable 01/10/19 07:15 Sodium 139 mmol/L (135-145) 01/12/19 06:37 Potassium 3.4 mmol/L (3.5-5.0) L 01/12/19 06:37 Chloride 106 mmol/L (101-111) 01/12/19 06:37 Carbon Dioxide 24 mmol/L (22-32) 01/12/19 06:37 Anion Gap 9 mmol/L (2-11) 01/12/19 06:37 BUN 11 mg/dL (6-24) 01/12/19 06:37 Creatinine 0.66 mg/dL (0.51-0.95) 01/12/19 06:37 Est GFR ( Amer) 103.7 (>60) 01/12/19 06:37 Est GFR (Non-Af Amer) 85.7 (>60) 01/12/19 06:37 BUN/Creatinine Ratio 16.7 (8-20) 01/12/19 06:37 Glucose 65 mg/dL (70-100) L 01/12/19 06:37 POC Glucose (mg/dL) 125 mg/dL (70-100) H 01/10/19 06:44 Lactic Acid 1.1 mmol/L (0.5-2.0) 01/07/19 06:25 Calcium 7.4 mg/dL (8.6-10.3) L 01/12/19 06:37 Phosphorus 2.1 mg/dL (2.5-5.0) L 01/07/19 06:25 Magnesium 1.6 mg/dL (1.9-2.7) L 01/12/19 06:37 Iron 42 ug/dL (50-212) L 01/05/19 06:42 Ferritin 875.7 ng/mL (11-307) H 01/05/19 06:42 Total Bilirubin 0.80 mg/dL (0.2-1.0) 01/11/19 05:06 GGT 33 U/L (9-64.0) 01/05/19 06:42 AST 26 U/L (13-39) 01/11/19 05:06 ALT 19 U/L (7-52) 01/11/19 05:06 Alkaline Phosphatase 143 U/L (34-104) H 01/11/19 05:06 Lactate Dehydrogenase 564 U/L (140-271) H 01/10/19 08:56 Troponin I 0.03 ng/mL (<0.04) 01/10/19 14:49 C-Reactive Protein 134.48 mg/L (<8.01) H 01/11/19 05:06 Total Protein 5.0 g/dL (6.4-8.9) L 01/11/19 05:06 Albumin 2.4 g/dL (3.2-5.2) L 01/11/19 05:06 Globulin 2.6 g/dL (2-4) 01/11/19 05:06 Albumin/Globulin Ratio 0.9 (1-3) L 01/11/19 05:06 Carcinoembryonic Ag 6.2 ng/mL (0.1-5.0) H 01/05/19 06:42 CA 19-9 Antigen 10 U/mL (<35) 01/05/19 06:42 Vitamin B12 769 pg/mL (180-914) 01/10/19 08:56 Folate 3.93 ng/mL (>3.99) 01/05/19 06:42 TSH 8.26 mcIU/mL (0.34-5.60) H 01/07/19 06:25 Urine Color Yellow 01/06/19 09:00 Urine Appearance Clear 01/06/19 09:00 Urine pH 5.0 (5-9) 01/06/19 09:00 Ur Specific [place] 1.016 (1.010-1.030) 01/06/19 09:00 Urine Protein Negative (Negative) 01/06/19 09:00 Urine Ketones 1+ (Negative) A 01/06/19 09:00 Urine Blood Negative (Negative) 01/06/19 09:00 Urine Nitrate Negative (Negative) 01/06/19 09:00 Urine Bilirubin Negative (Negative) 01/06/19 09:00 Urine Urobilinogen Negative (Negative) 01/06/19 09:00 Ur Leukocyte Esterase 1+ (Negative) A 01/06/19 09:00 Urine WBC (Auto) 3+(>20/hpf) (Absent) A 01/06/19 09:00 Urine RBC (Auto) 1+(3-5/hpf) (Absent) A 01/06/19 09:00 Ur Squamous Epith Cells Present (Absent) A 01/06/19 09:00 Urine Bacteria Absent (Absent) 01/06/19 09:00 Urine Yeast Present (Absent) A 01/06/19 09:00 Urine Glucose Negative (Negative) 01/06/19 09:00 Syphilis IgG Antibody Negative (Negative) 01/10/19 08:56 HIV 1&2 Antibody Nonreactive (Nonreactive) 01/07/19 06:25 - Objective Active Medications: Acetaminophen (Tylenol Tab*) 650 mg PO Q6H PRN PRN Reason: PAIN Last Admin: 01/11/19 18:27 Dose: 650 mg Atorvastatin Calcium (Lipitor*) 20 mg PO DAILY [facility] Last Admin: 01/12/19 09:00 Dose: Not Given Calamine/Pramoxine (Caladryl Lotion*) 1 applic TOPICAL QID PRN PRN Reason: skin itching Enoxaparin Sodium (Lovenox(*)) 40 mg SUBCUT Q24H [facility] Last Admin: 01/12/19 07:43 Dose: Not Given Furosemide (Lasix Iv*) 20 mg IV DAILY [facility] Gabapentin (Neurontin Cap(*)) 600 mg PO BID [facility] Last Admin: 01/12/19 09:00 Dose: Not Given Hydrocortisone (Hytone Cream 1%*) 1 applic TOPICAL BID [facility] Last Admin: 01/12/19 09:22 Dose: 1 applic Hydroxyzine HCl (Atarax Tab*) 25 mg PO Q4H PRN PRN Reason: ANXIETY Last Admin: 01/12/19 17:06 Dose: 25 mg Levothyroxine Sodium (Synthroid Tab*) 50 mcg PO 0600 [facility] Last Admin: 01/12/19 07:34 Dose: 50 mcg Magnesium Oxide (Magox 400 Tab*) 400 mg PO BID [facility] Last Admin: 01/12/19 09:00 Dose: Not Given Melatonin (Melatonin) 3 mg PO BEDTIME [facility] Last Admin: 01/11/19 22:13 Dose: 3 mg Morphine Sulfate (Morphine 4 Mg/Ml Vial (1 Ml)) 2 mg IV Q6H PRN PRN Reason: PAIN Last Admin: 01/12/19 09:10 Dose: 2 mg Pantoprazole Sodium (Protonix Tab*) 40 mg PO DAILY [facility] Last Admin: 01/12/19 09:00 Dose: Not Given Vital Signs: Vital Signs: Temp Pulse Resp BP Pulse Ox 97.9 F 88 16 105/60 98 01/12/19 15:32 01/12/19 15:32 01/12/19 15:32 01/12/19 15:32 01/12/19 15:32 Patient Weight: Weight 70.398 kg Intake and Output: Intake & Output 01/10/19 01/11/19 01/12/19 01/13/19 06:59 06:59 06:59 06:59 Intake Total 1626 820 400 540 Output Total 620 3475 1225 1080 Balance 1006 -2655 -825 -540 Weight 64.229 kg 70.398 kg Intake: IV Fluids 1386 0 200 10 NS (0.9%) 1386 0 100 10 Potassium 100 IVPB 50 NS (0.9%) 50 Oral 240 820 200 480 Output: Urine 620 900 [place] 2575 1225 1080 Other: # Voids 3 ADLs: Meal Record Start: 01/05/19 08: 45 Freq: DAILY@0900,1400,1800 Status: Active Protocol: Created 01/05/19 08:45 System (Rec: 01/05/19 08:45 System MED-C25) Document 01/05/19 14:00 [id number] (Rec: 01/05/19 14:57 [id number] MED-C11) Document 01/06/19 09:00 CBI4077 (Rec: 01/06/19 09:50 SMP1807 MED-C11) Document 01/06/19 09:21 [id number] (Rec: 01/06/19 10:22 [id number] MED-C16) Document 01/06/19 14:00 CTI5530 (Rec: 01/06/19 15:06 VLC9083 TELE-C01) Document 01/07/19 08:54 RUF5795 (Rec: 01/07/19 08:54 BDH3715 TELE-C01) Document 01/07/19 14:00 UNE2081 (Rec: 01/07/19 14:41 FRS2371 TELE-C01) Document 01/07/19 18:00 PSG8395 (Rec: 01/07/19 21:21 BVW0728 TELE-C07) Document 01/08/19 09:00 PSQ8785 (Rec: 01/08/19 11:58 HZX3390 TELE-C01) Document 01/08/19 14:00 PJT1890 (Rec: 01/08/19 14:42 IOH6054 TELE-C01) Document 01/08/19 18:00 ENI4173 (Rec: 01/08/19 20:33 MND1178 TELE-C03) Document 01/09/19 09:00 ZBL7415 (Rec: 01/09/19 09:30 JZD9577 TELE-C03) Document 01/09/19 14:00 HFI7302 (Rec: 01/09/19 14:04 FTA0792 TELE-C03) Document 01/09/19 18:00 LTL4666 (Rec: 01/09/19 22:26 XZL5237 TELE-C11) Document 01/10/19 09:00 ZDA1311 (Rec: 01/10/19 09:19 NAH0699 TELE-C11) Document 01/10/19 12:41 PCX3698 (Rec: 01/10/19 12:43 NNN6243 TELE-C11) Document 01/10/19 14:00 RVQ4286 (Rec: 01/10/19 14:23 GNT8871 TELE-C11) Document 01/10/19 18:00 CVF2608 (Rec: 01/10/19 18:12 UXG3909 TELE-C10) Document 01/11/19 09:00 TNM4725 (Rec: 01/11/19 14:23 NLM8875 TELE-C06) Document 01/11/19 14:00 JSD5975 (Rec: 01/11/19 14:24 WLK7705 TELE-C06) Document 01/11/19 18:00 PBD3862 (Rec: 01/11/19 19:48 XHA8687 TELE-C03) Document 01/12/19 09:00 ZHB5075 (Rec: 01/12/19 11:10 GYJ9921 TELE-C11) Document 01/12/19 14:00 AER5260 (Rec: 01/12/19 14:02 ALP4344 TELE-C11) Intake and Output Start: 01/04/19 19: 49 Freq: Status: Cancelled Protocol: Created 01/04/19 19:49 System (Rec: 01/04/19 19:49 System ED-C24) Intake and Output Start: 01/05/19 08: 45 Freq: DAILY@0600,1400,2200 Status: Cancelled Protocol: Created 01/05/19 08:45 System (Rec: 01/05/19 08:45 System MED-C25) Document 01/05/19 21:44 TVW0786 (Rec: 01/05/19 22:07 IIK5203 MED-C09) Document 01/06/19 06:00 UUF8665 (Rec: 01/06/19 06:13 RUB2781 MEDL-C02) Document 01/06/19 14:00 MFL6373 (Rec: 01/06/19 15:06 MKA9374 TELE-C01) Document 01/06/19 22:00 JPQ1578 (Rec: 01/06/19 22:28 MNW5000 TELE-C01) Document 01/07/19 06:00 IZW2551 (Rec: 01/07/19 07:26 IRF9308 HOSP-C11) Document 01/07/19 14:00 RKR5741 (Rec: 01/07/19 14:43 WLI0191 TELE-C01) Document 01/07/19 21:24 JZQ5359 (Rec: 01/07/19 21:24 JUS9072 TELE-C07) Document 01/08/19 06:00 YPY7961 (Rec: 01/08/19 06:48 ZYV8077 TELE-C34) Document 01/08/19 14:00 LUY9942 (Rec: 01/08/19 14:43 QER0500 TELE-C01) Document 01/08/19 22:00 ZDO6712 (Rec: 01/08/19 23:36 UBF4507 TELE-C03) Document 01/09/19 06:00 MVR5580 (Rec: 01/09/19 07:21 DHR8796 TELE-C34) Document 01/09/19 14:00 JPI5704 (Rec: 01/09/19 14:05 EZF9191 TELE-C03) Document 01/09/19 18:57 WHA4350 (Rec: 01/09/19 18:57 MZD4773 TELE-M11) Document 01/09/19 22:00 RDN3526 (Rec: 01/09/19 22:27 ZYL4777 TELE-C11) Document 01/10/19 06:00 RSI0410 (Rec: 01/10/19 06:05 OWA8821 TELE-C01) Intake and Output Start: 01/10/19 09: 03 Freq: 06,14,2200 Status: Active Protocol: Created 01/10/19 09:04 LQR4746 (Rec: 01/10/19 09:04 BKG TRISH-BG12) Document 01/10/19 14:00 TUG1632 (Rec: 01/10/19 14:24 TTD8246 TELE-C11) Document 01/10/19 22:00 AZA8449 (Rec: 01/10/19 22:05 KZX2317 TELE-C01) Document 01/11/19 05:45 GPN9696 (Rec: 01/11/19 05:49 BIF8045 TELE-C01) Document 01/11/19 14:00 XFY3998 (Rec: 01/11/19 17:47 RHE8825 TELE-C06) Document 01/11/19 22:00 KAI8425 (Rec: 01/11/19 22:20 MAX4818 TELE-C03) Document 01/12/19 05:55 IOX2785 (Rec: 01/12/19 05:55 PRQ5866 TELE-C09) Document 01/12/19 14:00 YFD7169 (Rec: 01/12/19 14:41 QOP0070 TELE-C11) Eyes: No Scleral Icterus, PERRLA Ears/Nose/Mouth/Throat: NL Teeth, Lips, Gums, Mucous Membranes Moist Neck: NL Appearance and Movements; NL JVP, Trachea Midline Cardiovascular: NL Sounds; No Murmurs; No JVD, RRR Abdominal: NL Sounds; No Tenderness; No Distention Extremities: No Edema, No Clubbing, Cyanosis Neurological: NL Muscle Strength and Tone - Assessment Assessment: 83 yo female with suspected neoplasm hospice eligible depending on the type. - Plan Consult Plan (MU): Hospice Plan: Spoke with pt and her daughter Hanna, both have a good understanding of the possible outcomes of the biopsy. Pt's mother of cancer. When asked about code status pt says she is not able to make a decision and is deferring to her son and daughter. MOLST form was reviewed with pt's daughter she wants to discuss it with her brother. The bigger concern for them is placement after the hospitalization. The daughter is unable to care for her mother 01/04 and they feel they don't have enough money to pay for aides. I mentioned [facility] but pt didn' t like that idea because she has had [facility] before and didn't feel they did much. I discussed home hospice but they felt that wouldn't be enough aide hours either. Pt doesn't want to go to SNF but realizes it might be her only option. Pt is receiving PT in the hospital and may be a candidate for MY and then going home with hospice. Pt and family are interested in applying for medicaid and medicaid yacht hand phone number was given. Also discussed hospice in SNF and at the residence. They like the option of the residence but feel they may not be able to afford it. Hospice brochure was given. Left message for brotherCameron to call me. Pt is eligible for hospice based on her cancer diagnosis and nutritional decline. KPS 40%, PPS 50% - Time On Unit Date of Evaluation: 01/12/19 Hospice Consult Time in: 02:00 Hospice Consult Time Out: 03:30 Hospice Consult Time Total: 90 > 50% of Time Spend In Counseling or Coordinating Care: Yes
[2019-01-12] MEDS: Melatonin 3 MG TAB PO SCH (20:26)
[2019-01-13] MEDS: hydrOXYzine HCL TAB* 25 MG PO PRN ×3 (02:18→20:56)
[2019-01-13] MEDS: Ondansetron INJ* 2 MG/ML VIAL IV PRN (04:29)
[2019-01-13] MEDS: Levothyroxine TAB* 50 MCG TAB PO SCH (05:50)
--- NOTE | 2019-01-13 06:00 | PN ---
Progress Note - Progress Note Date of Service: 01/12/19 SOAP: Subjective: []She has diffuse pain, may be related to sitting in chair and in bed. Has back pain, pain on right wrist. Breathing is fine at rest, SOB with exersion. She has no appetite and some difficulty swallowing. Had had substantial weight loss. Patient interviewed with daughter. Acetaminophen (Tylenol Tab*) 650 mg PO Q6H PRN PRN Reason: PAIN Last Admin: 01/11/19 18:27 Dose: 650 mg Atorvastatin Calcium (Lipitor*) 20 mg PO DAILY [facility] Last Admin: 01/12/19 09:00 Dose: Not Given Calamine/Pramoxine (Caladryl Lotion*) 1 applic TOPICAL QID PRN PRN Reason: skin itching Enoxaparin Sodium (Lovenox(*)) 40 mg SUBCUT Q24H [facility] Last Admin: 01/12/19 07:43 Dose: Not Given Furosemide (Lasix Iv*) 20 mg IV DAILY [facility] Gabapentin (Neurontin Cap(*)) 600 mg PO BID [facility] Last Admin: 01/12/19 20:28 Dose: Not Given Hydrocortisone (Hytone Cream 1%*) 1 applic TOPICAL BID [facility] Last Admin: 01/12/19 20:26 Dose: 1 applic Hydroxyzine HCl (Atarax Tab*) 25 mg PO Q4H PRN PRN Reason: ANXIETY Last Admin: 01/13/19 02:18 Dose: 25 mg Levothyroxine Sodium (Synthroid Tab*) 50 mcg PO 0600 [facility] Last Admin: 01/12/19 07:34 Dose: 50 mcg Magnesium Oxide (Magox 400 Tab*) 400 mg PO BID [facility] Last Admin: 01/12/19 20:26 Dose: 400 mg Melatonin (Melatonin) 3 mg PO BEDTIME [facility] Last Admin: 01/12/19 20:26 Dose: 3 mg Morphine Sulfate (Morphine 4 Mg/Ml Vial (1 Ml)) 2 mg IV Q6H PRN PRN Reason: PAIN Last Admin: 01/12/19 09:10 Dose: 2 mg Ondansetron HCl (Zofran Inj*) 4 mg IV Q8H PRN PRN Reason: NAUSEA Last Admin: 01/13/19 04:29 Dose: 4 mg Pantoprazole Sodium (Protonix Tab*) 40 mg PO DAILY [facility] Last Admin: 01/12/19 09:00 Dose: Not Given Objective: [] Vital Signs Temp Pulse Resp BP Pulse Ox 97.6 F 77 16 124/51 100 01/13/19 03:19 01/13/19 03:19 01/13/19 03:19 01/13/19 03:19 01/13/19 03:19 HEENT:OM moist, no thrush neck w/o LAD LN: + BL axillry, no suraclavicular, auxiliary LN 3 cm and mobile. CTA , decreased BS RRR S1S2 +BS NTND Ext Tr SHIVAM CT scan reviewed and she has a L hilar mass as well as L effusion, LAD, minimal abdominal disease. Possible pathologic fracture. Bx axiillary LN + adenocarcinoma. Assessment: []83 year old with history of multiple medical problems, non smoker, presents with metastatic adenocarcinoma and a lung mass. Full pathology with IHC and molecular stains are pending. Discussed likely diagnosis of metastatic lung cancer. She has a poor performance status and history of dementia, very good family support. Her cancer cannot be cured, there may be treatment. We discussed therapy for lung cancer. Given her history this could be an EGFR positive tumor and if so, oral therapy would be reasonable. She is potentially a candidate for immunotherpy if her oral intake improves and PD-L1 is > 50%. We discussed chemotherapy and agreed the cost in QOL is to great and it would not be given. We also discussed end of life and that hospice may be most appropriate once we have a final diagnosis. Palliative care consult pending. Plan: []1. Will await final pathology report and definitive diagnosis. No further diagnostic studies ordered today. 2. Anorexia. Poor appetite emplaned by malignancy, etiology of mechanical difficulty in eating is unclear. If she has a favorable pathology further evaluation may be warranted to determine severity of functional defect, if Menetrier's disease is possible. 3. Diffuse pain. Can titrate narcotics over time. 4. Code status. Discussed and encouraged DNR/DNI regardless of if her cancer is treated, will talk to her son and decide. 5. Walking with walker, encouraged continued ambulation, PT and try and eat.
[2019-01-13 06:23] LABS: BUN/Creatinine Ratio 17.4 (8-20); Calcium 7.7 mg/dL (8.6-10.3); EGFR African American 98.6 (>60); EGFR Non-African American 81.5 (>60); Magnesium 1.8 mg/dL (1.9-2.7); Potassium 2.9 mmol/L (3.5-5.0)
[2019-01-13] MEDS: Gabapentin CAP(*) 300 MG PO SCH ×2 (08:33→20:27)
[2019-01-13] MEDS: Magnesium Oxide TAB* 400 MG PO SCH ×2 (08:36→20:55)
[2019-01-13] MEDS: Furosemide IV* 10 MG/ML 2 ML VIAL (20 MG) IV SCH (08:47)
[2019-01-13] MEDS: Atorvastatin* 20 MG TAB PO SCH (08:54)
[2019-01-13] MEDS: KCL 20 MEQ/100 ML IVPREMIX* 20 MEQ/100 ML BAG IV SCH ×3 (08:55→17:50)
[2019-01-13] MEDS: Pantoprazole TAB * 40 MG TAB PO SCH (08:56)
[2019-01-13] MEDS: Hydrocortisone 1% CREAM* 30 GM TUBE TOPICAL SCH ×2 (09:00→21:10)
[2019-01-13] MEDS: Enoxaparin(*) 40 MG/0.4 ML SYR SUBCUT SCH (09:01)
[2019-01-13] MEDS: Potassium Chloride* LIQUID 20 MEQ/15 ML UDC PO SCH (09:08)
[2019-01-13] MEDS ORDERED: Senna TAB PO PRN (09:56)
[2019-01-13] MEDS ORDERED: Magnesium Hydroxide LIQ* 30 ML UDC PO PRN (09:56)
[2019-01-13] MEDS ORDERED: Polyethylene Glycol 3350* 17 GM PACKET PO PRN (09:56)
--- NOTE | 2019-01-13 10:50 | PN ---
Subjective Date of Service: 01/13/19 Interval History: Pt feels less anxious today. Breathing is better, although still requires 02. Seen with son Cameron by the bedside Objective Active Medications: Acetaminophen (Tylenol Tab*) 650 mg PO Q6H PRN PRN Reason: PAIN Last Admin: 01/11/19 18:27 Dose: 650 mg Atorvastatin Calcium (Lipitor*) 20 mg PO DAILY [facility] Last Admin: 01/13/19 08:54 Dose: 20 mg Calamine/Pramoxine (Caladryl Lotion*) 1 applic TOPICAL QID PRN PRN Reason: skin itching Docusate Sodium (Colace Cap*) 100 mg PO BID [facility] Enoxaparin Sodium (Lovenox(*)) 40 mg SUBCUT Q24H [facility] Last Admin: 01/13/19 09:01 Dose: 40 mg Furosemide (Lasix Iv*) 20 mg IV DAILY [facility] Last Admin: 01/13/19 08:47 Dose: 20 mg Gabapentin (Neurontin Cap(*)) 600 mg PO BID [facility] Last Admin: 01/13/19 08:33 Dose: Not Given Hydrocortisone (Hytone Cream 1%*) 1 applic TOPICAL BID [facility] Last Admin: 01/13/19 09:00 Dose: 1 applic Hydroxyzine HCl (Atarax Tab*) 25 mg PO Q4H PRN PRN Reason: ANXIETY Last Admin: 01/13/19 08:30 Dose: 25 mg Potassium Chloride (Potassium Chloride 20 Meq/100 Ml Ivpremix*) 20 meq in 100 mls @ 50 mls/hr IV Q2H [facility] Stop: 01/13/19 13:59 Last Admin: 01/13/19 08:55 Dose: 50 mls/hr Levothyroxine Sodium (Synthroid Tab*) 50 mcg PO 0600 [facility] Last Admin: 01/13/19 05:50 Dose: 50 mcg Magnesium Hydroxide (Milk Of Magnesia Liq*) 30 ml PO BID [facility] Magnesium Hydroxide (Milk Of Magnesia Liq*) 30 ml PO BID PRN PRN Reason: CONSTIPATION Magnesium Oxide (Magox 400 Tab*) 400 mg PO BID [facility] Last Admin: 01/13/19 08:36 Dose: 400 mg Melatonin (Melatonin) 3 mg PO BEDTIME [facility] Last Admin: 01/12/19 20:26 Dose: 3 mg Morphine Sulfate (Morphine 4 Mg/Ml Vial (1 Ml)) 2 mg IV Q6H PRN PRN Reason: PAIN Last Admin: 01/12/19 09:10 Dose: 2 mg Ondansetron HCl (Zofran Inj*) 4 mg IV Q8H PRN PRN Reason: NAUSEA Last Admin: 01/13/19 04:29 Dose: 4 mg Pantoprazole Sodium (Protonix Tab*) 40 mg PO DAILY [facility] Last Admin: 01/13/19 08:56 Dose: 40 mg Polyethylene Glycol/Electrolytes (Miralax*) 17 gm PO DAILY PRN PRN Reason: CONSTIPATION Potassium Chloride (Potassium Chloride Liquid) 20 meq PO DAILY [facility] Last Admin: 01/13/19 09:08 Dose: 20 meq Senna (Senokot Tab*) 1 tab PO BEDTIME PRN PRN Reason: CONSTIPATION Vital Signs - 8 hr 01/13/19 01/13/19 03:19 08:33 Temperature 97.6 F Pulse Rate 77 Respiratory 16 18 Rate Blood Pressure 124/51 (mmHg) O2 Sat by Pulse 100 Oximetry Oxygen Devices in Use Now: Nasal Cannula Appearance: 83 yo F in nAD, AAOx2 Eyes: No Scleral Icterus, PERRLA Ears/Nose/Mouth/Throat: NL Teeth, Lips, Gums, Mucous Membranes Moist Neck: NL Appearance and Movements; NL JVP Respiratory: Symmetrical Chest Expansion and Respiratory Effort, - - fine bibasiliar crackles Cardiovascular: NL Sounds; No Murmurs; No JVD Abdominal: NL Sounds; No Tenderness; No Distention Lymphatic: No Cervical Adenopathy Extremities: No Edema Skin: No Rash or Ulcers Neurological: NL Muscle Strength and Tone Result Diagrams: 01/11/19 05:06 01/13/19 05:22 Microbiology and Other Data: Microbiology 01/06/19 09:00 Urine Culture - Final Urine Assess/Plan/Problems-Billing Assessment: This is an 83 year old lady with history of GERD, neuropathy, and nonmelanoma skin cancer who had had poor PO intake and declining functional status over hte past two months who was brought to the ED 01/05 because her family could not get her to eat. - Patient Problems (1) Lung cancer Comment: New dx on 01/10/19-left hilar mass with muliple LN and lymphadenopathy on abd CT noted. Oncology consulted, s/p axillary LN bx on 01/12/19-path pending. Palliative Care consult appreciated. Pt is DNR (2) SOB (shortness of breath) Comment: occured acutely on 01/10/19 resulting in acute hypoxemic resp failure, recurred 01/12/19 due to pulm edema (suspect due to IVF earlier on hospital stay ) and diastolic dysfunction EF noted to be 55% this hosp stay pt treated with a dose of Lasix on 01/10, repeat ed on 01/12/19 . No need for diuretic today in dereck pt with low PO intake. cont to monitor (3) Anorexia Comment: patient admits there is a behavioral component in acting out against her family but emili has a dx of malignancy now-did not tolerate marinol (4) Dementia Comment: MOCA = 14 This is suggestive of severe cognitive impairment Unfortunately we do not have a prior one for comparison MRI brain unremarkable RPR neg, vit B12 level WNL (5) SVT (supraventricular tachycardia) Comment: episode occured 01/06 and resolved spontaneously, no further tele events TTE okay lytes okay TSH elevated but was mistakenly ordered, as she had a normal TSH two days prior- - likely sicu thyroid (6) Hypothyroidism Comment: levothyroxine dose just adjusted earlier this month (7) Full code status Comment: pt is DNR as of 01/12/19 (8) DVT prophylaxis Comment: -lovenox, Status and Disposition: inpatient
[2019-01-13] MEDS: Docusate CAP* 100 MG PO SCH (20:56)
[2019-01-13] MEDS: Melatonin 3 MG TAB PO SCH (20:56)
[2019-01-13] MEDS: Magnesium Hydroxide LIQ* 30 ML UDC PO SCH (20:56)
[2019-01-14 06:12] LABS: BUN/Creatinine Ratio 17.2 (8-20); Calcium 7.3 mg/dL (8.6-10.3); EGFR African American 120.4 (>60); EGFR Non-African American 99.5 (>60); Potassium 3.7 mmol/L (3.5-5.0)
[2019-01-14] MEDS: Levothyroxine TAB* 50 MCG TAB PO SCH (06:18)
[2019-01-14] MEDS: Enoxaparin(*) 40 MG/0.4 ML SYR SUBCUT SCH (06:18)
[2019-01-14] MEDS: Gabapentin CAP(*) 300 MG PO SCH ×2 (08:25→21:41)
[2019-01-14] MEDS: Magnesium Hydroxide LIQ* 30 ML UDC PO SCH ×2 (08:25→21:31)
[2019-01-14] MEDS: Potassium Chloride* LIQUID 20 MEQ/15 ML UDC PO SCH (08:25)
[2019-01-14] MEDS: Hydrocortisone 1% CREAM* 30 GM TUBE TOPICAL SCH ×2 (08:25→21:30)
[2019-01-14] MEDS: Atorvastatin* 20 MG TAB PO SCH (08:27)
[2019-01-14] MEDS: Docusate CAP* 100 MG PO SCH ×2 (08:27→21:29)
[2019-01-14] MEDS: Furosemide IV* 10 MG/ML 2 ML VIAL (20 MG) IV SCH (08:27)
[2019-01-14] MEDS: Pantoprazole TAB * 40 MG TAB PO SCH (08:28)
[2019-01-14] MEDS: Magnesium Oxide TAB* 400 MG PO SCH ×2 (08:28→21:30)
[2019-01-14] MEDS: Acetaminophen TAB* 325 MG PO PRN ×2 (10:50→21:31)
[2019-01-14] MEDS: hydrOXYzine HCL TAB* 25 MG PO PRN (10:51)
--- NOTE | 2019-01-14 13:15 | PN ---
Subjective Date of Service: 01/14/19 Interval History: Pt feels more relaxed today. C/o back pain in lumbar area Objective Active Medications: Acetaminophen (Tylenol Tab*) 650 mg PO Q6H PRN PRN Reason: PAIN Last Admin: 01/14/19 10:50 Dose: 650 mg Atorvastatin Calcium (Lipitor*) 20 mg PO DAILY [facility] Last Admin: 01/14/19 08:27 Dose: 20 mg Calamine/Pramoxine (Caladryl Lotion*) 1 applic TOPICAL QID PRN PRN Reason: skin itching Docusate Sodium (Colace Cap*) 100 mg PO BID [facility] Last Admin: 01/14/19 08:27 Dose: 100 mg Enoxaparin Sodium (Lovenox(*)) 40 mg SUBCUT Q24H [facility] Last Admin: 01/14/19 06:18 Dose: 40 mg Furosemide (Lasix Iv*) 20 mg IV DAILY [facility] Last Admin: 01/14/19 08:27 Dose: 20 mg Gabapentin (Neurontin Cap(*)) 600 mg PO BID [facility] Last Admin: 01/14/19 08:25 Dose: Not Given Hydrocortisone (Hytone Cream 1%*) 1 applic TOPICAL BID [facility] Last Admin: 01/14/19 08:25 Dose: 1 applic Hydroxyzine HCl (Atarax Tab*) 25 mg PO Q4H PRN PRN Reason: ANXIETY Last Admin: 01/14/19 10:51 Dose: 25 mg Levothyroxine Sodium (Synthroid Tab*) 50 mcg PO 0600 [facility] Last Admin: 01/14/19 06:18 Dose: 50 mcg Magnesium Hydroxide (Milk Of Magnesia Liq*) 30 ml PO BID [facility] Last Admin: 01/14/19 08:25 Dose: 30 ml Magnesium Hydroxide (Milk Of Magnesia Liq*) 30 ml PO BID PRN PRN Reason: CONSTIPATION Magnesium Oxide (Magox 400 Tab*) 400 mg PO BID [facility] Last Admin: 01/14/19 08:28 Dose: 400 mg Melatonin (Melatonin) 3 mg PO BEDTIME [facility] Last Admin: 01/13/19 20:56 Dose: 3 mg Morphine Sulfate (Morphine 4 Mg/Ml Vial (1 Ml)) 2 mg IV Q6H PRN PRN Reason: PAIN Last Admin: 01/12/19 09:10 Dose: 2 mg Ondansetron HCl (Zofran Inj*) 4 mg IV Q8H PRN PRN Reason: NAUSEA Last Admin: 01/13/19 04:29 Dose: 4 mg Pantoprazole Sodium (Protonix Tab*) 40 mg PO DAILY [facility] Last Admin: 01/14/19 08:28 Dose: 40 mg Polyethylene Glycol/Electrolytes (Miralax*) 17 gm PO DAILY PRN PRN Reason: CONSTIPATION Potassium Chloride (Potassium Chloride Liquid) 20 meq PO DAILY [facility] Last Admin: 01/14/19 08:25 Dose: 20 meq Senna (Senokot Tab*) 1 tab PO BEDTIME PRN PRN Reason: CONSTIPATION Vital Signs - 8 hr 01/14/19 01/14/19 01/14/19 07:51 08:00 08:25 Temperature Pulse Rate 78 Respiratory 18 16 Rate Blood Pressure 125/65 (mmHg) O2 Sat by Pulse 96 Oximetry 01/14/19 11:15 Temperature 97.6 F Pulse Rate 87 Respiratory 16 Rate Blood Pressure 101/59 (mmHg) O2 Sat by Pulse 98 Oximetry Oxygen Devices in Use Now: Nasal Cannula Appearance: 83 yo F in nAD, AAOx2, poor historian Eyes: No Scleral Icterus, PERRLA Ears/Nose/Mouth/Throat: NL Teeth, Lips, Gums, Mucous Membranes Moist Neck: NL Appearance and Movements; NL JVP, Trachea Midline Respiratory: Symmetrical Chest Expansion and Respiratory Effort, - - faint bibasiliar crackles Abdominal: NL Sounds; No Tenderness; No Distention, No Hepatosplenomegaly Lymphatic: No Cervical Adenopathy Extremities: No Edema, No Clubbing, Cyanosis Skin: No Rash or Ulcers, No Nodules or Sclerosis Neurological: NL Muscle Strength and Tone Result Diagrams: 01/11/19 05:06 01/14/19 05:28 Microbiology and Other Data: Microbiology 01/06/19 09:00 Urine Culture - Final Urine Assess/Plan/Problems-Billing Assessment: This is an 83 year old lady with history of GERD, neuropathy, and nonmelanoma skin cancer who had had poor PO intake and declining functional status over hte past two months who was brought to the ED 01/05 because her family could not get her to eat. - Patient Problems (1) Lung cancer Comment: New dx on 01/10/19-left hilar mass with muliple LN and lymphadenopathy on abd CT noted. Oncology consulted, s/p axillary LN bx on 01/12/19-path pending. Palliative Care consult appreciated. Pt is DNR (2) SOB (shortness of breath) Comment: occured acutely on 01/10/19 resulting in acute hypoxemic resp failure, recurred 01/12/19 due to pulm edema (suspect due to IVF earlier on hospital stay ) and diastolic dysfunction EF noted to be 55% this hosp stay pt treated with a dose of Lasix on 01/10, repeat ed on 01/12/19 . No need for diuretic today in this pt with low PO intake. cont to monitor (3) Anorexia Comment: patient admits there is a behavioral component in acting out against her family but emili has a dx of malignancy now-did not tolerate marinol (4) Dementia Comment: MOCA = 14 This is suggestive of severe cognitive impairment Unfortunately we do not have a prior one for comparison MRI brain unremarkable RPR neg, vit B12 level WNL (5) SVT (supraventricular tachycardia) Comment: episode occured 01/06 and resolved spontaneously, no further tele events TTE okay lytes okay TSH elevated but was mistakenly ordered, as she had a normal TSH two days prior- - likely sicu thyroid (6) Hypothyroidism Comment: levothyroxine dose just adjusted earlier this month (7) Full code status Comment: pt is DNR as of 01/12/19 (8) DVT prophylaxis Comment: -lovenox, Status and Disposition: inpatient
[2019-01-14] MEDS: Lidocaine PATCH 5%* 1 PATCH TRANSDERM SCH (13:29)
[2019-01-14] MEDS ORDERED: LORazepam TAB(*) 0.5 MG PO PRN (13:56)
[2019-01-14] MEDS: Lidocaine Patch REMOVE* 1 NOTE MISC SCH (21:31)
[2019-01-14] MEDS: Melatonin 3 MG TAB PO SCH (21:31)
[2019-01-15] MEDS: Levothyroxine TAB* 50 MCG TAB PO SCH (06:25)
[2019-01-15] MEDS: Enoxaparin(*) 40 MG/0.4 ML SYR SUBCUT SCH (06:25)
[2019-01-15] MEDS: Docusate CAP* 100 MG PO SCH ×2 (07:45→21:02)
[2019-01-15] MEDS: Gabapentin CAP(*) 300 MG PO SCH ×2 (07:45→21:02)
[2019-01-15] MEDS: Magnesium Hydroxide LIQ* 30 ML UDC PO SCH ×2 (07:45→21:02)
[2019-01-15] MEDS: Magnesium Oxide TAB* 400 MG PO SCH ×2 (08:57→20:50)
[2019-01-15] MEDS: Pantoprazole TAB * 40 MG TAB PO SCH (08:57)
[2019-01-15] MEDS: Atorvastatin* 20 MG TAB PO SCH (08:57)
[2019-01-15] MEDS: Potassium Chloride* LIQUID 20 MEQ/15 ML UDC PO SCH (08:57)
[2019-01-15] MEDS: Lidocaine PATCH 5%* 1 PATCH TRANSDERM SCH (08:58)
[2019-01-15] MEDS: Furosemide IV* 10 MG/ML 2 ML VIAL (20 MG) IV SCH (08:58)
[2019-01-15] MEDS: Hydrocortisone 1% CREAM* 30 GM TUBE TOPICAL SCH ×2 (08:58→21:03)
--- NOTE | 2019-01-15 10:17 | PN ---
Subjective Date of Service: 01/15/19 Interval History: Pt feels well, but was very confused and agitated last night after family requested for pt to get Ativan instead of Atarax for anxiety. Today feels OK, still anxious, denies back pain/SOB Objective Active Medications: Acetaminophen (Tylenol Tab*) 650 mg PO Q6H PRN PRN Reason: PAIN Last Admin: 01/14/19 21:31 Dose: 650 mg Atorvastatin Calcium (Lipitor*) 20 mg PO DAILY [facility] Last Admin: 01/15/19 08:57 Dose: 20 mg Calamine/Pramoxine (Caladryl Lotion*) 1 applic TOPICAL QID PRN PRN Reason: skin itching Docusate Sodium (Colace Cap*) 100 mg PO BID [facility] Last Admin: 01/15/19 07:45 Dose: Not Given Enoxaparin Sodium (Lovenox(*)) 40 mg SUBCUT Q24H [facility] Last Admin: 01/15/19 06:25 Dose: 40 mg Furosemide (Lasix Iv*) 20 mg IV DAILY [facility] Last Admin: 01/15/19 08:58 Dose: 20 mg Gabapentin (Neurontin Cap(*)) 600 mg PO BID [facility] Last Admin: 01/15/19 07:45 Dose: Not Given Hydrocortisone (Hytone Cream 1%*) 1 applic TOPICAL BID [facility] Last Admin: 01/15/19 08:58 Dose: 1 applic Levothyroxine Sodium (Synthroid Tab*) 50 mcg PO 0600 [facility] Last Admin: 01/15/19 06:25 Dose: 50 mcg Lidocaine (Lidoderm 5% Patch*) 1 patch TRANSDERM DAILY [facility] Last Admin: 01/15/19 08:58 Dose: 1 patch Lorazepam (Ativan Tab(*)) 0.5 mg PO Q6H PRN PRN Reason: ANXIETY Last Admin: 01/14/19 21:31 Dose: 0.5 mg Magnesium Hydroxide (Milk Of Magnesia Liq*) 30 ml PO BID [facility] Last Admin: 01/15/19 07:45 Dose: Not Given Magnesium Hydroxide (Milk Of Magnesia Liq*) 30 ml PO BID PRN PRN Reason: CONSTIPATION Magnesium Oxide (Magox 400 Tab*) 400 mg PO BID [facility] Last Admin: 01/15/19 08:57 Dose: 400 mg Melatonin (Melatonin) 3 mg PO BEDTIME [facility] Last Admin: 01/14/19 21:31 Dose: 3 mg Morphine Sulfate (Morphine 4 Mg/Ml Vial (1 Ml)) 2 mg IV Q6H PRN PRN Reason: PAIN Last Admin: 01/12/19 09:10 Dose: 2 mg Ondansetron HCl (Zofran Inj*) 4 mg IV Q8H PRN PRN Reason: NAUSEA Last Admin: 01/13/19 04:29 Dose: 4 mg Pantoprazole Sodium (Protonix Tab*) 40 mg PO DAILY [facility] Last Admin: 01/15/19 08:57 Dose: 40 mg Pharmacy Profile Note (Lidocaine Patch Remove*) 1 note N/A 2100 [facility] Last Admin: 01/14/19 21:31 Dose: 1 note Polyethylene Glycol/Electrolytes (Miralax*) 17 gm PO DAILY PRN PRN Reason: CONSTIPATION Potassium Chloride (Potassium Chloride Liquid) 20 meq PO DAILY [facility] Last Admin: 01/15/19 08:57 Dose: 20 meq Senna (Senokot Tab*) 1 tab PO BEDTIME PRN PRN Reason: CONSTIPATION Vital Signs - 8 hr 01/15/19 08:10 Temperature 97.6 F Pulse Rate 77 Respiratory 18 Rate Blood Pressure 113/52 (mmHg) O2 Sat by Pulse 99 Oximetry Oxygen Devices in Use Now: Nasal Cannula Appearance: 83 yo F in nAD, AAOx2 Eyes: No Scleral Icterus, PERRLA Ears/Nose/Mouth/Throat: NL Teeth, Lips, Gums, Mucous Membranes Moist Neck: NL Appearance and Movements; NL JVP, Trachea Midline Respiratory: Symmetrical Chest Expansion and Respiratory Effort, Clear to Auscultation Cardiovascular: NL Sounds; No Murmurs; No JVD, RRR Abdominal: NL Sounds; No Tenderness; No Distention, No Hepatosplenomegaly Lymphatic: No Cervical Adenopathy Extremities: No Edema, No Clubbing, Cyanosis Skin: No Rash or Ulcers, No Nodules or Sclerosis Neurological: NL Muscle Strength and Tone Result Diagrams: 01/11/19 05:06 01/14/19 05:28 Microbiology and Other Data: Microbiology 01/06/19 09:00 Urine Culture - Final Urine Assess/Plan/Problems-Billing Assessment: This is an 83 year old lady with history of GERD, neuropathy, and nonmelanoma skin cancer who had had poor PO intake and declining functional status over hte past two months who was brought to the ED 01/05 because her family could not get her to eat. - Patient Problems (1) Lung cancer Comment: New dx on 01/10/19-left hilar mass with muliple LN and lymphadenopathy on abd CT noted. Oncology consulted, s/p axillary LN bx on 01/12/19-path pending. Palliative Care consult appreciated. Pt is DNR (2) SOB (shortness of breath) Comment: occured acutely on 01/10/19 resulting in acute hypoxemic resp failure, recurred 01/12/19 due to pulm edema (suspect due to IVF earlier on hospital stay ) and diastolic dysfunction EF noted to be 55% this hosp stay pt treated with a dose of Lasix on 01/10, repeated on 01/12/19 . No need for diuretic today in this pt with low PO intake. cont to monitor (3) Anorexia Comment: patient admits there is a behavioral component in acting out against her family but emili has a dx of malignancy now-did not tolerate marinol (4) Dementia Comment: MOCA = 14 This is suggestive of severe cognitive impairment Unfortunately we do not have a prior one for comparison MRI brain unremarkable RPR neg, vit B12 level WNL (5) SVT (supraventricular tachycardia) Comment: episode occured 01/06 and resolved spontaneously, no further tele events TTE okay lytes okay TSH elevated but was mistakenly ordered, as she had a normal TSH two days prior- - likely sicu thyroid (6) Hypothyroidism Comment: levothyroxine dose just adjusted earlier this month (7) Full code status Comment: pt is DNR as of 01/12/19 (8) DVT prophylaxis Comment: -lovenox, (9) Anxiety Comment: chronic, used to be on Ativan at home, now not tolerating it well, cont Atarax prn Status and Disposition: inpatient
[2019-01-15] MEDS: Melatonin 3 MG TAB PO SCH (20:51)
[2019-01-15] MEDS: hydrOXYzine HCL TAB* 25 MG PO PRN (20:51)
[2019-01-15] MEDS: Lidocaine Patch REMOVE* 1 NOTE MISC SCH (21:01)
[2019-01-15] MEDS: Acetaminophen TAB* 325 MG PO PRN (22:15)
[2019-01-16] MEDS: Levothyroxine TAB* 50 MCG TAB PO SCH (05:17)
[2019-01-16] MEDS: hydrOXYzine HCL TAB* 25 MG PO PRN ×2 (06:04→22:27)
[2019-01-16] MEDS: Potassium Chloride* LIQUID 20 MEQ/15 ML UDC PO SCH (09:59)
[2019-01-16] MEDS: Gabapentin CAP(*) 300 MG PO SCH ×2 (10:00→22:31)
[2019-01-16] MEDS: Docusate CAP* 100 MG PO SCH ×2 (10:00→22:31)
[2019-01-16] MEDS: Enoxaparin(*) 40 MG/0.4 ML SYR SUBCUT SCH (10:00)
[2019-01-16] MEDS: Magnesium Oxide TAB* 400 MG PO SCH ×2 (10:01→22:31)
[2019-01-16] MEDS: Hydrocortisone 1% CREAM* 30 GM TUBE TOPICAL SCH ×3 (10:01→22:25)
[2019-01-16] MEDS: Furosemide IV* 10 MG/ML 2 ML VIAL (20 MG) IV SCH (10:01)
[2019-01-16] MEDS: Pantoprazole TAB * 40 MG TAB PO SCH (10:01)
[2019-01-16] MEDS: Atorvastatin* 20 MG TAB PO SCH (10:01)
[2019-01-16] MEDS: Lidocaine PATCH 5%* 1 PATCH TRANSDERM SCH (10:02)
[2019-01-16] MEDS: Magnesium Hydroxide LIQ* 30 ML UDC PO SCH ×2 (10:03→22:31)
--- NOTE | 2019-01-16 19:14 | PN ---
Subjective Date of Service: 01/16/19 Interval History: Patient seen and examined. Appears forgetful, states her back hurts, and talking a lot about not being able to taste food properly and feels very fatigued but denies any other complaints. Objective Active Medications: Acetaminophen (Tylenol Tab*) 650 mg PO Q6H PRN PRN Reason: PAIN Last Admin: 01/15/19 22:15 Dose: 650 mg Atorvastatin Calcium (Lipitor*) 20 mg PO DAILY [facility] Last Admin: 01/16/19 10:01 Dose: 20 mg Calamine/Pramoxine (Caladryl Lotion*) 1 applic TOPICAL QID PRN PRN Reason: skin itching Docusate Sodium (Colace Cap*) 100 mg PO BID [facility] Last Admin: 01/16/19 10:00 Dose: Not Given Enoxaparin Sodium (Lovenox(*)) 40 mg SUBCUT Q24H [facility] Last Admin: 01/16/19 10:00 Dose: 40 mg Furosemide (Lasix Iv*) 20 mg IV DAILY [facility] Last Admin: 01/16/19 10:01 Dose: 20 mg Gabapentin (Neurontin Cap(*)) 600 mg PO BID [facility] Last Admin: 01/16/19 10:00 Dose: Not Given Hydrocortisone (Hytone Cream 1%*) 1 applic TOPICAL BID [facility] Last Admin: 01/16/19 11:43 Dose: 1 applic Hydroxyzine HCl (Atarax Tab*) 25 mg PO Q6H PRN PRN Reason: ANXIETY Last Admin: 01/16/19 06:04 Dose: 25 mg Levothyroxine Sodium (Synthroid Tab*) 50 mcg PO 0600 [facility] Last Admin: 01/16/19 05:17 Dose: 50 mcg Lidocaine (Lidoderm 5% Patch*) 1 patch TRANSDERM DAILY [facility] Last Admin: 01/16/19 10:02 Dose: 1 patch Magnesium Hydroxide (Milk Of Magnesia Liq*) 30 ml PO BID [facility] Last Admin: 01/16/19 10:03 Dose: Not Given Magnesium Hydroxide (Milk Of Magnesia Liq*) 30 ml PO BID PRN PRN Reason: CONSTIPATION Magnesium Oxide (Magox 400 Tab*) 400 mg PO BID [facility] Last Admin: 01/16/19 10:01 Dose: 400 mg Melatonin (Melatonin) 3 mg PO BEDTIME [facility] Last Admin: 05/09/19 20:51 Dose: 3 mg Morphine Sulfate (Morphine 4 Mg/Ml Vial (1 Ml)) 2 mg IV Q6H PRN PRN Reason: PAIN Last Admin: 01/12/19 09:10 Dose: 2 mg Ondansetron HCl (Zofran Inj*) 4 mg IV Q8H PRN PRN Reason: NAUSEA Last Admin: 01/13/19 04:29 Dose: 4 mg Pantoprazole Sodium (Protonix Tab*) 40 mg PO DAILY [facility] Last Admin: 01/16/19 10:01 Dose: 40 mg Pharmacy Profile Note (Lidocaine Patch Remove*) 1 note N/A 2100 [facility] Last Admin: 01/15/19 21:01 Dose: 1 note Polyethylene Glycol/Electrolytes (Miralax*) 17 gm PO DAILY PRN PRN Reason: CONSTIPATION Potassium Chloride (Potassium Chloride Liquid) 20 meq PO DAILY [facility] Last Admin: 01/16/19 09:59 Dose: 20 meq Senna (Senokot Tab*) 1 tab PO BEDTIME PRN PRN Reason: CONSTIPATION Vital Signs - 8 hr 01/16/19 15:55 Temperature 97.5 F Pulse Rate 86 Respiratory 16 Rate Blood Pressure 103/44 (mmHg) O2 Sat by Pulse 100 Oximetry Oxygen Devices in Use Now: Nasal Cannula Appearance: alert, appears fatigued and frail Eyes: No Scleral Icterus, PERRLA Ears/Nose/Mouth/Throat: NL Teeth, Lips, Gums, Mucous Membranes Moist Neck: NL Appearance and Movements; NL JVP, Trachea Midline Respiratory: Symmetrical Chest Expansion and Respiratory Effort, Clear to Auscultation Cardiovascular: NL Sounds; No Murmurs; No JVD, RRR, No Edema Abdominal: NL Sounds; No Tenderness; No Distention Extremities: No Edema, No Clubbing, Cyanosis Skin: No Rash or Ulcers Neurological: Alert and Oriented x 3, - - general weakness Nutrition: Taking PO's Result Diagrams: 01/11/19 05:06 01/14/19 05:28 Microbiology and Other Data: Microbiology 01/06/19 09:00 Urine Culture - Final Urine Diagnostic Imaging: [facility] Patient Name:CALIXTO MAN MR: [id number] : 1935 IMPRESSION: 1. No pulmonary emboli. 2. Suspected primary lung neoplasm left hilum (T2b) with contralateral lymph nodes (N3) and associated pleural effusion, extrathoracic lymph nodes, and possible metastatic pathologic fracture of T6 (M1c). 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 Recommend biopsy of the primary lesion likely via bronchoscopy. Assess/Plan/Problems-Billing Assessment: This is an 83 year old lady with history of GERD, neuropathy, and nonmelanoma skin cancer who had had poor PO intake and declining functional status over hte past two months who was brought to the ED 01/05 because her family could not get her to eat. - Patient Problems (1) B-cell lymphoma Code(s): C85.10 - UNSPECIFIED B-CELL LYMPHOMA, UNSPECIFIED SITE SNOMED Code(s) : 070571763 Comment: - Final pathology obtained today showing large B cell - Oncology consult appreciated - Plan for diagnostic LP and bone marrow biopsy on Saturday in preparation for initiating treatment (2) Anorexia Code(s): R63.0 - ANOREXIA SNOMED Code(s): 97091103 Comment: - combination of behavioral component and malignancy - Nutrition consultation - Did not tolerate marinol (3) Anxiety Code(s): F41.9 - ANXIETY DISORDER, UNSPECIFIED SNOMED Code(s): 16329364 Comment: - Atarax PRN (4) Dementia Code(s): F03.90 - UNSPECIFIED DEMENTIA WITHOUT BEHAVIORAL DISTURBANCE SNOMED Code(s): 98861541 Comment: - MOCA = 14, suggestive of severe cognitive impairment with no prior for comparison - MRI brain unremarkable - RPR neg, vit B12 level WNL (5) SOB (shortness of breath) Code(s): R06.02 - SHORTNESS OF BREATH SNOMED Code(s): 319401761 Comment: - Acute hypoxemic resp failure on 01/10, recurred due to pulm edema ( suspect due to IVF earlier on hospital stay ) and diastolic dysfunction - EF noted to be 55% this hosp stay - Responded well to diuresis, euvolemic today - Wean O2 as tolerated (6) Protein-calorie malnutrition, moderate Code(s): E44.0 - MODERATE PROTEIN-CALORIE MALNUTRITION SNOMED Code(s): 927591053 Comment: - In setting of malignancy and poor intake - Nutrition following (7) DNR (do not resuscitate) Status and Disposition: Inpatient, likely DC after LP and biopsy nest week, plan for STR and initiation of chemo.
[2019-01-16] MEDS: Lidocaine Patch REMOVE* 1 NOTE MISC SCH (22:23)
[2019-01-16] MEDS: Acetaminophen TAB* 325 MG PO PRN (22:25)
[2019-01-16] MEDS: Melatonin 3 MG TAB PO SCH (22:31)
[2019-01-17] MEDS ORDERED: LORazepam TAB(*) 0.5 MG PO ONE (01:45)
[2019-01-17] MEDS ORDERED: Insulin IVPB 100 units/100 ml 100 UNITS/100 ML UNIT IVPB SCH (02:00)
[2019-01-17] MEDS: Morphine 4 MG/ML VIAL (1 ml) 4 MG/ML VIAL IV PRN ×2 (02:07→20:46)
[2019-01-17] MEDS: Levothyroxine TAB* 50 MCG TAB PO SCH (05:45)
[2019-01-17] MEDS: Potassium Chloride* LIQUID 20 MEQ/15 ML UDC PO SCH ×2 (09:05→09:20)
[2019-01-17] MEDS: Gabapentin CAP(*) 300 MG PO SCH ×3 (09:06→21:00)
[2019-01-17] MEDS: Pantoprazole TAB * 40 MG TAB PO SCH (09:06)
[2019-01-17] MEDS: Atorvastatin* 20 MG TAB PO SCH (09:07)
[2019-01-17] MEDS: Magnesium Oxide TAB* 400 MG PO SCH ×2 (09:07→20:46)
[2019-01-17] MEDS: Magnesium Hydroxide LIQ* 30 ML UDC PO SCH ×2 (09:08→20:47)
[2019-01-17] MEDS: Lidocaine PATCH 5%* 1 PATCH TRANSDERM SCH (09:09)
[2019-01-17] MEDS: Docusate CAP* 100 MG PO SCH ×2 (09:10→20:46)
[2019-01-17] MEDS: Furosemide IV* 10 MG/ML 2 ML VIAL (20 MG) IV SCH (09:10)
[2019-01-17] MEDS: Enoxaparin(*) 40 MG/0.4 ML SYR SUBCUT SCH (09:10)
[2019-01-17] MEDS: Hydrocortisone 1% CREAM* 30 GM TUBE TOPICAL SCH ×2 (09:11→20:55)
[2019-01-17] MEDS: Acetaminophen TAB* 325 MG PO PRN (09:30)
[2019-01-17] MEDS: hydrOXYzine HCL TAB* 25 MG PO PRN (09:30)
[2019-01-17] MEDS ORDERED: NS 0.9% 1000 ML** 1,000 ML IV ONE (11:41)
[2019-01-17 12:02] LABS: ABS Basophils 0.1 10^3/ul (0-0.2); ABS Eosinophils 1.4 10^3/ul (0-0.6); ABS Lymphocytes 0.5 10^3/ul (1.0-4.8); ABS Monocytes 0.7 10^3/ul (0-0.8); ABS Neutrophils 7.5 10^3/ul (1.5-7.7); Eosinophil % 14.1 %; Hematocrit 34 % (35-47); Hemoglobin 11.2 g/dL (12.0-16.0); Lymphocyte % 4.9 %; Mean Corpuscular HGB Conc 33 g/dL (31-36); Mean Corpuscular Hemoglobin 29 pg (27-31); Mean Corpuscular Volume 89 fL (80-97); Platelet Count 264 10^3/uL (150-450); Red Blood Count 3.82 10^6 /uL (3.70-4.87); Red Cell Distribution Width 20 % (10.5-15); White Blood Count 10.2 10^3/uL (3.5-10.8)
[2019-01-17 12:23] LABS: Albumin 2.5 g/dL (3.2-5.2); Albumin/Globulin Ratio 0.9 (1-3); BUN/Creatinine Ratio 16.7 (8-20); Calcium 7.9 mg/dL (8.6-10.3); EGFR African American 85.6 (>60); EGFR Non-African American 70.7 (>60); Globulin 2.8 g/dL (2-4); Potassium 3.2 mmol/L (3.5-5.0); Total Bilirubin 0.7 mg/dL (0.2-1.0); Total Protein 5.3 g/dL (6.4-8.9)
[2019-01-17] MEDS ORDERED: Potassium Chlor TAB* 20 MEQ TAB.ER PO ONE (13:16)
--- NOTE | 2019-01-17 19:03 | PN ---
Subjective Date of Service: 01/17/19 Interval History: Patient seen and examined. No acute overnight events. Patient remains intermittently confused. No SOB, no chest pain, states she thinks her appetite is "better" but can't quantify by how much. Objective Active Medications: Acetaminophen (Tylenol Tab*) 650 mg PO Q6H PRN PRN Reason: PAIN Last Admin: 01/17/19 09:30 Dose: 650 mg Atorvastatin Calcium (Lipitor*) 20 mg PO DAILY [facility] Last Admin: 01/17/19 09:07 Dose: 20 mg Calamine/Pramoxine (Caladryl Lotion*) 1 applic TOPICAL QID PRN PRN Reason: skin itching Docusate Sodium (Colace Cap*) 100 mg PO BID [facility] Last Admin: 01/17/19 09:10 Dose: Not Given Enoxaparin Sodium (Lovenox(*)) 40 mg SUBCUT Q24HR [facility] Furosemide (Lasix Iv*) 20 mg IV DAILY [facility] Last Admin: 01/17/19 09:10 Dose: 20 mg Gabapentin (Neurontin Cap(*)) 600 mg PO BID [facility] Last Admin: 01/17/19 09:06 Dose: Not Given Hydrocortisone (Hytone Cream 1%*) 1 applic TOPICAL BID [facility] Last Admin: 01/17/19 09:11 Dose: 1 applic Hydroxyzine HCl (Atarax Tab*) 25 mg PO Q6H PRN PRN Reason: ANXIETY Last Admin: 01/17/19 09:30 Dose: 25 mg Levothyroxine Sodium (Synthroid Tab*) 50 mcg PO 0600 [facility] Last Admin: 01/17/19 05:45 Dose: 50 mcg Lidocaine (Lidoderm 5% Patch*) 1 patch TRANSDERM DAILY [facility] Last Admin: 01/17/19 09:09 Dose: 1 patch Magnesium Hydroxide (Milk Of Magnesia Liq*) 30 ml PO BID [facility] Last Admin: 01/17/19 09:08 Dose: Not Given Magnesium Hydroxide (Milk Of Magnesia Liq*) 30 ml PO BID PRN PRN Reason: CONSTIPATION Magnesium Oxide (Magox 400 Tab*) 400 mg PO BID [facility] Last Admin: 01/17/19 09:07 Dose: 400 mg Melatonin (Melatonin) 3 mg PO BEDTIME [facility] Last Admin: 01/16/19 22:31 Dose: 3 mg Morphine Sulfate (Morphine 4 Mg/Ml Vial (1 Ml)) 2 mg IV Q6H PRN PRN Reason: PAIN Last Admin: 01/17/19 02:07 Dose: 2 mg Ondansetron HCl (Zofran Inj*) 4 mg IV Q8H PRN PRN Reason: NAUSEA Last Admin: 01/13/19 04:29 Dose: 4 mg Pantoprazole Sodium (Protonix Tab*) 40 mg PO DAILY [facility] Last Admin: 01/17/19 09:06 Dose: 40 mg Pharmacy Profile Note (Lidocaine Patch Remove*) 1 note N/A 2100 [facility] Last Admin: 01/16/19 22:23 Dose: 1 note Polyethylene Glycol/Electrolytes (Miralax*) 17 gm PO DAILY PRN PRN Reason: CONSTIPATION Potassium Chloride (Potassium Chloride Liquid) 20 meq PO DAILY [facility] Last Admin: 01/17/19 09:20 Dose: Not Given Senna (Senokot Tab*) 1 tab PO BEDTIME PRN PRN Reason: CONSTIPATION Vital Signs - 8 hr 01/17/19 01/17/19 01/17/19 11:16 11:35 15:07 Temperature 97.6 F 97.7 F Pulse Rate 89 79 Respiratory 16 18 Rate Blood Pressure 89/51 84/54 108/57 (mmHg) O2 Sat by Pulse 100 100 Oximetry Oxygen Devices in Use Now: Nasal Cannula Appearance: alert, NAD Eyes: No Scleral Icterus, PERRLA Ears/Nose/Mouth/Throat: NL Teeth, Lips, Gums, Mucous Membranes Moist Neck: NL Appearance and Movements; NL JVP, Trachea Midline Respiratory: Symmetrical Chest Expansion and Respiratory Effort, Clear to Auscultation Cardiovascular: NL Sounds; No Murmurs; No JVD Abdominal: NL Sounds; No Tenderness; No Distention Extremities: No Edema, No Clubbing, Cyanosis Skin: No Nodules or Sclerosis Neurological: - - A&Ox2, forgetful Lines/Tubes/Other Access: Clean, Dry and Intact [place] Nutrition: Taking PO's, - - poor intake Result Diagrams: 01/17/19 11:49 01/17/19 11:49 Microbiology and Other Data: Microbiology 01/06/19 09:00 Urine Culture - Final Urine Diagnostic Imaging: [facility] Patient Name:CALIXTO MAN MR: [id number] : 1935 IMPRESSION: 1. No pulmonary emboli. 2. Suspected primary lung neoplasm left hilum (T2b) with contralateral lymph nodes (N3) and associated pleural effusion, extrathoracic lymph nodes, and possible metastatic pathologic fracture of T6 (M1c). 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 Recommend biopsy of the primary lesion likely via bronchoscopy. Assess/Plan/Problems-Billing Assessment: This is an 83 year old lady with history of GERD, neuropathy, and nonmelanoma skin cancer who had had poor PO intake and declining functional status over hte past two months who was brought to the ED 01/05 because her family could not get her to eat. - Patient Problems (1) B-cell lymphoma Code(s): C85.10 - UNSPECIFIED B-CELL LYMPHOMA, UNSPECIFIED SITE SNOMED Code(s) : 884500948 Comment: - Final pathology obtained with large B cell lymphoma - Oncology following - Plan for diagnostic LP and bone marrow biopsy on Saturday in preparation for initiating treatment (2) Anorexia Code(s): R63.0 - ANOREXIA SNOMED Code(s): 42455397 Comment: - combination of behavioral component and malignancy - Nutrition consultation - Did not tolerate marinol - Continue supplements and supportive care (3) Anxiety Code(s): F41.9 - ANXIETY DISORDER, UNSPECIFIED SNOMED Code(s): 37491569 Comment: - Atarax PRN - Needed ativan overnight, will continue very low dose PRN, Q8H (4) Dementia Code(s): F03.90 - UNSPECIFIED DEMENTIA WITHOUT BEHAVIORAL DISTURBANCE SNOMED Code(s): 65544866 Comment: - MOCA = 14, suggestive of severe cognitive impairment with no prior for comparison - MRI brain unremarkable - RPR neg, vit B12 level WNL (5) SOB (shortness of breath) Code(s): R06.02 - SHORTNESS OF BREATH SNOMED Code(s): 122646555 Comment: - Acute hypoxemic resp failure on 01/10, recurred due to pulm edema ( suspect due to IVF earlier on hospital stay ) and diastolic dysfunction - EF noted to be 55% this hosp stay - Responded well to diuresis, euvolemic today - Wean O2 as tolerated - Get RA sats tomorrow (6) Protein-calorie malnutrition, moderate Code(s): E44.0 - MODERATE PROTEIN-CALORIE MALNUTRITION SNOMED Code(s): 656871680 Comment: - In setting of malignancy and poor intake - Nutrition following (7) DNR (do not resuscitate) Status and Disposition: Inpatient, likely DC after LP and biopsy nest week, plan for STR and initiation of chemo.
[2019-01-17] MEDS: Melatonin 3 MG TAB PO SCH (20:46)
[2019-01-17] MEDS: LORazepam TAB(*) 0.5 MG PO PRN (20:46)
[2019-01-17] MEDS: Lidocaine Patch REMOVE* 1 NOTE MISC SCH (20:55)
[2019-01-18] MEDS: Levothyroxine TAB* 50 MCG TAB PO SCH (05:38)
[2019-01-18] MEDS: Enoxaparin(*) 40 MG/0.4 ML SYR SUBCUT SCH (07:08)
[2019-01-18] MEDS: Lidocaine PATCH 5%* 1 PATCH TRANSDERM SCH (09:22)
[2019-01-18] MEDS: Acetaminophen TAB* 325 MG PO PRN ×2 (09:23→20:28)
[2019-01-18] MEDS: Magnesium Oxide TAB* 400 MG PO SCH ×2 (09:23→23:23)
[2019-01-18] MEDS: hydrOXYzine HCL TAB* 25 MG PO PRN (09:23)
[2019-01-18] MEDS: Pantoprazole TAB * 40 MG TAB PO SCH (09:24)
[2019-01-18] MEDS: Furosemide IV* 10 MG/ML 2 ML VIAL (20 MG) IV SCH ×2 (09:24→14:39)
[2019-01-18] MEDS: Atorvastatin* 20 MG TAB PO SCH (09:24)
[2019-01-18] MEDS: Gabapentin CAP(*) 300 MG PO SCH ×2 (09:24→23:18)
[2019-01-18] MEDS: Hydrocortisone 1% CREAM* 30 GM TUBE TOPICAL SCH ×2 (09:24→23:40)
[2019-01-18] MEDS: Potassium Chloride* LIQUID 20 MEQ/15 ML UDC PO SCH (09:25)
[2019-01-18] MEDS: Docusate CAP* 100 MG PO SCH ×2 (09:25→23:18)
[2019-01-18] MEDS: Magnesium Hydroxide LIQ* 30 ML UDC PO SCH ×2 (09:25→23:21)
[2019-01-18] MEDS: NS 0.9% w/ 40 Meq KCL 1000 ML* 1,000 ML IV SCH (09:48)
[2019-01-18] MEDS ORDERED: Potassium Chloride* LIQUID 20 MEQ/15 ML UDC PO ONE (13:15)
[2019-01-18] MEDS ORDERED: Potassium Chlor TAB* 20 MEQ TAB.ER PO ONE (13:28)
--- NOTE | 2019-01-18 15:53 | PN ---
Subjective Date of Service: 01/18/19 Interval History: Patient seen and examined. OOB to chair, appears more upbeat today. States she feels more positive about starting treatment. States pain in her low back is tolerable , denies SOB, no chest pain, no n/v. No fevers. Objective Active Medications: Acetaminophen (Tylenol Tab*) 650 mg PO Q6H PRN PRN Reason: PAIN Last Admin: 01/18/19 09:23 Dose: 650 mg Atorvastatin Calcium (Lipitor*) 20 mg PO DAILY [facility] Last Admin: 01/18/19 09:24 Dose: 20 mg Calamine/Pramoxine (Caladryl Lotion*) 1 applic TOPICAL QID PRN PRN Reason: skin itching Docusate Sodium (Colace Cap*) 100 mg PO BID [facility] Last Admin: 01/18/19 09:25 Dose: Not Given Enoxaparin Sodium (Lovenox(*)) 40 mg SUBCUT Q24HR [facility] Last Admin: 01/18/19 07:08 Dose: Not Given Furosemide (Lasix Iv*) 20 mg IV DAILY [facility] Last Admin: 01/18/19 14:39 Dose: Not Given Gabapentin (Neurontin Cap(*)) 600 mg PO BID [facility] Last Admin: 01/18/19 09:24 Dose: Not Given Hydrocortisone (Hytone Cream 1%*) 1 applic TOPICAL BID [facility] Last Admin: 01/18/19 09:24 Dose: 1 applic Hydroxyzine HCl (Atarax Tab*) 25 mg PO Q6H PRN PRN Reason: ANXIETY Last Admin: 01/18/19 09:23 Dose: 25 mg Potassium Chloride/Sodium Chloride (Ns 0.9% W/ 40 Meq Kcl 1000 Ml*) 1,000 mls @ 75 mls/hr IV PER RATE [facility] Levothyroxine Sodium (Synthroid Tab*) 50 mcg PO 0600 [facility] Last Admin: 01/18/19 05:38 Dose: 50 mcg Lidocaine (Lidoderm 5% Patch*) 1 patch TRANSDERM DAILY [facility] Last Admin: 01/18/19 09:22 Dose: 1 patch Lorazepam (Ativan Tab(*)) 0.25 mg PO Q8H PRN PRN Reason: ANXIETY Last Admin: 01/17/19 20:46 Dose: 0.25 mg Magnesium Hydroxide (Milk Of Magnesia Liq*) 30 ml PO BID [facility] Last Admin: 01/18/19 09:25 Dose: Not Given Magnesium Hydroxide (Milk Of Magnesia Liq*) 30 ml PO BID PRN PRN Reason: CONSTIPATION Magnesium Oxide (Magox 400 Tab*) 400 mg PO BID [facility] Last Admin: 01/18/19 09:23 Dose: 400 mg Melatonin (Melatonin) 3 mg PO BEDTIME [facility] Last Admin: 01/17/19 20:46 Dose: 3 mg Morphine Sulfate (Morphine 4 Mg/Ml Vial (1 Ml)) 2 mg IV Q6H PRN PRN Reason: PAIN Last Admin: 01/17/19 20:46 Dose: 2 mg Ondansetron HCl (Zofran Inj*) 4 mg IV Q8H PRN PRN Reason: NAUSEA Last Admin: 01/13/19 04:29 Dose: 4 mg Pantoprazole Sodium (Protonix Tab*) 40 mg PO DAILY [facility] Last Admin: 01/18/19 09:24 Dose: 40 mg Pharmacy Profile Note (Lidocaine Patch Remove*) 1 note N/A 2100 [facility] Last Admin: 01/17/19 20:55 Dose: 1 note Polyethylene Glycol/Electrolytes (Miralax*) 17 gm PO DAILY PRN PRN Reason: CONSTIPATION Potassium Chloride (Klor Con Er Tab*) 20 meq PO DAILY [facility] Senna (Senokot Tab*) 1 tab PO BEDTIME PRN PRN Reason: CONSTIPATION Vital Signs - 8 hr 01/18/19 01/18/19 08:00 11:36 Temperature 97.3 F Pulse Rate 82 Respiratory 16 16 Rate Blood Pressure 114/65 (mmHg) O2 Sat by Pulse 100 Oximetry Oxygen Devices in Use Now: Nasal Cannula Appearance: alert, NAD Eyes: No Scleral Icterus, PERRLA Ears/Nose/Mouth/Throat: NL Teeth, Lips, Gums, Mucous Membranes Moist Neck: NL Appearance and Movements; NL JVP, Trachea Midline Respiratory: Symmetrical Chest Expansion and Respiratory Effort, Clear to Auscultation Cardiovascular: NL Sounds; No Murmurs; No JVD, No Edema Abdominal: NL Sounds; No Tenderness; No Distention Extremities: No Edema, No Clubbing, Cyanosis Skin: No Rash or Ulcers Neurological: Alert and Oriented x 3 Nutrition: Taking PO's Result Diagrams: 01/19/19 07:10 01/19/19 07:10 Microbiology and Other Data: Microbiology 01/06/19 09:00 Urine Culture - Final Urine Diagnostic Imaging: [facility] Patient Name:CALIXTO MAN MR: [id number] : 1935 IMPRESSION: 1. No pulmonary emboli. 2. Suspected primary lung neoplasm left hilum (T2b) with contralateral lymph nodes (N3) and associated pleural effusion, extrathoracic lymph nodes, and possible metastatic pathologic fracture of T6 (M1c). 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 Recommend biopsy of the primary lesion likely via bronchoscopy. Assess/Plan/Problems-Billing Assessment: This is an 83 year old lady with history of GERD, neuropathy, and nonmelanoma skin cancer who had had poor PO intake and declining functional status over hte past two months who was brought to the ED 01/05 because her family could not get her to eat. 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 - Oncology following - Plan for diagnostic LP and bone marrow biopsy on Saturday in preparation for initiating treatment - Holding DVT prophy in anticipation of diagnostics tomorrow (2) Anorexia Code(s): R63.0 - ANOREXIA SNOMED Code(s): 33891581 Comment: - combination of behavioral component and malignancy - Nutrition consultation - Did not tolerate marinol - Continue supplements and supportive care - Replete lytes, potassium low (3) Anxiety Code(s): F41.9 - ANXIETY DISORDER, UNSPECIFIED SNOMED Code(s): 51490811 Comment: - Atarax PRN - Needed ativan overnight, will continue very low dose PRN, Q8H (4) Dementia Code(s): F03.90 - UNSPECIFIED DEMENTIA WITHOUT BEHAVIORAL DISTURBANCE SNOMED Code(s): 93996212 Comment: - MOCA = 14, suggestive of severe cognitive impairment with no prior for comparison - MRI brain unremarkable - RPR neg, vit B12 level WNL - Seems more appropriate behaviorally today (5) SOB (shortness of breath) Code(s): R06.02 - SHORTNESS OF BREATH SNOMED Code(s): 494493160 Comment: - Acute hypoxemic resp failure on 01/10, recurred 5/6/1 due to pulm edema ( suspect due to IVF earlier on hospital stay ) and diastolic dysfunction - Responded well to diuresis, euvolemic today - Ambulated with walker today, will try to wean O2 (6) Protein-calorie malnutrition, moderate Code(s): E44.0 - MODERATE PROTEIN-CALORIE MALNUTRITION SNOMED Code(s): 438023240 Comment: - In setting of malignancy and poor intake - Nutrition following (7) DNR (do not resuscitate) Status and Disposition: Inpatient, likely DC after LP and biopsy nest week, plan for STR and initiation of chemo.
[2019-01-18] MEDS: Lidocaine Patch REMOVE* 1 NOTE MISC SCH (23:21)
[2019-01-18] MEDS: Melatonin 3 MG TAB PO SCH (23:22)
[2019-01-19] MEDS: Levothyroxine TAB* 50 MCG TAB PO SCH (06:52)
[2019-01-19 07:34] LABS: Hematocrit 32 % (35-47); Hemoglobin 10.4 g/dL (12.0-16.0); Mean Corpuscular HGB Conc 32 g/dL (31-36); Mean Corpuscular Hemoglobin 29 pg (27-31); Mean Corpuscular Volume 91 fL (80-97); Platelet Count 223 10^3/uL (150-450); Red Blood Count 3.55 10^6 /uL (3.70-4.87); Red Cell Distribution Width 20 % (10.5-15); White Blood Count 10.5 10^3/uL (3.5-10.8)
[2019-01-19 07:40] LABS: INR 1.07 (0.82-1.09)
[2019-01-19 07:48] LABS: BUN/Creatinine Ratio 15.7 (8-20); Calcium 7.8 mg/dL (8.6-10.3); EGFR African American 96.9 (>60); EGFR Non-African American 80.1 (>60); Potassium 3.9 mmol/L (3.5-5.0)
[2019-01-19] MEDS: Atorvastatin* 20 MG TAB PO SCH (09:12)
[2019-01-19] MEDS: Lidocaine PATCH 5%* 1 PATCH TRANSDERM SCH (09:12)
[2019-01-19] MEDS: Pantoprazole TAB * 40 MG TAB PO SCH (09:12)
[2019-01-19] MEDS: Potassium Chlor TAB* 20 MEQ TAB.ER PO SCH ×2 (09:13→09:31)
[2019-01-19] MEDS: Magnesium Hydroxide LIQ* 30 ML UDC PO SCH ×2 (09:13→22:03)
[2019-01-19] MEDS: Gabapentin CAP(*) 300 MG PO SCH ×2 (09:13→22:02)
[2019-01-19] MEDS: Magnesium Oxide TAB* 400 MG PO SCH ×2 (09:13→22:03)
[2019-01-19] MEDS: Docusate CAP* 100 MG PO SCH ×2 (09:13→22:02)
[2019-01-19] MEDS: Enoxaparin(*) 40 MG/0.4 ML SYR SUBCUT SCH (09:13)
[2019-01-19] MEDS: Hydrocortisone 1% CREAM* 30 GM TUBE TOPICAL SCH ×2 (09:16→22:15)
[2019-01-19] MEDS: hydrOXYzine HCL TAB* 25 MG PO PRN ×3 (09:24→22:56)
--- NOTE | 2019-01-19 10:41 | PN ---
Progress Note - Progress Note Date of Service: 01/19/19 SOAP: Subjective: []Overall doing well and with positive affect. She is looking forward to going to rehab. She is concerned about small rash on hand, not in pain. She is eating well. Understands will have tests done today and is planning treatment for her lymphoma. Deferential to her children for planning. Acetaminophen (Tylenol Tab*) 650 mg PO Q6H PRN PRN Reason: PAIN Last Admin: 01/18/19 20:28 Dose: 650 mg Atorvastatin Calcium (Lipitor*) 20 mg PO DAILY [facility] Last Admin: 01/19/19 09:12 Dose: 20 mg Calamine/Pramoxine (Caladryl Lotion*) 1 applic TOPICAL QID PRN PRN Reason: skin itching Docusate Sodium (Colace Cap*) 100 mg PO BID [facility] Last Admin: 01/19/19 09:13 Dose: Not Given Enoxaparin Sodium (Lovenox(*)) 40 mg SUBCUT Q24HR [facility] Last Admin: 01/19/19 09:13 Dose: Not Given Furosemide (Lasix Iv*) 20 mg IV DAILY [facility] Last Admin: 01/18/19 14:39 Dose: Not Given Gabapentin (Neurontin Cap(*)) 600 mg PO BID [facility] Last Admin: 01/19/19 09:13 Dose: Not Given Hydrocortisone (Hytone Cream 1%*) 1 applic TOPICAL BID [facility] Last Admin: 01/19/19 09:16 Dose: 1 applic Hydroxyzine HCl (Atarax Tab*) 25 mg PO Q6H PRN PRN Reason: ANXIETY Last Admin: 01/19/19 09:24 Dose: 25 mg Potassium Chloride/Sodium Chloride (Ns 0.9% W/ 40 Meq Kcl 1000 Ml*) 1,000 mls @ 75 mls/hr IV PER RATE [facility] Levothyroxine Sodium (Synthroid Tab*) 50 mcg PO 0600 [facility] Last Admin: 01/19/19 06:52 Dose: 50 mcg Lidocaine (Lidoderm 5% Patch*) 1 patch TRANSDERM DAILY [facility] Last Admin: 01/19/19 09:12 Dose: 1 patch Lorazepam (Ativan Tab(*)) 0.25 mg PO Q8H PRN PRN Reason: ANXIETY Last Admin: 01/19/19 00:00 Dose: 0.25 mg Magnesium Hydroxide (Milk Of Magnesia Liq*) 30 ml PO BID [facility] Last Admin: 01/19/19 09:13 Dose: Not Given Magnesium Hydroxide (Milk Of Magnesia Liq*) 30 ml PO BID PRN PRN Reason: CONSTIPATION Magnesium Oxide (Magox 400 Tab*) 400 mg PO BID [facility] Last Admin: 01/19/19 09:13 Dose: Not Given Melatonin (Melatonin) 3 mg PO BEDTIME [facility] Last Admin: 01/18/19 23:22 Dose: 3 mg Ondansetron HCl (Zofran Inj*) 4 mg IV Q8H PRN PRN Reason: NAUSEA Last Admin: 01/13/19 04:29 Dose: 4 mg Pantoprazole Sodium (Protonix Tab*) 40 mg PO DAILY [facility] Last Admin: 01/19/19 09:12 Dose: 40 mg Pharmacy Profile Note (Lidocaine Patch Remove*) 1 note N/A 2100 [facility] Last Admin: 01/18/19 23:21 Dose: 1 note Polyethylene Glycol/Electrolytes (Miralax*) 17 gm PO DAILY PRN PRN Reason: CONSTIPATION Potassium Chloride (Klor Con Er Tab*) 20 meq PO DAILY [facility] Last Admin: 01/19/19 09:31 Dose: Not Given Senna (Senokot Tab*) 1 tab PO BEDTIME PRN PRN Reason: CONSTIPATION Objective: [] Vital Signs Temp Pulse Resp BP Pulse Ox 96.9 F 73 16 135/62 100 01/19/19 03:41 01/19/19 03:41 01/19/19 03:41 01/19/19 03:41 01/19/19 03:41 HEENT - pale, no LAD LN: + R auxiliary LAD > L side decreased BS, no wheezing. RRR S1S2 +BS, NT ND Echo EF 55% w/o significant valvular disease. Assessment: []83 year old with new diagnosis of DLBCL, germinal center type, BCL-2 and 6 positive with high Ki-67 and c-myc pending. Completing evaluation this week with planed chemotherapy on discharge. Clinically has been improving during hospitalization. Plan: []1. Will plan BmBx today and LP can be done in hospital or after discharge on day 1 of chemotherapy with 1st IT MTX. 2. Planning discharge to sub-acute CT. 3. Will continue close follow up after discharge.
[2019-01-19] MEDS: LORazepam TAB(*) 0.5 MG PO PRN ×3 (11:30→22:56)
[2019-01-19 14:18] LABS: Body Fluid Source Cerebral Spinal
[2019-01-19 14:36] LABS: CSF Glucose 42 mg/dL (40-70)
[2019-01-19] MEDS: NS 0.9% w/ 40 Meq KCL 1000 ML* 1,000 ML IV SCH (16:15)
[2019-01-19] MEDS: Acetaminophen TAB* 325 MG PO PRN ×2 (16:15→22:59)
[2019-01-19] MEDS: Furosemide IV* 10 MG/ML 2 ML VIAL (20 MG) IV SCH (16:19)
--- NOTE | 2019-01-19 17:41 | PN ---
Subjective Date of Service: 01/19/19 Interval History: Patient seen and examined. No acute overnight events, daughter at bedside. Patient remains forgetful, mood appears improved. Denies acute SOB, no chest pain. Still complains of back pain and difficulty getting comfortable and ambulating. Remains with poor appetite. Objective Active Medications: Acetaminophen (Tylenol Tab*) 650 mg PO Q6H PRN PRN Reason: PAIN Last Admin: 01/19/19 16:15 Dose: 650 mg Atorvastatin Calcium (Lipitor*) 20 mg PO DAILY [facility] Last Admin: 01/19/19 09:12 Dose: 20 mg Calamine/Pramoxine (Caladryl Lotion*) 1 applic TOPICAL QID PRN PRN Reason: skin itching Docusate Sodium (Colace Cap*) 100 mg PO BID [facility] Last Admin: 01/19/19 09:13 Dose: Not Given Furosemide (Lasix Iv*) 20 mg IV DAILY [facility] Last Admin: 01/19/19 16:19 Dose: 20 mg Gabapentin (Neurontin Cap(*)) 600 mg PO BID [facility] Last Admin: 01/19/19 09:13 Dose: Not Given Heparin Sodium (Porcine) (Heparin Flush Picc/Ml/Cvc(*)) 1 - 3 ml FLUSH 0600, 1800 [facility]; Protocol Hydrocortisone (Hytone Cream 1%*) 1 applic TOPICAL BID [facility] Last Admin: 01/19/19 09:16 Dose: 1 applic Hydroxyzine HCl (Atarax Tab*) 25 mg PO Q6H PRN PRN Reason: ANXIETY Last Admin: 01/19/19 09:24 Dose: 25 mg Potassium Chloride/Sodium Chloride (Ns 0.9% W/ 40 Meq Kcl 1000 Ml*) 1,000 mls @ 75 mls/hr IV PER RATE [facility] Last Admin: 01/19/19 16:15 Dose: 75 mls/hr Cefazolin Sodium 1 gm/ Sodium (Chloride) 50 mls @ 200 mls/hr IVPB ONCE ONE Stop: 01/20/19 07:14 Levothyroxine Sodium (Synthroid Tab*) 50 mcg PO 0600 [facility] Last Admin: 01/19/19 06:52 Dose: 50 mcg Lidocaine (Lidoderm 5% Patch*) 1 patch TRANSDERM DAILY [facility] Last Admin: 01/19/19 09:12 Dose: 1 patch Lorazepam (Ativan Tab(*)) 0.25 mg PO Q8H PRN PRN Reason: ANXIETY Last Admin: 01/19/19 11:30 Dose: 0.25 mg Magnesium Hydroxide (Milk Of Magnesia Liq*) 30 ml PO BID [facility] Last Admin: 01/19/19 09:13 Dose: Not Given Magnesium Hydroxide (Milk Of Magnesia Liq*) 30 ml PO BID PRN PRN Reason: CONSTIPATION Magnesium Oxide (Magox 400 Tab*) 400 mg PO BID [facility] Last Admin: 01/19/19 09:13 Dose: Not Given Melatonin (Melatonin) 3 mg PO BEDTIME [facility] Last Admin: 01/18/19 23:22 Dose: 3 mg Ondansetron HCl (Zofran Inj*) 4 mg IV Q8H PRN PRN Reason: NAUSEA Last Admin: 01/13/19 04:29 Dose: 4 mg Pantoprazole Sodium (Protonix Tab*) 40 mg PO DAILY [facility] Last Admin: 01/19/19 09:12 Dose: 40 mg Pharmacy Profile Note (Lidocaine Patch Remove*) 1 note N/A 2100 [facility] Last Admin: 01/18/19 23:21 Dose: 1 note Polyethylene Glycol/Electrolytes (Miralax*) 17 gm PO DAILY PRN PRN Reason: CONSTIPATION Potassium Chloride (Klor Con Er Tab*) 20 meq PO DAILY [facility] Last Admin: 01/19/19 09:31 Dose: Not Given Senna (Senokot Tab*) 1 tab PO BEDTIME PRN PRN Reason: CONSTIPATION Vital Signs - 8 hr 01/19/19 11:30 Respiratory 20 Rate Oxygen Devices in Use Now: Nasal Cannula Appearance: alert, NAD Eyes: No Scleral Icterus, PERRLA Ears/Nose/Mouth/Throat: NL Teeth, Lips, Gums, Mucous Membranes Moist Neck: NL Appearance and Movements; NL JVP, Trachea Midline Respiratory: Symmetrical Chest Expansion and Respiratory Effort, - - diminished bases Cardiovascular: NL Sounds; No Murmurs; No JVD, RRR, No Edema Abdominal: NL Sounds; No Tenderness; No Distention Extremities: No Edema, No Clubbing, Cyanosis Skin: No Rash or Ulcers Neurological: Alert and Oriented x 3, - - forgetful, weak Nutrition: Taking PO's, - - poor intake Result Diagrams: 01/19/19 07:10 01/19/19 07:10 Microbiology and Other Data: Microbiology 01/06/19 09:00 Urine Culture - Final Urine Diagnostic Imaging: [facility] Patient Name:CALIXTO MAN MR: [id number] : 1935 IMPRESSION: 1. No pulmonary emboli. 2. Suspected primary lung neoplasm left hilum (T2b) with contralateral lymph nodes (N3) and associated pleural effusion, extrathoracic lymph nodes, and possible metastatic pathologic fracture of T6 (M1c). 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 Recommend biopsy of the primary lesion likely via bronchoscopy. Assess/Plan/Problems-Billing Assessment: This is an 83 year old lady with history of GERD, neuropathy, and nonmelanoma skin cancer who had had poor PO intake and declining functional status over hte past two months who was brought to the ED 01/05 because her family could not get her to eat, diagnosis of large B cell lymphoma. - Patient Problems (1) B-cell lymphoma Code(s): C85.10 - UNSPECIFIED B-CELL LYMPHOMA, UNSPECIFIED SITE SNOMED Code(s) : 290457597 Comment: - Final pathology: large B cell lymphoma - Oncology following - Diagnostic LP today, follow CSF studies, marrow biopsy also to be completed by onco today - Plan for PowerPort insertion in AM, patient has extremenly poor vascualr access (unable to obtain IV or labs x2 days), would prefer not to insert PICC as she is high risk for clot given new dx of malignancy, and has been off lovenox for 2 days for procedures - INR/PT and CBC in am - Vascular access able to insert midline today for procedure tomorrow - Defer to oncology for initiation of chemo plan (2) Anorexia Code(s): R63.0 - ANOREXIA SNOMED Code(s): 88045967 Comment: - combination of behavioral component and malignancy - Nutrition consultation - Did not tolerate marinol - Continue supplements and supportive care - Replete lytes, potassium low (3) Anxiety Code(s): F41.9 - ANXIETY DISORDER, UNSPECIFIED SNOMED Code(s): 88345114 Comment: - Atarax PRN - Ativan very low dose PRN, Q8H (4) Dementia Code(s): F03.90 - UNSPECIFIED DEMENTIA WITHOUT BEHAVIORAL DISTURBANCE SNOMED Code(s): 71234368 Comment: - MOCA = 14, suggestive of severe cognitive impairment with no prior for comparison - MRI brain unremarkable - RPR neg, vit B12 level WNL - Mentation improving with hydration and nutrition (5) SOB (shortness of breath) Code(s): R06.02 - SHORTNESS OF BREATH SNOMED Code(s): 607468176 Comment: - Acute hypoxemic resp failure on 01/10, recurred due to pulm edema ( suspect due to IVF earlier on hospital stay ) and diastolic dysfunction - Responded well to diuresis, but urine output decreased last 24 hours, will rehydrate gently this evening with NS in anticipation of NPO status for planned procedure and fluroscopy - Ambulated with walker today, will try to wean O2 (6) Protein-calorie malnutrition, moderate Code(s): E44.0 - MODERATE PROTEIN-CALORIE MALNUTRITION SNOMED Code(s): 545209508 Comment: - In setting of malignancy and poor intake - Nutrition following (7) DNR (do not resuscitate) Status and Disposition: Inpatient, pending auth for [place] for rehab and chemo treatment. Spoke with Cameron (son, HC proxy [phone]) and he is in agreement with procedures and plan of care.
[2019-01-19] MEDS: NS 0.9% 1000 ML** 1,000 ML IV SCH (18:27)
[2019-01-19] MEDS: Melatonin 3 MG TAB PO SCH (22:07)
[2019-01-19] MEDS: Lidocaine Patch REMOVE* 1 NOTE MISC SCH (22:15)
[2019-01-20] MEDS: Levothyroxine TAB* 50 MCG TAB PO SCH (06:33)
[2019-01-20] MEDS: hydrOXYzine HCL TAB* 25 MG PO PRN ×2 (06:34→11:55)
[2019-01-20 06:41] LABS: Hematocrit 29 % (35-47); Hemoglobin 9.5 g/dL (12.0-16.0); Mean Corpuscular HGB Conc 33 g/dL (31-36); Mean Corpuscular Hemoglobin 30 pg (27-31); Mean Corpuscular Volume 90 fL (80-97); Mean Platelet Volume 6.9 fL (7.4-10.4); Platelet Count 203 10^3/uL (150-450); Red Blood Count 3.19 10^6 /uL (3.70-4.87); Red Cell Distribution Width 21 % (10.5-15); White Blood Count 8.8 10^3/uL (3.5-10.8)
[2019-01-20 06:45] LABS: INR 1.18 (0.82-1.09)
[2019-01-20] MEDS ORDERED: ceFAZolin 1 GM ADVAN(*) 1 GM in NS 0.9% 50 ML* 50 ML IVPB ONE (07:00)
[2019-01-20] MEDS ORDERED: Midazolam* 1 MG/ML 2 ML VIAL (2 MG) ONE (08:02)
[2019-01-20] MEDS ORDERED: fentaNYL* 50 MCG/ML 2 ML VIAL (100 MCG VIAL) ONE (08:02)
[2019-01-20] MEDS: Acetaminophen TAB* 325 MG PO PRN (11:51)
[2019-01-20] MEDS: LORazepam TAB(*) 0.5 MG PO PRN ×2 (11:52→22:48)
[2019-01-20] MEDS: Docusate CAP* 100 MG PO SCH ×3 (11:54→21:19)
[2019-01-20] MEDS: Pantoprazole TAB * 40 MG TAB PO SCH (11:55)
[2019-01-20] MEDS: Atorvastatin* 20 MG TAB PO SCH (11:55)
[2019-01-20] MEDS: Gabapentin CAP(*) 300 MG PO SCH ×2 (11:56→21:19)
[2019-01-20] MEDS: Magnesium Hydroxide LIQ* 30 ML UDC PO SCH ×4 (11:56→22:43)
[2019-01-20] MEDS: Furosemide IV* 10 MG/ML 2 ML VIAL (20 MG) IV SCH (11:57)
[2019-01-20] MEDS: Magnesium Oxide TAB* 400 MG PO SCH ×2 (11:57→22:50)
[2019-01-20] MEDS: Potassium Chlor TAB* 20 MEQ TAB.ER PO SCH (11:57)
[2019-01-20] MEDS: Hydrocortisone 1% CREAM* 30 GM TUBE TOPICAL SCH ×2 (11:57→21:19)
[2019-01-20] MEDS: Lidocaine PATCH 5%* 1 PATCH TRANSDERM SCH (11:59)
--- NOTE | 2019-01-20 13:54 | PN ---
Subjective Date of Service: 01/20/19 Interval History: Ms. Martin denies complaint today. She is eager to move on to rehab when a bed is available. Objective Active Medications: Acetaminophen (Tylenol Tab*) 650 mg PO Q6H PRN Atorvastatin Calcium (Lipitor*) 20 mg PO DAILY [facility] Calamine/Pramoxine (Caladryl Lotion*) 1 applic TOPICAL QID PRN Docusate Sodium (Colace Cap*) 100 mg PO BID [facility] Furosemide (Lasix Iv*) 20 mg IV DAILY [facility] Gabapentin (Neurontin Cap(*)) 600 mg PO BID [facility] Heparin Sodium (Porcine) (Heparin Flush Picc/Ml/Cvc(*)) 1 - 3 ml FLUSH 0600, 1800 [facility]; Protocol Hydrocortisone (Hytone Cream 1%*) 1 applic TOPICAL BID [facility] Hydroxyzine HCl (Atarax Tab*) 25 mg PO Q6H PRN Sodium Chloride (Ns 0.9% 1000 Ml) 1,000 mls @ 75 mls/hr IV PER RATE [facility] Levothyroxine Sodium (Synthroid Tab*) 50 mcg PO 0600 [facility] Lidocaine (Lidoderm 5% Patch*) 1 patch TRANSDERM DAILY [facility] Lorazepam (Ativan Tab(*)) 0.25 mg PO Q8H PRN Magnesium Hydroxide (Milk Of Magnesia Liq*) 30 ml PO BID [facility] Magnesium Hydroxide (Milk Of Magnesia Liq*) 30 ml PO BID PRN Magnesium Oxide (Magox 400 Tab*) 400 mg PO BID [facility] Melatonin (Melatonin) 3 mg PO BEDTIME [facility] Ondansetron HCl (Zofran Inj*) 4 mg IV Q8H PRN Pantoprazole Sodium (Protonix Tab*) 40 mg PO DAILY [facility] Pharmacy Profile Note (Lidocaine Patch Remove*) 1 note N/A 2100 [facility] Polyethylene Glycol/Electrolytes (Miralax*) 17 gm PO DAILY [facility] Potassium Chloride (Klor Con Er Tab*) 20 meq PO DAILY [facility] Senna (Senokot Tab*) 1 tab PO BEDTIME PRN Vital Signs: Temp Pulse Resp BP Pulse Ox 98.2 F 80 19 126/61 100 01/20/19 13:08 01/20/19 13:08 01/20/19 13:08 01/20/19 13:08 01/20/19 13:08 Oxygen Devices in Use Now: Nasal Cannula Appearance: Female lying in bed in NAD Eyes: No Scleral Icterus Ears/Nose/Mouth/Throat: Mucous Membranes Moist Respiratory: Symmetrical Chest Expansion and Respiratory Effort, Clear to Auscultation Cardiovascular: NL Sounds; No Murmurs; No JVD, No Edema Extremities: No Edema Skin: No Rash or Ulcers Neurological: Alert and Oriented x 3, NL Muscle Strength and Tone Nutrition: Taking PO's Result Diagrams: 01/20/19 06:29 01/19/19 07:10 Microbiology and Other Data: . Diagnostic Imaging: . Assess/Plan/Problems-Billing Assessment: Ms. Martin is an 83 year old lady with history of GERD, neuropathy, and nonmelanoma skin cancer who had had poor PO intake and declining functional status over the past two months who was brought to the ED 01/05 because her family could not get her to eat, diagnosis of large B cell lymphoma. - Patient Problems (1) B-cell lymphoma Comment: - Final pathology: large B cell lymphoma. Oncology following - Diagnostic LP, bone marrow biopsy completed. - Port placed. Defer to oncology for initiation of chemo plan (2) Protein-calorie malnutrition, moderate Comment: - In setting of malignancy and poor intake - Nutrition following (3) SOB (shortness of breath) Comment: - Acute hypoxemic resp failure on 01/10, recurred due to pulm edema ( suspect due to IVF earlier on hospital stay ) and diastolic dysfunction - Responded well to diuresis, continue for now. Weaned off O2 at rest today, check with ambulation (4) SVT (supraventricular tachycardia) Comment: - episode occured 01/06 and resolved spontaneously, no further tele events - TTE okay, lytes okay - TSH elevated but was mistakenly ordered, as she had a normal TSH two days prior-- likely sicu thyroid (5) Anxiety Comment: - Atarax PRN - Ativan very low dose PRN, Q8H (6) Dementia Comment: - MOCA = 14, suggestive of severe cognitive impairment with no prior for comparison - MRI brain unremarkable - RPR neg, vit B12 level WNL - Mentation improving with hydration and nutrition (7) GERD (gastroesophageal reflux disease) Comment: - Cont omeprazole - Currently asymptomatic (8) Hyperlipidemia Comment: - Cont atorvastatin (9) Hypothyroidism Comment: - TSH elevated, however levothyroxine dose just adjusted earlier this month (10) DVT prophylaxis Comment: - adrianna (11) DNR (do not resuscitate) Comment: Status and Disposition: Inpatient, pending auth for [facility] for rehab and chemo treatment. Previous EMERGENCY DOCTOR spoke with Cameron (son, HC proxy [phone]) and he is in agreement with procedures and plan of care.
[2019-01-20] MEDS: NS 0.9% 1000 ML** 1,000 ML IV SCH (14:38)
--- NOTE | 2019-01-20 16:34 | PROCNOTE ---
Hematology/Oncology Procedure Hematology/Oncology Procedure Note: Bone marrow aspiration and biopsy: Written, informed consent obtained. Time out completed. Patient placed in R side lying position. L PSIS identified, prepped and draped in a sterile fashion. Local anesthesia with 2% lidocaine. Bone marrow aspiration and successfully completed. Patient tolerated reasonably well. Pressure held over biopsy site and bulky dressing placed.
[2019-01-20] MEDS: Lidocaine Patch REMOVE* 1 NOTE MISC SCH (21:19)
[2019-01-20] MEDS: Ondansetron INJ* 2 MG/ML VIAL IV PRN (22:18)
[2019-01-20] MEDS: Melatonin 3 MG TAB PO SCH (22:51)
[2019-01-21] MEDS: Levothyroxine TAB* 50 MCG TAB PO SCH (05:52)
[2019-01-21] MEDS: Gabapentin CAP(*) 300 MG PO SCH ×2 (07:08→20:44)
[2019-01-21] MEDS: Docusate CAP* 100 MG PO SCH ×2 (07:08→20:44)
[2019-01-21] MEDS: Lidocaine PATCH 5%* 1 PATCH TRANSDERM SCH (08:53)
[2019-01-21] MEDS ORDERED: Furosemide TAB* 20 MG PO SCH (09:00)
[2019-01-21] MEDS: Magnesium Hydroxide LIQ* 30 ML UDC PO SCH ×2 (09:49→20:45)
[2019-01-21] MEDS: Potassium Chlor TAB* 20 MEQ TAB.ER PO SCH (09:49)
[2019-01-21] MEDS: Pantoprazole TAB * 40 MG TAB PO SCH (09:49)
[2019-01-21] MEDS: Atorvastatin* 20 MG TAB PO SCH (09:49)
[2019-01-21] MEDS: Magnesium Oxide TAB* 400 MG PO SCH ×2 (09:49→21:02)
[2019-01-21] MEDS: Hydrocortisone 1% CREAM* 30 GM TUBE TOPICAL SCH ×2 (09:49→21:05)
[2019-01-21] MEDS: hydrOXYzine HCL TAB* 25 MG PO PRN ×2 (09:58→21:02)
[2019-01-21] MEDS: LORazepam TAB(*) 0.5 MG PO PRN ×2 (09:59→21:01)
[2019-01-21] MEDS: Acetaminophen TAB* 325 MG PO PRN ×3 (10:02→21:03)
--- NOTE | 2019-01-21 13:34 | PN ---
Subjective Date of Service: 01/21/19 Interval History: Ms. Martin denies any complaint today but she is eager for discharged to rehab and is frustrated that it may not happen today. Objective Active Medications: Acetaminophen (Tylenol Tab*) 650 mg PO Q6H PRN Atorvastatin Calcium (Lipitor*) 20 mg PO DAILY [facility] Calamine/Pramoxine (Caladryl Lotion*) 1 applic TOPICAL QID PRN Docusate Sodium (Colace Cap*) 100 mg PO BID CASS Furosemide (Lasix Tab*) 20 mg PO DAILY CASS Gabapentin (Neurontin Cap(*)) 600 mg PO BID [facility] Heparin Sodium (Porcine) (Heparin Flush Picc/Ml/Cvc(*)) 1 - 3 ml FLUSH 0600, 1800 [facility]ASS; Protocol Hydrocortisone (Hytone Cream 1%*) 1 applic TOPICAL BID CASS Hydroxyzine HCl (Atarax Tab*) 25 mg PO Q6H PRN Levothyroxine Sodium (Synthroid Tab*) 50 mcg PO 0600 [facility] Lidocaine (Lidoderm 5% Patch*) 1 patch TRANSDERM DAILY CASS Lorazepam (Ativan Tab(*)) 0.25 mg PO Q8H PRN Magnesium Hydroxide (Milk Of Magnesia Liq*) 30 ml PO BID CASS Magnesium Hydroxide (Milk Of Magnesia Liq*) 30 ml PO BID PRN Magnesium Oxide (Magox 400 Tab*) 400 mg PO BID [facility] Melatonin (Melatonin) 3 mg PO BEDTIME CASS Ondansetron HCl (Zofran Inj*) 4 mg IV Q8H PRN Pantoprazole Sodium (Protonix Tab*) 40 mg PO DAILY [facility] Pharmacy Profile Note (Lidocaine Patch Remove*) 1 note N/A 2100 [facility] Polyethylene Glycol/Electrolytes (Miralax*) 17 gm PO DAILY PRN Potassium Chloride (Klor Con Er Tab*) 20 meq PO DAILY CASS Senna (Senokot Tab*) 1 tab PO BEDTIME PRN Vital Signs: Temp Pulse Resp BP Pulse Ox 97.7 F 86 18 128/66 86 01/21/19 11:15 01/21/19 11:15 01/21/19 11:15 01/21/19 11:15 01/21/19 13:55 Oxygen Devices in Use Now: Nasal Cannula Appearance: Female lying in bed in NAD Eyes: No Scleral Icterus Ears/Nose/Mouth/Throat: Mucous Membranes Moist Neck: Trachea Midline Respiratory: Symmetrical Chest Expansion and Respiratory Effort, Clear to Auscultation Cardiovascular: NL Sounds; No Murmurs; No JVD, No Edema Abdominal: NL Sounds; No Tenderness; No Distention Extremities: No Edema Skin: No Rash or Ulcers Neurological: Alert and Oriented x 3, NL Muscle Strength and Tone Nutrition: Taking PO's Result Diagrams: 01/20/19 06:29 01/19/19 07:10 Microbiology and Other Data: . Diagnostic Imaging: . Assess/Plan/Problems-Billing Assessment: Ms. Martin is an 83 year old lady with history of GERD, neuropathy, and nonmelanoma skin cancer who had had poor PO intake and declining functional status over the past two months who was brought to the ED 01/05 because her family could not get her to eat, diagnosis of large B cell lymphoma. - Patient Problems (1) B-cell lymphoma Comment: - Final pathology: large B cell lymphoma. Oncology following, plan for outpatient chemotherapy - Diagnostic LP, bone marrow biopsy completed. - Port placed. (2) Protein-calorie malnutrition, moderate Comment: - In setting of malignancy and poor intake - Nutrition following (3) SOB (shortness of breath) Comment: - Acute hypoxemic resp failure on 01/10, recurred due to pulm edema ( suspect due to IVF earlier on hospital stay ) and diastolic dysfunction - Responded well to diuresis, d/c lasix. Weaned off O2 at rest yesterday, check with ambulation this afternoon, nursing staff aware (4) SVT (supraventricular tachycardia) Comment: - episode occured 01/06 and resolved spontaneously, no further tele events - TTE okay, lytes okay - TSH elevated but was mistakenly ordered, as she had a normal TSH two days prior-- likely sicu thyroid (5) Anxiety Comment: - Atarax PRN - Ativan very low dose PRN, Q8H (6) Dementia Comment: - MOCA = 14, suggestive of severe cognitive impairment with no prior for comparison - MRI brain unremarkable - RPR neg, vit B12 level WNL - Mentation improving with hydration and nutrition (7) GERD (gastroesophageal reflux disease) Comment: - Cont pantoprazole - Currently asymptomatic (8) Hyperlipidemia Comment: - Cont atorvastatin (9) Hypothyroidism Comment: - TSH elevated, however levothyroxine dose just adjusted earlier this month (10) DVT prophylaxis Comment: - adrianna (11) DNR (do not resuscitate) Comment: Status and Disposition: Inpatient, pending auth for [place] for rehab and chemo treatment. Previous [employer] spoke with Cameron (son, HC proxy [phone]) and he is in agreement with procedures and plan of care.
[2019-01-21] MEDS: Melatonin 3 MG TAB PO SCH (20:57)
[2019-01-21] MEDS: Lidocaine Patch REMOVE* 1 NOTE MISC SCH (21:15)
[2019-01-22] MEDS: Levothyroxine TAB* 50 MCG TAB PO SCH (05:57)
[2019-01-22 08:25] LABS: ABS Basophils 0.2 10^3/ul (0-0.2); ABS Eosinophils 1.8 10^3/ul (0-0.6); ABS Lymphocytes 1.7 10^3/ul (1.0-4.8); ABS Monocytes 0.6 10^3/ul (0-0.8); ABS Neutrophils 6.4 10^3/ul (1.5-7.7); Eosinophil % 16.7 %; Hematocrit 32 % (35-47); Hemoglobin 10.6 g/dL (12.0-16.0); Lymphocyte % 15.8 %; Mean Corpuscular HGB Conc 33 g/dL (31-36); Mean Corpuscular Hemoglobin 30 pg (27-31); Mean Corpuscular Volume 89 fL (80-97); Mean Platelet Volume 6.8 fL (7.4-10.4); Nucleated Red Blood Cells % 0.1; Platelet Count 226 10^3/uL (150-450); Red Blood Count 3.58 10^6 /uL (3.70-4.87); Red Cell Distribution Width 20 % (10.5-15); White Blood Count 10.8 10^3/uL (3.5-10.8)
[2019-01-22] MEDS: Lidocaine PATCH 5%* 1 PATCH TRANSDERM SCH (08:40)
[2019-01-22] MEDS: Potassium Chlor TAB* 20 MEQ TAB.ER PO SCH (08:41)
[2019-01-22] MEDS: Magnesium Oxide TAB* 400 MG PO SCH ×2 (08:41→21:46)
[2019-01-22 08:42] LABS: BUN/Creatinine Ratio 16.2 (8-20); Calcium 7.7 mg/dL (8.6-10.3); EGFR African American 90.9 (>60); EGFR Non-African American 75.1 (>60); Magnesium 1.9 mg/dL (1.9-2.7); Potassium 3.7 mmol/L (3.5-5.0)
[2019-01-22] MEDS: Pantoprazole TAB * 40 MG TAB PO SCH (08:42)
[2019-01-22] MEDS: Magnesium Hydroxide LIQ* 30 ML UDC PO SCH ×2 (08:42→22:04)
[2019-01-22] MEDS: Hydrocortisone 1% CREAM* 30 GM TUBE TOPICAL SCH ×2 (08:42→21:49)
[2019-01-22] MEDS: Atorvastatin* 20 MG TAB PO SCH (08:42)
[2019-01-22] MEDS: Docusate CAP* 100 MG PO SCH ×3 (08:42→21:49)
[2019-01-22] MEDS: LORazepam TAB(*) 0.5 MG PO PRN ×2 (08:43→21:44)
[2019-01-22] MEDS: Gabapentin CAP(*) 300 MG PO SCH ×2 (08:44→21:49)
--- NOTE | 2019-01-22 15:59 | PN ---
Subjective Date of Service: 01/22/19 Interval History: Patient reports she is very frustrated she has not been discharge to rehab yet. Reports she feels well physically, but emotionally she is not well as she is stressed with having to wait for discharge. Denies cp, sob, headache, dizziness, nausea, vomiting, diarrhea. Reports she is voiding well since hoskins was removed. She reports she has voided x2. Objective Active Medications: Acetaminophen (Tylenol Tab*) 650 mg PO Q6H PRN PRN Reason: PAIN Last Admin: 01/21/19 21:03 Dose: 650 mg Atorvastatin Calcium (Lipitor*) 20 mg PO DAILY [facility] Last Admin: 01/22/19 08:42 Dose: 20 mg Calamine/Pramoxine (Caladryl Lotion*) 1 applic TOPICAL QID PRN PRN Reason: skin itching Docusate Sodium (Colace Cap*) 100 mg PO BID [facility] Last Admin: 01/22/19 08:58 Dose: Not Given Gabapentin (Neurontin Cap(*)) 600 mg PO BID [facility] Last Admin: 01/22/19 08:44 Dose: Not Given Heparin Sodium (Porcine) (Heparin Flush Picc/Ml/Cvc(*)) 1 - 3 ml FLUSH 0600, 1800 [facility]; Protocol Last Admin: 01/22/19 05:57 Dose: 1 ml Hydrocortisone (Hytone Cream 1%*) 1 applic TOPICAL BID [facility] Last Admin: 01/22/19 08:42 Dose: Not Given Hydroxyzine HCl (Atarax Tab*) 25 mg PO Q6H PRN PRN Reason: ANXIETY Last Admin: 01/21/19 21:02 Dose: 25 mg Levothyroxine Sodium (Synthroid Tab*) 50 mcg PO 0600 [facility] Last Admin: 01/22/19 05:57 Dose: 50 mcg Lidocaine (Lidoderm 5% Patch*) 1 patch TRANSDERM DAILY [facility] Last Admin: 01/22/19 08:40 Dose: 1 patch Lorazepam (Ativan Tab(*)) 0.25 mg PO Q8H PRN PRN Reason: ANXIETY Last Admin: 01/22/19 08:43 Dose: 0.25 mg Magnesium Hydroxide (Milk Of Magnesia Liq*) 30 ml PO BID [facility] Last Admin: 01/22/19 08:42 Dose: Not Given Magnesium Hydroxide (Milk Of Magnesia Liq*) 30 ml PO BID PRN PRN Reason: CONSTIPATION Magnesium Oxide (Magox 400 Tab*) 400 mg PO BID [facility] Last Admin: 01/22/19 08:41 Dose: 400 mg Melatonin (Melatonin) 3 mg PO BEDTIME [facility] Last Admin: 01/21/19 20:57 Dose: 3 mg Ondansetron HCl (Zofran Inj*) 4 mg IV Q8H PRN PRN Reason: NAUSEA Last Admin: 01/20/19 22:18 Dose: 4 mg Pantoprazole Sodium (Protonix Tab*) 40 mg PO DAILY [facility] Last Admin: 01/22/19 08:42 Dose: 40 mg Pharmacy Profile Note (Lidocaine Patch Remove*) 1 note N/A 2100 [facility] Last Admin: 01/21/19 21:15 Dose: Not Given Polyethylene Glycol/Electrolytes (Miralax*) 17 gm PO DAILY PRN PRN Reason: CONSTIPATION Potassium Chloride (Klor Con Er Tab*) 20 meq PO DAILY [facility] Last Admin: 01/22/19 08:41 Dose: 20 meq Senna (Senokot Tab*) 1 tab PO BEDTIME PRN PRN Reason: CONSTIPATION Vital Signs - 8 hr 01/22/19 01/22/19 01/22/19 08:43 08:44 10:43 Temperature Pulse Rate Respiratory 18 18 18 Rate Blood Pressure (mmHg) O2 Sat by Pulse Oximetry 01/22/19 01/22/19 11:50 13:31 Temperature 97.9 F Pulse Rate 109 Respiratory 20 19 Rate Blood Pressure 95/54 122/70 (mmHg) O2 Sat by Pulse 100 99 Oximetry Oxygen Devices in Use Now: Nasal Cannula Appearance: Comfortable, NAD Eyes: No Scleral Icterus Ears/Nose/Mouth/Throat: Clear Oropharnyx, Mucous Membranes Moist Neck: NL Appearance and Movements; NL JVP Respiratory: Symmetrical Chest Expansion and Respiratory Effort Cardiovascular: NL Sounds; No Murmurs; No JVD, RRR, No Edema Abdominal: NL Sounds; No Tenderness; No Distention Lymphatic: No Cervical Adenopathy Extremities: No Edema Skin: No Rash or Ulcers Neurological: Alert and Oriented x 3 Nutrition: Taking PO's, - - Nurses report decrease in PO intake Result Diagrams: 01/22/19 08:05 01/22/19 08:05 Additional Lab and Data: Laboratory Results - last 24 hr 01/20/19 01/22/19 01/22/19 11:43 08:05 08:05 WBC 10.8 RBC 3.58 L Hgb 10.6 L Hct 32 L MCV 89 MCH 30 MCHC 33 RDW 20 H Plt Count 226 MPV 6.8 L Neut % (Auto) 59.6 Lymph % (Auto) 15.8 [place] % (Auto) 6.0 Eos % (Auto) 16.7 Baso % (Auto) 1.9 Absolute Neuts (auto) 6.4 Absolute Lymphs (auto) 1.7 Absolute Monos (auto) 0.6 Absolute Eos (auto) 1.8 H Absolute Basos (auto) 0.2 Absolute Nucleated RBC 0.0 Nucleated RBC % 0.1 Sodium 133 L Potassium 3.7 Chloride 95 L Carbon Dioxide 24 Anion Gap 14 H BUN 12 Creatinine 0.74 Est GFR ( Amer) 90.9 Est GFR (Non-Af Amer) 75.1 BUN/Creatinine Ratio 16.2 Glucose 64 L Calcium 7.7 L Magnesium 1.9 Flow Intrp 2-8 Markers Flow Intrp 9-15 Marker tnp Flow Intrp 16+ Markers tnp Microbiology and Other Data: . Diagnostic Imaging: . Assess/Plan/Problems-Billing Assessment: Ms. Martin is an 83 year old lady with history of GERD, neuropathy, and nonmelanoma skin cancer who had had poor PO intake and declining functional status over the past two months who was brought to the ED 01/05 because her family could not get her to eat, diagnosis of large B cell lymphoma. - Patient Problems (1) B-cell lymphoma Comment: - Final pathology: large B cell lymphoma. Oncology following, plan for outpatient chemotherapy - Diagnostic LP, bone marrow biopsy completed. - Port placed. (2) Anxiety Comment: - Atarax PRN - Ativan very low dose PRN, Q8H (3) Dementia Comment: - MOCA = 14, completed by previous provider suggestive of severe cognitive impairment with no prior for comparison - MRI brain unremarkable - RPR neg, vit B12 level WNL - Mentation improving (4) Protein-calorie malnutrition, moderate Comment: - In setting of malignancy and poor intake - Nutrition following (5) SOB (shortness of breath) Comment: - Acute hypoxemic resp failure on 01/10, recurred due to pulm edema ( suspect due to IVF earlier on hospital stay ) and diastolic dysfunction - Responded well to diuresis, d/c lasix. Weaned off O2 at rest yesterday. It appears (per nursing documentation) patient's O2 saturation meantains on room air at rest, but decreased to mid 80 on room air with ambulation. (6) SVT (supraventricular tachycardia) Comment: - episode occured 01/06 and resolved spontaneously, no further tele events - TTE okay, lytes okay - TSH elevated but was mistakenly ordered, as she had a normal TSH two days prior-- likely sicu thyroid (7) GERD (gastroesophageal reflux disease) Comment: - Cont pantoprazole - Currently asymptomatic (8) Hyperlipidemia Comment: - Cont atorvastatin (9) Hypothyroidism Comment: - Levothyroxine dose just adjusted earlier this month - Will need follow up TSH in approx 4 wks (10) DNR (do not resuscitate) Comment: (11) DVT prophylaxis Comment: - lovenox Status and Disposition: Inpatient, pending auth for [place] for rehab and chemo treatment. Previous [employer] spoke with Cameron (son, HC proxy [phone]) and he is in agreement with procedures and plan of care. Attending: Olga Petit
[2019-01-22] MEDS: hydrOXYzine HCL TAB* 25 MG PO PRN (21:45)
[2019-01-22] MEDS: Melatonin 3 MG TAB PO SCH (21:46)
[2019-01-22] MEDS: Acetaminophen TAB* 325 MG PO PRN (21:48)
[2019-01-22] MEDS: Lidocaine Patch REMOVE* 1 NOTE MISC SCH (22:25)
[2019-01-23] MEDS: hydrOXYzine HCL TAB* 25 MG PO PRN ×3 (02:51→16:36)
[2019-01-23] MEDS: Acetaminophen TAB* 325 MG PO PRN ×2 (02:55→08:45)
[2019-01-23] MEDS: Levothyroxine TAB* 50 MCG TAB PO SCH (05:33)
[2019-01-23] MEDS: Pantoprazole TAB * 40 MG TAB PO SCH (08:54)
[2019-01-23] MEDS: Lidocaine PATCH 5%* 1 PATCH TRANSDERM SCH (08:54)
[2019-01-23] MEDS: LORazepam TAB(*) 0.5 MG PO PRN (09:00)
[2019-01-23] MEDS: Atorvastatin* 20 MG TAB PO SCH (09:04)
[2019-01-23] MEDS: Gabapentin CAP(*) 300 MG PO SCH (09:13)
[2019-01-23] MEDS: Magnesium Hydroxide LIQ* 30 ML UDC PO SCH (09:13)
[2019-01-23] MEDS: Hydrocortisone 1% CREAM* 30 GM TUBE TOPICAL SCH (09:13)
[2019-01-23] MEDS: Docusate CAP* 100 MG PO SCH (09:13)
[2019-01-23] MEDS: Magnesium Oxide TAB* 400 MG PO SCH (09:13)
[2019-01-23] MEDS: Potassium Chlor TAB* 20 MEQ TAB.ER PO SCH (09:13)
[2019-01-23 12:30] VITALS: BP 137/66
--- NOTE | 2019-01-23 14:47 | DS ---
Amended report to enter cosigning physician. CC: Dr. Naomi Ratliff; [facility]; Dr. Rutledge; Dr. Almeida* DISCHARGE SUMMARY: DATE OF ADMISSION: 01/05/19 DATE OF DISCHARGE: 01/23/19 PRIMARY CARE PROVIDER: Dr. Naomi Ratliff. The patient will also be under the care of providers at [facility]. ATTENDING PHYSICIAN: Dr. Yrn Baeza* (dictated by Dr. Mya Doe, DEMOLITION WORKER). PRIMARY DIAGNOSES: 1. B-cell lymphoma. 2. Protein-calorie malnutrition. 3. Shortness of breath 4. Supraventricular tachycardia. 5. Anxiety. 6. Dementia. SECONDARY DIAGNOSES: 1. Gastroesophageal reflux disease. 2. Hyperlipidemia. 3. Hypothyroid. 4. Neuropathy. 5. Skin cancer CONSULTATIONS WHILE IN THE HOSPITAL: 1. Oncology, Dr. Rutledge. 2. Dr. Almeida. PROCEDURES WHILE IN THE HOSPITAL: 1. Port insertion. 2. Axillary lymph node biopsy. 3. EGD DISCHARGE HOME MEDICATIONS: Continued Home Medications: 1. Permethrin 5% cream 1 application topical. 2. Acetaminophen 650 mg p.o. q.6 hours p.r.n. 3. Triamcinolone 0.1% one application topical b.i.d. 4. Omeprazole 40 mg p.o. daily. 5. Synthroid 50 mcg p.o. daily. 6. Simvastatin 40 mg p.o. daily. 7. Mag ox 400 mg p.o. b.i.d. 8. Gabapentin 600 mg p.o. b.i.d. Changed Home Medications: Ativan was previously 1 mg p.o. daily as needed and has been changed to Ativan 0.25 mg p.o. q.8 hours p.r.n. [place] Medications: 1. Atarax 25 mg p.o. q.6 hours p.r.n. anxiety. 2. Lidocaine 1 patch transdermal daily. 3. Melatonin 3 mg p.o. at bedtime. 4. Prednisone 50 mg gives day 1 through 5 of chemotherapy cycle every 3 weeks per Oncology. 5. Compazine 10 mg p.o. q.6 hours p.r.n. nausea per Oncology. 6. Zofran 4 mg p.o. p.r.n. q. 4 hours p.r.n. for nausea per Oncology. HISTORY OF PRESENT ILLNESS/HOSPITAL COURSE: Ms. Martin is a 83-year-old female with past medical history significant for GERD, hyperlipidemia, hypothyroidism, neuropathy, recurrent skin cancer; who presented to the emergency department on 01/05/19 due to 1 month of weakness, nausea, decreased oral intake. Please see history and physical dictated by Bhumika Cartagena MD for complete summary of events leading up to the hospitalization, but in short, the patient was admitted to the hospital given the severity of her symptoms and this was her second presentation to the emergency room in 1 month. While admitted, the patient underwent an extensive evaluation given the progression of her weakness, weight loss and vomiting. She had a CT of her chest, which revealed scattered lymphadenopathy, therefore Oncology was asked to consult for possible malignancy. CT was completed and also demonstrated large right lung mass in association with significant lymphadenopathy. The patient underwent biopsy of an axilla lymph node, which revealed large B-cell lymphoma. Given the findings , the patient also underwent the diagnostic LP and bone marrow biopsy. Findings and treatment were discussed with family and the decision was made for the patient to undergo chemo and therefore a port was placed. It should also be mentioned that during her stay, she underwent upper endoscopy given her nausea and persistent dysphasia this admission, which was unremarkable. Finally, the patient's hospital stay was complicated by the episode of shortness of breath, SVT, and her protein-calorie malnutrition. The patient had two episodes of acute hypoxic respiratory failure on 01/10/19 and 01/12/19, which was thought to be secondary to pulmonary edema secondary to IV fluid given earlier in hospital stay in conjunction with her diastolic dysfunction. She responded well to diuresis. The patient was able to be weaned off supplemental oxygen at rest, still requires 2 L nasal cannula with ambulation as she as her saturation was noted to decrease to 86% on room air. The patient had one episode of SVT on 01/06/19, which resolved spontaneously. She has been free from other events on telemetry since that time. Transthoracic echo was completed with no concerning findings and her electrolytes were monitored. For the malnutrition, the patient has been followed by a Nutrition who recommended regular unrestricted diet with soft textures and extra gravy. The patient is stable to [facility] today. REVIEW OF SYSTEMS: A 14-point review of systems was completed and all were negative. PHYSICAL EXAM: General: Ms. Martin is an 83-year-old female who is sitting in recliner. Appears to be in no acute distress. Appears stated age. Vital Signs : Temp 97.3, O2 saturation 97% on room air, pulse 84, RR 16, BP 130/70. HEENT: EOMs intact. PERRLA. Oral mucosa is moist without lesion. Posterior pharynx is clear. Neck: Supple. No lymphadenopathy. Cardiac: S1, S2 present. No murmurs, rubs or gallops. Regular rate and rhythm. Respiratory: Lungs are clear to auscultation. Good aeration. No rhonchi, wheezes, rales. Abdomen: Soft, nontender. Bowel sounds normoactive throughout. The patient is stooling and urinating without difficulty. Extremities: No clubbing or cyanosis. No edema. Pedal pulses present bilaterally. Musculoskeletal: No pain or deformities. Skin: Skin is intact. Neuro: Grossly intact. The patient is alert and oriented x3. No focal weakness or deficits. LABORATORY DATA: Obtained 01/22/19; WBC 10.8, hemoglobin 10.6, hematocrit 32, platelets 226. Sodium 133, potassium 3.7, chloride 95, carbon dioxide 24, anion gap 14, BUN 12, creatinine 0.74, glucose 74, magnesium 1.9. DISCHARGE PLAN/FOLLOWUP: 1. B-cell lymphoma: Oncology is following, planning treatment, and as set up follow up appointments. Per social work, family will be transporting patient to her treatments. 2. Protein-calorie malnutrition: The patient should have an unrestricted diet with soft texture and extra gravies as mentioned above. The patient should have protein rich foods. 3. Shortness of breath: This has resolved and was secondary to pulmonary edema. The patient should be monitored. The patient should be provided with supplemental oxygen with ambulation, but can be on room air at rest. 4. SVT: Once again this has resolved. The patient should be monitored accordingly. 5. Anxiety: She should continue the patient's Atarax and Ativan as needed. 6. Dementia: During the admission, the patient was noted to have some cognitive impairment. A MoCA scale was completed and was 14. Brain MRI was unremarkable. It should be mentioned that the patient's mentation did improve with hydration and nutrition. She would benefit from further evaluation with primary care provider 7. GERD: The patient should continue her PPI. 8. Hyperlipidemia: The patient should continue atorvastatin. 9. Hypothyroidism: The patient should continue her levothyroxine at the current dose. Her TSH was elevated here on admission, but it was also mentioned that her dose was adjusted earlier this month. Therefore, I would recommend rechecking a TSH in early February. 10. Followup: The patient should follow up with her primary care in 1 week. The patient should follow up with Oncology as instructed. This is a summarized report of a complex medical history and hospital stay. For further details, please see the entire medical record. TIME SPENT: Approximately 45 minutes was spent on this discharge, greater than half of that time was spent [id number] with the patient discussing discharge plans and instructions. Reviewed by MYA DOE NP 01/23/19 @ 1500 [id number]/CPS #: [id number]
== END 2019-01-23 17:05 | DRG 823 ==
LOC: ED 19:42 → MED 01-05 06:05 → MEDTELE 01-06 12:07 → MED 01-16 23:58
PROVIDERS: ADMIT Internal Medicine; ATTEND Hospitalist
PROC: 0DB98ZX Excision of Duodenum, Via Natural or Artificial Opening Endoscopic, Diagnostic (ICD-10-PCS; 2019-01-07)
PROC: 0DB78ZX Excision of Stomach, Pylorus, Via Natural or Artificial Opening Endoscopic, Diagnostic (ICD-10-PCS; 2019-01-07)
PROC: 0DJD8ZZ Inspection of Lower Intestinal Tract, Via Natural or Artificial Opening Endoscopic (ICD-10-PCS; 2019-01-09)
PROC: 0DJD8ZZ Inspection of Lower Intestinal Tract, Via Natural or Artificial Opening Endoscopic (ICD-10-PCS; 2019-01-09)
PROC: 07963ZX Drainage of Left Axillary Lymphatic, Percutaneous Approach, Diagnostic (ICD-10-PCS; 2019-01-16)
PROC: 07DR3ZX Extraction of Iliac Bone Marrow, Percutaneous Approach, Diagnostic (ICD-10-PCS; principal; 2019-01-20)
PROC: 0JH63WZ Insertion of Totally Implantable Vascular Access Device into Chest Subcutaneous Tissue and Fascia, Percutaneous Approach (ICD-10-PCS; 2019-01-20)
PROC: 05HM33Z Insertion of Infusion Device into Right Internal Jugular Vein, Percutaneous Approach (ICD-10-PCS; 2019-01-20)
DX: C83.34 Diffuse large B-cell lymphoma, lymph nodes of axilla and upper limb (principal); J96.01 Acute respiratory failure with hypoxia; I47.1 Supraventricular tachycardia; J81.1 Chronic pulmonary edema; E44.0 Moderate protein-calorie malnutrition; Z66 Do not resuscitate; Z68.27 Body mass index [BMI] 27.0-27.9, adult; F41.9 Anxiety disorder, unspecified; F03.90 Unspecified dementia, unspecified severity, without behavioral disturbance, psychotic disturbance, mood disturbance, and anxiety; K21.9 Gastro-esophageal reflux disease without esophagitis; I10 Essential (primary) hypertension; K44.9 Diaphragmatic hernia without obstruction or gangrene; M19.079 Primary osteoarthritis, unspecified ankle and foot; F41.0 Panic disorder [episodic paroxysmal anxiety]; F32.9 Major depressive disorder, single episode, unspecified; E86.0 Dehydration; E83.51 Hypocalcemia; R74.8 Abnormal levels of other serum enzymes; E87.6 Hypokalemia; R45.1 Restlessness and agitation; L30.9 Dermatitis, unspecified; R59.0 Localized enlarged lymph nodes; R13.10 Dysphagia, unspecified; R91.8 Other nonspecific abnormal finding of lung field; K31.7 Polyp of stomach and duodenum; D64.9 Anemia, unspecified; R62.7 Adult failure to thrive; E78.5 Hyperlipidemia, unspecified; E03.9 Hypothyroidism, unspecified; G62.9 Polyneuropathy, unspecified; T50.995A Adverse effect of other drugs, medicaments and biological substances, initial encounter; Y92.9 Unspecified place or not applicable; R41.89 Other symptoms and signs involving cognitive functions and awareness; Z91.041 Radiographic dye allergy status; Z98.42 Cataract extraction status, left eye; Z98.41 Cataract extraction status, right eye; Z85.828 Personal history of other malignant neoplasm of skin; Z90.710 Acquired absence of both cervix and uterus; Z90.49 Acquired absence of other specified parts of digestive tract; Z86.19 Personal history of other infectious and parasitic diseases; Z79.890 Hormone replacement therapy; Z87.440 Personal history of urinary (tract) infections; Z80.1 Family history of malignant neoplasm of trachea, bronchus and lung; Z80.8 Family history of malignant neoplasm of other organs or systems
CPT/HCPCS: 10021; 36415; 36561; 36600; 38222; 62270; 70450; 70551; 71045; 71275; 74176; 76937; 77001; 80048; 80053; 81003; 81015; 81479; 82378; 82607; 82728; 82746; 82803; 82945; 82977; 83540; 83605; 83615; 83735; 84100; 84157; 84443; 84484; 85025; 85027; 85060; 85097; 85610; 85652; 86140; 86301; 86703; 86780; 87077; 87086; 88172; 88173; 88184; 88187; 88188; 88189; 88305; 88311; 88313; 88341; 88342; 88360; 88377; 89051; 93005; 93306; 99156; 99157; 99233; 99284; A9270-GY; C1788; G8978-GP-CJ; G8978-GP-CK; G8979-GP-CH; G8979-GP-CI; G8987-GO-CL; G8988-GO-CI; J0690; J1630; J1642; J1650; J1940; J2250; J2270; J2405; J3010; J3475; J3480; J3490; J7512; Q9967